=== PATIENT | female | born 1945 | race Caucasian/White ===

== ENCOUNTER 2018-05-03 20:23 | Inpatient (IN) | payer MEDICARE ==
[~2018-05-03] VITALS: Ht 170.2 cm; Wt 70.4 kg
[2018-05-03 21:15] LABS: BASO # 0.1 x10^3/uL (0.0-0.2); BASO % 1 % (0-3); EOS # 0.2 x10^3/uL (0.0-0.7); EOS % 4 % (0-3); HEMATOCRIT 42.4 % (36.0-47.0); HEMOGLOBIN 14.3 g/dL (12.0-15.5); LYMPH # 1.3 x10^3/uL (1.0-4.8); LYMPH % 26 % (24-48); MEAN CORPUSCULAR HEMOGLOBIN 30 pg (25-35); MEAN CORPUSCULAR HGB CONC 34 g/dL (31-37); MEAN CORPUSCULAR VOLUME 89 fL (79-100); MONO # 0.7 x10^3/uL (0.0-1.1); MONO % 14 % (0-9); NEUT # 2.7 x10^3uL (1.8-7.7); NEUT % 55 % (31-73); PLATELET COUNT 232 x10^3/uL (140-400); RED BLOOD COUNT 4.76 x10^6/uL (3.50-5.40); RED CELL DISTRIBUTION WIDTH 13.6 % (11.5-14.5)
[2018-05-03 21:24] LABS: ALBUMIN 3.4 g/dL (3.4-5.0); CALCIUM 9.1 mg/dL (8.5-10.1); CREATININE 0.9 mg/dL (0.6-1.0); GFR 61.5; MAGNESIUM 2.1 mg/dL (1.8-2.4); TOTAL BILIRUBIN 0.5 mg/dL (0.2-1.0); TOTAL PROTEIN 6.7 g/dL (6.4-8.2)
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
[2018-05-03 21:35] LABS: BACTERIA,URINE FEW /HPF (0-FEW); BILIRUBIN,URINE NEG (NEG); CLARITY,URINE HAZY; COLOR,URINE YELLOW; GLUCOSE,URINE NEG (NEG); NITRITE,URINE NEG (NEG); SQUAMOUS EPITHELIAL CELL,UR MOD /LPF; UROBILINOGEN,URINE 0.2 mg/dL (0.2 mg/dL); WBC,URINE 20-40 /HPF (0-4)
--- NOTE | 2018-05-03 21:47 | EKG ---
[address] [address] Test Date: 2018-05-03 Test Time: 21:39:44 Pat Name: TRA MORENO Department: Room: Gender: F Vascular Sonographer: BENJAMÍN : 1945 Requested By: LIAT FINNEY Order Number: [id number] Reading MD: Roberto Zuniga MD Measurements Intervals [place] Rate: 53 P: 40 [place]: 162 QRS: -12 QRSD: 94 T: 17 QT: 432 QTc: 408 Interpretive Statements SINUS RHYTHM Electronically Signed On 05-05-2018 13:15:29 CDT by Roberto Zuniga MD
[2018-05-03] MEDS ORDERED: cefTRIAXone SODIUM 1 GM VIAL IV ONE (22:37)
[2018-05-03] MEDS ORDERED: cefTRIAXone IM 1 GM VIAL IM ONE (22:45)
[2018-05-03] MEDS ORDERED: ACETAMINOPHEN 325 MG TABLET PO PRN (23:15)
[2018-05-03] MEDS ORDERED: METHYL SALICYLATE/MENTHOL TOPICAL OINTMENT 29GM TUBE. TP PRN (23:15)
[2018-05-03] MEDS ORDERED: MAGNESIUM HYDROXIDE 2,400 MG/30 ML ORAL.SUSP. PO PRN (23:15)
[2018-05-03] MEDS ORDERED: MAG HYDROX/AL HYDROX/SIMETH 30 ML ORAL.SUSP PO PRN (23:15)
[2018-05-03] MEDS ORDERED: CEPH-264 PO (23:59)
[2018-05-03] MEDS ORDERED: OMEP20TA8 PO (23:59)
[2018-05-03] MEDS ORDERED: METH5TAB85 PO (23:59)
[2018-05-03] MEDS ORDERED: HYDR28.311 RC ×2 (23:59)
[2018-05-03] MEDS ORDERED: ACET325T9 PO ×2 (23:59)
[2018-05-03] MEDS ORDERED: METO50TA6 PO (23:59)
[2018-05-03] MEDS ORDERED: TRAM-48 PO (23:59)
[2018-05-03] MEDS ORDERED: QUET25TA5 PO ×2 (23:59)
[2018-05-03] MEDS ORDERED: CITA10TA4 PO (23:59)
[2018-05-03] MEDS ORDERED: ONDA4TAB11 PO (23:59)
[2018-05-03] MEDS ORDERED: MULT-658 PO (23:59)
[2018-05-04] MEDS ORDERED: NON FORMULARY ITEM (Quetiapine Fumarate (Seroquel) 25 MG) PO PRN (00:15)
[2018-05-04] MEDS ORDERED: ACETAMINOPHEN 325 MG TABLET PO PRN (00:15)
[2018-05-04] MEDS ORDERED: HYDROCORTISONE 2.5% RECTAL CREAM 30GM TUBE. RC PRN (00:15)
[2018-05-04] MEDS ORDERED: NON FORMULARY ITEM (Ondansetron Hcl 4 MG) PO PRN (00:15)
[2018-05-04] MEDS ORDERED: ONDANSETRON ODT 4 MG TAB.RAPDIS PO PRN (02:30)
[2018-05-04] MEDS ORDERED: METHIMAZOLE 5 MG PO SCH (06:00)
[2018-05-04] MEDS ORDERED: NON FORMULARY ITEM (Cephalexin (Keflex) 500 MG) PO SCH (06:00)
[2018-05-04] MEDS: CEPHALEXIN 250 MG CAPSULE PO SCH ×3 (06:01→17:18)
[2018-05-04 06:10] VITALS: BP 136/65
[2018-05-04] MEDS ORDERED: NON FORMULARY ITEM (Omeprazole 20 MG) PO SCH (07:00)
[2018-05-04] MEDS: PANTOPRAZOLE 40 MG TABLET. PO SCH (07:30)
[2018-05-04] MEDS ORDERED: METOPROLOL TARTRATE 50 MG PO SCH (09:00)
[2018-05-04] MEDS: METOPROLOL TART IMMED RELEASE 50 MG TABLET PO SCH ×2 (09:00→21:16)
[2018-05-04] MEDS: ACETAMINOPHEN 325 MG TABLET PO SCH ×2 (09:00→21:17)
[2018-05-04] MEDS ORDERED: NON FORMULARY ITEM (Multivits-Min/Fa/Lycopene/Lut (Centrum Silver Tablet) 1 EACH) PO SCH (09:00)
[2018-05-04] MEDS: CITALOPRAM 10 MG TABLET. PO SCH (09:00)
[2018-05-04] MEDS: MULTIVITAMIN with MINERAL TABLET. PO SCH (09:00)
[2018-05-04] MEDS: QUEtiapine 25 MG TABLET. PO PRN (10:13)
[2018-05-04 10:35] LABS: HDLC 51 mg/dL (40-60); LDLC 68 mg/dL (0-100); TRIGLYCERIDES 121 mg/dL (0-150); VLDLC 24 mg/dL (0-40)
[2018-05-04 10:36] LABS: THYROID STIM HORMONE (TSH) < 0.007 uIU/mL (0.358-3.740)
[2018-05-04 12:10] LABS: HEMOGLOBIN A1C 5.5 % (4.8-5.6)
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
[2018-05-04 16:20] VITALS: BP 115/66
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
--- NOTE | 2018-05-04 20:59 | PDOC ---
Exam Note: [place] Note: Please also refer to the separate dictated note~for this date of service dictated separately.~Patient seen individually. Discussed the patient with Nursing staff reviewed the chart.~Reviewed interim history and current functioning. Reviewed vital signs,~Labs/ Radiology~and current medications noted below. Continue current treatment with the changes noted in the dictated addendum note Assessment: Vital Signs: Vital Signs Date Time Temp Pulse Resp B/P (MAP) Pulse Ox O2 Delivery O2 Flow Rate FiO2 05/04/18 16:20 98.3 100 16 115/66 (82) 95 05/04/18 06:10 Room Air Current Medications: Meds: Current Medications Ceftriaxone Sodium 1 gm/ Sodium Chloride 50 ml @ 100 mls/hr 1X ONCE IV ; Start 05/03/18 at 22:30; Stop 05/03/18 at 22:30; Status DC Ceftriaxone Sodium (Rocephin Im) 1 gm 1X ONCE IM Last administered on at 22:46; Start 05/03/18 at 22:45; Stop 05/03/18 at 23:54; Status DC Ceftriaxone Sodium (Rocephin) 1 gm STK-MED ONCE IV ; Start 05/03/18 at 22:37; Stop 05/03/18 at 22:38; Status DC Acetaminophen (Tylenol) 650 mg PRN Q6HRS PRN PO PAIN / TEMP; Start 05/03/18 at 23:15; Status Cancel Multi-Ingredient Ointment (Analgesic [place]) 1 bessy PRN QID PRN TP MUSCLE PAIN; Start 05/03/18 at 23:15 Al Hydroxide/Mg Hydroxide (Mylanta Plus Xs) 15 ml PRN AFTMEALHC PRN PO DYSPEPSIA; Start 05/03/18 at 23:15 Magnesium Hydroxide (Milk Of Magnesia) 2,400 mg PRN QHS PRN PO CONSTIPATION; Start 05/03/18 at 23:15 Citalopram Hydrobromide (CeleXA) 10 mg DAILY PO ; Start 05/04/18 at 09:00 Non-Formulary Medication (Quetiapine Fumarate (Seroquel)) 25 mg PRN DAILY PRN PO AGITATION; Start 05/04/18 at 00:15; Status UNV Non-Formulary Medication (Quetiapine Fumarate (Seroquel)) 25 mg QHS PO ; Start 05/04/18 at 21:00; Status UNV Acetaminophen (Tylenol) 650 mg BID PO ; Start 05/04/18 at 09:00 Acetaminophen (Tylenol) 650 mg PRN Q6HRS PRN PO PAIN; Start 05/04/18 at 00:15 Hydrocortisone (Proctosol-Hc) 1 bessy PRN BID PRN RC RECTAL PAIN; Start 05/04/18 at 00:15 Tramadol HCl (Ultram) 50 mg PRN BID PRN PO PAIN; Start 05/04/18 at 00:15 Non-Formulary Medication (Cephalexin (Keflex)) 500 mg Q6HRS PO ; Start 05/04/18 at 06:00; Status UNV Non-Formulary Medication (Methimazole (Tapazole)) 5 mg Q8HRS PO ; Start 05/04/18 at 06:00; Status UNV Non-Formulary Medication (Metoprolol Tartrate ) 50 mg BID PO ; Start 05/04/18 at 09:00; Stop 05/04/18 at 09:00; Status Cancel Non-Formulary Medication (Multivits-Min/ Fa/Lycopene/Lut (Centrum Silver Tablet) ) 1 each DAILY PO ; Start 05/04/18 at 09:00; Stop 05/04/18 at 09:00; Status DC Non-Formulary Medication (Omeprazole ) 20 mg DAILY07 PO ; Start 05/04/18 at 07:00 ; Stop 05/04/18 at 07:00; Status DC Non-Formulary Medication (Ondansetron Hcl ) 4 mg PRN TID PRN PO NAUSEA/VOMITING ; Start 05/04/18 at 00:15; Status UNV Cephalexin HCl (Keflex) 500 mg Q6HRS PO Last administered on 05/04/18at 17:18; Start 05/04/18 at 06:00; Stop 05/06/18 at 19:00 Methimazole (Tapazole) 5 mg Q8HRS PO Last administered on 05/04/18at 13:53; Start 05/04/18 at 06:00 Quetiapine Fumarate (SEROquel) 25 mg HS PO ; Start 05/04/18 at 21:00 Quetiapine Fumarate (SEROquel) 25 mg PRN DAILY PRN PO ANXIETY / AGITATION Last administered on 05/04/18at 10:13; Start 05/04/18 at 02:30 Ondansetron HCl (Zofran Odt) 4 mg PRN TID PRN PO NAUSEA/VOMITING; Start at 02:30 Metoprolol Tartrate (Lopressor) 50 mg BID PO ; Start 05/04/18 at 09:00 Multivitamins/ Calcium (Thera-M Plus) 1 tab DAILY PO ; Start 05/04/18 at 09:00 Pantoprazole Sodium (Protonix) 40 mg DAILYAC PO ; Start 05/04/18 at 07:30 Trazodone HCl (Desyrel) 25 mg PRN QHS PRN PO INSOMNIA, MAY REPEAT X1; Start 05/04/18 at 19:45 Active Scripts Active Reported Proctosol-Hc (Hydrocortisone) 28.35 Gm Cream..g. 1 Applic RC BID Proctosol-Hc (Hydrocortisone) 28.35 Gm Cream..g. 1 Applic RC PRN BID PRN Ondansetron Hcl 4 Mg Tablet 4 Mg PO PRN TID PRN Metoprolol Tartrate 50 Mg Tablet 50 Mg PO BID Omeprazole 20 Mg Tablet.dr 20 Mg PO DAILY07 Citalopram Hbr (Citalopram Hydrobromide) 10 Mg Tablet 10 Mg PO DAILY Centrum Silver Tablet (Multivits-Min/Fa/Lycopene/Lut) 1 Each Tablet 1 Each PO DAILY Keflex (Cephalexin) 500 Mg Capsule 500 Mg PO Q6HRS Ultram (Tramadol HCl) 50 Mg Tablet 50 Mg PO BID PRN Tapazole (Methimazole) 5 Mg Tablet 5 Mg PO Q8HRS Seroquel (Quetiapine Fumarate) 25 Mg Tablet 25 Mg PO PRN DAILY PRN Seroquel (Quetiapine Fumarate) 25 Mg Tablet 25 Mg PO QHS Tylenol (Acetaminophen) 325 Mg Tablet 650 Mg PO BID Tylenol (Acetaminophen) 325 Mg Tablet 650 Mg PO PRN Q6HRS PRN I have reviewed the current psychotropics carefully including drug interactions. Risk benefit ratio favors no change other than as noted in my dictated progress note. Diagnosis: Problems: (1) Dementia due to Alzheimer's disease (2) Anxiety disorder (3) Dementia in Alzheimer's disease with delusions (4) Dementia in Alzheimer's disease with depression (5) Dementia, vascular, with delusions (6) Dementia, vascular, with depression (7) Impulse control disorder KADEN RIVAS MD May 04, 2018 20:59
[2018-05-04] MEDS ORDERED: NON FORMULARY ITEM (Quetiapine Fumarate (Seroquel) 25 MG) PO SCH (21:00)
[2018-05-04] MEDS: traZODone 50 MG TABLET. PO PRN (21:16)
[2018-05-04] MEDS: QUEtiapine 25 MG TABLET. PO SCH (21:17)
[2018-05-05] MEDS: CEPHALEXIN 250 MG CAPSULE PO SCH ×5 (00:07→23:53)
[2018-05-05] MEDS: traZODone 50 MG TABLET. PO PRN ×3 (00:31→22:12)
[2018-05-05 06:21] VITALS: BP 116/63
[2018-05-05] MEDS: METOPROLOL TART IMMED RELEASE 50 MG TABLET PO SCH ×2 (09:00→20:48)
[2018-05-05] MEDS: ACETAMINOPHEN 325 MG TABLET PO SCH ×2 (09:39→20:48)
[2018-05-05] MEDS: PANTOPRAZOLE 40 MG TABLET. PO SCH (09:39)
[2018-05-05] MEDS: CITALOPRAM 10 MG TABLET. PO SCH (09:39)
[2018-05-05] MEDS: MULTIVITAMIN with MINERAL TABLET. PO SCH (09:39)
[2018-05-05 16:03] VITALS: BP 142/82
[2018-05-05] MEDS: QUEtiapine 25 MG TABLET. PO SCH (20:47)
[2018-05-05] MEDS: MIRTAZAPINE 7.5 MG TABLET. PO SCH (20:47)
--- NOTE | 2018-05-05 21:00 | PDOC ---
Exam Note: [place] Note: Please also refer to the separate dictated note~for this date of service dictated separately.~Patient seen individually. Discussed the patient with Nursing staff reviewed the chart.~Reviewed interim history and current functioning. Reviewed vital signs,~Labs/ Radiology~and current medications noted below. Continue current treatment with the changes noted in the dictated addendum note Assessment: Vital Signs: Vital Signs Date Time Temp Pulse Resp B/P (MAP) Pulse Ox O2 Delivery O2 Flow Rate FiO2 05/05/18 20:48 109 142/82 05/05/18 16:03 18 05/05/18 06:21 97.5 93 05/04/18 06:10 Room Air I&O Intake and Output 05/05/18 06:59 Intake Total 580 ml Balance 580 ml Intake Oral 580 ml # Voids 1 # Bowel Movements 1 Current Medications: Meds: Current Medications Ceftriaxone Sodium 1 gm/ Sodium Chloride 50 ml @ 100 mls/hr 1X ONCE IV ; Start 05/03/18 at 22:30; Stop 05/03/18 at 22:30; Status DC Ceftriaxone Sodium (Rocephin Im) 1 gm 1X ONCE IM Last administered on at 22:46; Start 05/03/18 at 22:45; Stop 05/03/18 at 23:54; Status DC Ceftriaxone Sodium (Rocephin) 1 gm STK-MED ONCE IV ; Start 05/03/18 at 22:37; Stop 05/03/18 at 22:38; Status DC Acetaminophen (Tylenol) 650 mg PRN Q6HRS PRN PO PAIN / TEMP; Start 05/03/18 at 23:15; Status Cancel Multi-Ingredient Ointment (Analgesic [place]) 1 bessy PRN QID PRN TP MUSCLE PAIN; Start 05/03/18 at 23:15 Al Hydroxide/Mg Hydroxide (Mylanta Plus Xs) 15 ml PRN AFTMEALHC PRN PO DYSPEPSIA; Start 05/03/18 at 23:15 Magnesium Hydroxide (Milk Of Magnesia) 2,400 mg PRN QHS PRN PO CONSTIPATION; Start 05/03/18 at 23:15 Citalopram Hydrobromide (CeleXA) 10 mg DAILY PO Last administered on 05/05/18at 09:39; Start 05/04/18 at 09:00 Non-Formulary Medication (Quetiapine Fumarate (Seroquel)) 25 mg PRN DAILY PRN PO AGITATION; Start 05/04/18 at 00:15; Status UNV Non-Formulary Medication (Quetiapine Fumarate (Seroquel)) 25 mg QHS PO ; Start 05/04/18 at 21:00; Status UNV Acetaminophen (Tylenol) 650 mg BID PO Last administered on 05/05/18at 20:48; Start 05/04/18 at 09:00 Acetaminophen (Tylenol) 650 mg PRN Q6HRS PRN PO PAIN; Start 05/04/18 at 00:15 Hydrocortisone (Proctosol-Hc) 1 bessy PRN BID PRN RC RECTAL PAIN; Start 05/04/18 at 00:15 Tramadol HCl (Ultram) 50 mg PRN BID PRN PO PAIN; Start 05/04/18 at 00:15 Non-Formulary Medication (Cephalexin (Keflex)) 500 mg Q6HRS PO ; Start 05/04/18 at 06:00; Status UNV Non-Formulary Medication (Methimazole (Tapazole)) 5 mg Q8HRS PO ; Start 05/04/18 at 06:00; Status UNV Non-Formulary Medication (Metoprolol Tartrate ) 50 mg BID PO ; Start 05/04/18 at 09:00; Stop 05/04/18 at 09:00; Status Cancel Non-Formulary Medication (Multivits-Min/ Fa/Lycopene/Lut (Centrum Silver Tablet) ) 1 each DAILY PO ; Start 05/04/18 at 09:00; Stop 05/04/18 at 09:00; Status DC Non-Formulary Medication (Omeprazole ) 20 mg DAILY07 PO ; Start 05/04/18 at 07:00 ; Stop 05/04/18 at 07:00; Status DC Non-Formulary Medication (Ondansetron Hcl ) 4 mg PRN TID PRN PO NAUSEA/VOMITING ; Start 05/04/18 at 00:15; Status UNV Cephalexin HCl (Keflex) 500 mg Q6HRS PO Last administered on 05/05/18at 17:20; Start 05/04/18 at 06:00; Stop 05/06/18 at 19:00 Methimazole (Tapazole) 5 mg Q8HRS PO Last administered on 05/05/18 20:48; Start 05/04/18 at 06:00 Quetiapine Fumarate (SEROquel) 25 mg HS PO Last administered on 05/05/18 20:47 ; Start 05/04/18 at 21:00 Quetiapine Fumarate (SEROquel) 25 mg PRN DAILY PRN PO ANXIETY / AGITATION Last administered on 05/04/18at 10:13; Start 05/04/18 at 02:30 Ondansetron HCl (Zofran Odt) 4 mg PRN TID PRN PO NAUSEA/VOMITING; Start at 02:30 Metoprolol Tartrate (Lopressor) 50 mg BID PO Last administered on 05/05/18 20: 48; Start 05/04/18 at 09:00 Multivitamins/ Calcium (Thera-M Plus) 1 tab DAILY PO Last administered on 09:39; Start 05/04/18 at 09:00 Pantoprazole Sodium (Protonix) 40 mg DAILYAC PO Last administered on 05/05/18 09:39; Start 05/04/18 at 07:30 Trazodone HCl (Desyrel) 25 mg PRN QHS PRN PO INSOMNIA, MAY REPEAT X1 Last administered on 05/05/18at 00:31; Start 05/04/18 at 19:45 Mirtazapine (Remeron) 7.5 mg QHS PO Last administered on 05/05/18 20:47; Start 05/05/18 at 21:00 Quetiapine Fumarate (SEROquel) 12.5 mg DAILY PO ; Start 05/06/18 at 09:00 Active Scripts Active Reported Proctosol-Hc (Hydrocortisone) 28.35 Gm Cream..g. 1 Applic RC BID Proctosol-Hc (Hydrocortisone) 28.35 Gm Cream..g. 1 Applic RC PRN BID PRN Ondansetron Hcl 4 Mg Tablet 4 Mg PO PRN TID PRN Metoprolol Tartrate 50 Mg Tablet 50 Mg PO BID Omeprazole 20 Mg Tablet.dr 20 Mg PO DAILY07 Citalopram Hbr (Citalopram Hydrobromide) 10 Mg Tablet 10 Mg PO DAILY Centrum Silver Tablet (Multivits-Min/Fa/Lycopene/Lut) 1 Each Tablet 1 Each PO DAILY Keflex (Cephalexin) 500 Mg Capsule 500 Mg PO Q6HRS Ultram (Tramadol HCl) 50 Mg Tablet 50 Mg PO BID PRN Tapazole (Methimazole) 5 Mg Tablet 5 Mg PO Q8HRS Seroquel (Quetiapine Fumarate) 25 Mg Tablet 25 Mg PO PRN DAILY PRN Seroquel (Quetiapine Fumarate) 25 Mg Tablet 25 Mg PO QHS Tylenol (Acetaminophen) 325 Mg Tablet 650 Mg PO BID Tylenol (Acetaminophen) 325 Mg Tablet 650 Mg PO PRN Q6HRS PRN I have reviewed the current psychotropics carefully including drug interactions. Risk benefit ratio favors no change other than as noted in my dictated progress note. Diagnosis: Problems: (1) Dementia due to Alzheimer's disease (2) Anxiety disorder (3) Dementia in Alzheimer's disease with delusions (4) Dementia in Alzheimer's disease with depression (5) Dementia, vascular, with delusions (6) Dementia, vascular, with depression (7) Impulse control disorder KADEN RIVAS MD May 05, 2018 21:00
[2018-05-05] MEDS: QUEtiapine 25 MG TABLET. PO PRN (22:11)
[2018-05-06] MEDS: CEPHALEXIN 250 MG CAPSULE PO SCH ×4 (06:00→17:55)
[2018-05-06] MEDS ORDERED: QUEtiapine 25 MG TABLET. PO SCH (09:00)
[2018-05-06] MEDS: MULTIVITAMIN with MINERAL TABLET. PO SCH (11:39)
[2018-05-06] MEDS: ACETAMINOPHEN 325 MG TABLET PO SCH ×2 (11:39→21:08)
[2018-05-06] MEDS: METOPROLOL TART IMMED RELEASE 50 MG TABLET PO SCH ×2 (11:39→21:17)
[2018-05-06] MEDS: CITALOPRAM 10 MG TABLET. PO SCH (11:40)
[2018-05-06] MEDS: PANTOPRAZOLE 40 MG TABLET. PO SCH (11:40)
[2018-05-06 16:25] VITALS: BP 91/51
--- NOTE | 2018-05-06 20:41 | PDOC ---
Exam Note: [place] Note: Please also refer to the separate dictated note~for this date of service dictated separately.~Patient seen individually. Discussed the patient with Nursing staff reviewed the chart.~Reviewed interim history and current functioning. Reviewed vital signs,~Labs/ Radiology~and current medications noted below. Continue current treatment with the changes noted in the dictated addendum note Assessment: Vital Signs: Vital Signs Date Time Temp Pulse Resp B/P (MAP) Pulse Ox O2 Delivery O2 Flow Rate FiO2 05/06/18 16:25 97.2 65 16 91/51 (64) 95 05/04/18 06:10 Room Air I&O Intake and Output 05/06/18 06:59 Intake Total 580 ml Balance 580 ml Intake Oral 580 ml # Voids 1 Current Medications: Meds: Current Medications Ceftriaxone Sodium 1 gm/ Sodium Chloride 50 ml @ 100 mls/hr 1X ONCE IV ; Start 05/03/18 at 22:30; Stop 05/03/18 at 22:30; Status DC Ceftriaxone Sodium (Rocephin Im) 1 gm 1X ONCE IM Last administered on at 22:46; Start 05/03/18 at 22:45; Stop 05/03/18 at 23:54; Status DC Ceftriaxone Sodium (Rocephin) 1 gm STK-MED ONCE IV ; Start 05/03/18 at 22:37; Stop 05/03/18 at 22:38; Status DC Acetaminophen (Tylenol) 650 mg PRN Q6HRS PRN PO PAIN / TEMP; Start 05/03/18 at 23:15; Status Cancel Multi-Ingredient Ointment (Analgesic [place]) 1 bessy PRN QID PRN TP MUSCLE PAIN; Start 05/03/18 at 23:15 Al Hydroxide/Mg Hydroxide (Mylanta Plus Xs) 15 ml PRN AFTMEALHC PRN PO DYSPEPSIA; Start 05/03/18 at 23:15 Magnesium Hydroxide (Milk Of Magnesia) 2,400 mg PRN QHS PRN PO CONSTIPATION; Start 05/03/18 at 23:15 Citalopram Hydrobromide (CeleXA) 10 mg DAILY PO Last administered on 05/06/18at 11:40; Start 05/04/18 at 09:00 Non-Formulary Medication (Quetiapine Fumarate (Seroquel)) 25 mg PRN DAILY PRN PO AGITATION; Start 05/04/18 at 00:15; Status UNV Non-Formulary Medication (Quetiapine Fumarate (Seroquel)) 25 mg QHS PO ; Start 05/04/18 at 21:00; Status UNV Acetaminophen (Tylenol) 650 mg BID PO Last administered on 05/06/18at 11:39; Start 05/04/18 at 09:00 Acetaminophen (Tylenol) 650 mg PRN Q6HRS PRN PO PAIN; Start 05/04/18 at 00:15 Hydrocortisone (Proctosol-Hc) 1 bessy PRN BID PRN RC RECTAL PAIN; Start 05/04/18 at 00:15 Tramadol HCl (Ultram) 50 mg PRN BID PRN PO PAIN; Start 05/04/18 at 00:15 Non-Formulary Medication (Cephalexin (Keflex)) 500 mg Q6HRS PO ; Start 05/04/18 at 06:00; Status UNV Non-Formulary Medication (Methimazole (Tapazole)) 5 mg Q8HRS PO ; Start 05/04/18 at 06:00; Status UNV Non-Formulary Medication (Metoprolol Tartrate ) 50 mg BID PO ; Start 05/04/18 at 09:00; Stop 05/04/18 at 09:00; Status Cancel Non-Formulary Medication (Multivits-Min/ Fa/Lycopene/Lut (Centrum Silver Tablet) ) 1 each DAILY PO ; Start 05/04/18 at 09:00; Stop 05/04/18 at 09:00; Status DC Non-Formulary Medication (Omeprazole ) 20 mg DAILY07 PO ; Start 05/04/18 at 07:00 ; Stop 05/04/18 at 07:00; Status DC Non-Formulary Medication (Ondansetron Hcl ) 4 mg PRN TID PRN PO NAUSEA/VOMITING ; Start 05/04/18 at 00:15; Status UNV Cephalexin HCl (Keflex) 500 mg Q6HRS PO Last administered on 05/06/18at 17:55; Start 05/04/18 at 06:00; Stop 05/06/18 at 19:00; Status DC Methimazole (Tapazole) 5 mg Q8HRS PO Last administered on 05/06/18at 14:25; Start 05/04/18 at 06:00 Quetiapine Fumarate (SEROquel) 25 mg HS PO Last administered on 05/05/18 20:47 ; Start 05/04/18 at 21:00 Quetiapine Fumarate (SEROquel) 25 mg PRN DAILY PRN PO ANXIETY / AGITATION Last administered on 05/05/18 22:11; Start 05/04/18 at 02:30; Stop 05/06/18 at 18:40; Status DC Ondansetron HCl (Zofran Odt) 4 mg PRN TID PRN PO NAUSEA/VOMITING; Start at 02:30 Metoprolol Tartrate (Lopressor) 50 mg BID PO Last administered on 05/06/18 11: 39; Start 05/04/18 at 09:00 Multivitamins/ Calcium (Thera-M Plus) 1 tab DAILY PO Last administered on 11:39; Start 05/04/18 at 09:00 Pantoprazole Sodium (Protonix) 40 mg DAILYAC PO Last administered on 05/06/18 11:40; Start 05/04/18 at 07:30 Trazodone HCl (Desyrel) 25 mg PRN QHS PRN PO INSOMNIA, MAY REPEAT X1 Last administered on 05/05/18 22:12; Start 05/04/18 at 19:45; Stop 05/06/18 at 18:40; Status DC Mirtazapine (Remeron) 7.5 mg QHS PO Last administered on 05/05/18at 20:47; Start 05/05/18 at 21:00 Quetiapine Fumarate (SEROquel) 12.5 mg DAILY PO Last administered on 05/06/18 11:41; Start 05/06/18 at 09:00; Stop 05/06/18 at 18:40; Status DC Quetiapine Fumarate (SEROquel) 12.5 mg 0900,1700 PO ; Start 05/07/18 at 09:00 Trazodone HCl (Desyrel) 50 mg PRN QHS PRN PO INSOMNIA, MAY REPEAT X1; Start 05/06/18 at 18:45 Trazodone HCl (Desyrel) 50 mg QHS PO ; Start 05/06/18 at 21:00 Olanzapine (ZyPREXA ZYDIS) 2.5 mg PRN Q2HR PRN PO PSYCHOSIS; Start 05/06/18 at 18:45 Active Scripts Active Reported Proctosol-Hc (Hydrocortisone) 28.35 Gm Cream..g. 1 Applic RC BID Proctosol-Hc (Hydrocortisone) 28.35 Gm Cream..g. 1 Applic RC PRN BID PRN Ondansetron Hcl 4 Mg Tablet 4 Mg PO PRN TID PRN Metoprolol Tartrate 50 Mg Tablet 50 Mg PO BID Omeprazole 20 Mg Tablet.dr 20 Mg PO DAILY07 Citalopram Hbr (Citalopram Hydrobromide) 10 Mg Tablet 10 Mg PO DAILY Centrum Silver Tablet (Multivits-Min/Fa/Lycopene/Lut) 1 Each Tablet 1 Each PO DAILY Keflex (Cephalexin) 500 Mg Capsule 500 Mg PO Q6HRS Ultram (Tramadol HCl) 50 Mg Tablet 50 Mg PO BID PRN Tapazole (Methimazole) 5 Mg Tablet 5 Mg PO Q8HRS Seroquel (Quetiapine Fumarate) 25 Mg Tablet 25 Mg PO PRN DAILY PRN Seroquel (Quetiapine Fumarate) 25 Mg Tablet 25 Mg PO QHS Tylenol (Acetaminophen) 325 Mg Tablet 650 Mg PO BID Tylenol (Acetaminophen) 325 Mg Tablet 650 Mg PO PRN Q6HRS PRN I have reviewed the current psychotropics carefully including drug interactions. Risk benefit ratio favors no change other than as noted in my dictated progress note. Diagnosis: Problems: (1) Dementia due to Alzheimer's disease (2) Anxiety disorder (3) Dementia in Alzheimer's disease with delusions (4) Dementia in Alzheimer's disease with depression (5) Dementia, vascular, with delusions (6) Dementia, vascular, with depression (7) Impulse control disorder KADEN RIVAS MD May 06, 2018 20:41
[2018-05-06] MEDS: MIRTAZAPINE 7.5 MG TABLET. PO SCH (21:09)
[2018-05-06] MEDS: QUEtiapine 25 MG TABLET. PO SCH (21:09)
[2018-05-06] MEDS: traZODone 50 MG TABLET. PO SCH (21:10)
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
[2018-05-06] MEDS: traZODone 50 MG TABLET. PO PRN (22:45)
[2018-05-07 06:18] VITALS: BP 102/49
[2018-05-07] MEDS ORDERED: QUEtiapine 25 MG TABLET. PO SCH (09:00)
[2018-05-07] MEDS: MULTIVITAMIN with MINERAL TABLET. PO SCH (10:33)
[2018-05-07] MEDS: METOPROLOL TART IMMED RELEASE 50 MG TABLET PO SCH ×2 (10:33→20:57)
[2018-05-07] MEDS: ACETAMINOPHEN 325 MG TABLET PO SCH ×2 (10:33→20:56)
[2018-05-07] MEDS: CITALOPRAM 10 MG TABLET. PO SCH (10:33)
[2018-05-07] MEDS: PANTOPRAZOLE 40 MG TABLET. PO SCH (10:33)
[2018-05-07 16:16] VITALS: BP 138/82
[2018-05-07] MEDS: QUEtiapine 25 MG TABLET. PO SCH ×2 (17:03→20:57)
--- NOTE | 2018-05-07 20:38 | PDOC ---
Exam Note: [place] Note: Please also refer to the separate dictated note~for this date of service dictated separately.~Patient seen individually. Discussed the patient with Nursing staff reviewed the chart.~Reviewed interim history and current functioning. Reviewed vital signs,~Labs/ Radiology~and current medications noted below. Continue current treatment with the changes noted in the dictated addendum note Assessment: Vital Signs: Vital Signs Date Time Temp Pulse Resp B/P (MAP) Pulse Ox O2 Delivery O2 Flow Rate FiO2 05/07/18 16:16 61 18 138/82 (100) 95 05/07/18 06:18 98.2 05/04/18 06:10 Room Air I&O Intake and Output 05/07/18 07:00 Intake Total 340 ml Balance 340 ml Intake Oral 340 ml # Voids 1 # Bowel Movements 2 Current Medications: Meds: Current Medications Ceftriaxone Sodium 1 gm/ Sodium Chloride 50 ml @ 100 mls/hr 1X ONCE IV ; Start 05/03/18 at 22:30; Stop 05/03/18 at 22:30; Status DC Ceftriaxone Sodium (Rocephin Im) 1 gm 1X ONCE IM Last administered on at 22:46; Start 05/03/18 at 22:45; Stop 05/03/18 at 23:54; Status DC Ceftriaxone Sodium (Rocephin) 1 gm STK-MED ONCE IV ; Start 05/03/18 at 22:37; Stop 05/03/18 at 22:38; Status DC Acetaminophen (Tylenol) 650 mg PRN Q6HRS PRN PO PAIN / TEMP; Start 05/03/18 at 23:15; Status Cancel Multi-Ingredient Ointment (Analgesic [place]) 1 bessy PRN QID PRN TP MUSCLE PAIN; Start 05/03/18 at 23:15 Al Hydroxide/Mg Hydroxide (Mylanta Plus Xs) 15 ml PRN AFTMEALHC PRN PO DYSPEPSIA; Start 05/03/18 at 23:15 Magnesium Hydroxide (Milk Of Magnesia) 2,400 mg PRN QHS PRN PO CONSTIPATION; Start 05/03/18 at 23:15 Citalopram Hydrobromide (CeleXA) 10 mg DAILY PO Last administered on 05/07/18at 10:33; Start 05/04/18 at 09:00 Non-Formulary Medication (Quetiapine Fumarate (Seroquel)) 25 mg PRN DAILY PRN PO AGITATION; Start 05/04/18 at 00:15; Status UNV Non-Formulary Medication (Quetiapine Fumarate (Seroquel)) 25 mg QHS PO ; Start 05/04/18 at 21:00; Status UNV Acetaminophen (Tylenol) 650 mg BID PO Last administered on 05/07/18at 10:33; Start 05/04/18 at 09:00 Acetaminophen (Tylenol) 650 mg PRN Q6HRS PRN PO PAIN; Start 05/04/18 at 00:15 Hydrocortisone (Proctosol-Hc) 1 bessy PRN BID PRN RC RECTAL PAIN; Start 05/04/18 at 00:15 Tramadol HCl (Ultram) 50 mg PRN BID PRN PO PAIN; Start 05/04/18 at 00:15 Non-Formulary Medication (Cephalexin (Keflex)) 500 mg Q6HRS PO ; Start 05/04/18 at 06:00; Status UNV Non-Formulary Medication (Methimazole (Tapazole)) 5 mg Q8HRS PO ; Start 05/04/18 at 06:00; Status UNV Non-Formulary Medication (Metoprolol Tartrate ) 50 mg BID PO ; Start 05/04/18 at 09:00; Stop 05/04/18 at 09:00; Status Cancel Non-Formulary Medication (Multivits-Min/ Fa/Lycopene/Lut (Centrum Silver Tablet) ) 1 each DAILY PO ; Start 05/04/18 at 09:00; Stop 05/04/18 at 09:00; Status DC Non-Formulary Medication (Omeprazole ) 20 mg DAILY07 PO ; Start 05/04/18 at 07:00 ; Stop 05/04/18 at 07:00; Status DC Non-Formulary Medication (Ondansetron Hcl ) 4 mg PRN TID PRN PO NAUSEA/VOMITING ; Start 05/04/18 at 00:15; Status UNV Cephalexin HCl (Keflex) 500 mg Q6HRS PO Last administered on 05/06/18at 17:55; Start 05/04/18 at 06:00; Stop 05/06/18 at 19:00; Status DC Methimazole (Tapazole) 5 mg Q8HRS PO Last administered on 05/07/18 14:08; Start 05/04/18 at 06:00 Quetiapine Fumarate (SEROquel) 25 mg HS PO Last administered on 05/06/18 21:09 ; Start 05/04/18 at 21:00 Quetiapine Fumarate (SEROquel) 25 mg PRN DAILY PRN PO ANXIETY / AGITATION Last administered on 05/05/18 22:11; Start 05/04/18 at 02:30; Stop 05/06/18 at 18:40; Status DC Ondansetron HCl (Zofran Odt) 4 mg PRN TID PRN PO NAUSEA/VOMITING; Start at 02:30 Metoprolol Tartrate (Lopressor) 50 mg BID PO Last administered on 05/07/18 10: 33; Start 05/04/18 at 09:00 Multivitamins/ Calcium (Thera-M Plus) 1 tab DAILY PO Last administered on 10:33; Start 05/04/18 at 09:00 Pantoprazole Sodium (Protonix) 40 mg DAILYAC PO Last administered on 05/07/18 10:33; Start 05/04/18 at 07:30 Trazodone HCl (Desyrel) 25 mg PRN QHS PRN PO INSOMNIA, MAY REPEAT X1 Last administered on 05/05/18 22:12; Start 05/04/18 at 19:45; Stop 05/06/18 at 18:40; Status DC Mirtazapine (Remeron) 7.5 mg QHS PO Last administered on 05/06/18 21:09; Start 05/05/18 at 21:00 Quetiapine Fumarate (SEROquel) 12.5 mg DAILY PO Last administered on 05/06/18 11:41; Start 05/06/18 at 09:00; Stop 05/06/18 at 18:40; Status DC Quetiapine Fumarate (SEROquel) 12.5 mg 0900,1700 PO Last administered on 10:35; Start 05/07/18 at 09:00; Stop 05/07/18 at 16:38; Status DC Trazodone HCl (Desyrel) 50 mg PRN QHS PRN PO INSOMNIA, MAY REPEAT X1 Last administered on 7/3/18at 22:45; Start 05/06/18 at 18:45 Trazodone HCl (Desyrel) 50 mg QHS PO Last administered on 05/06/18at 21:10; Start 05/06/18 at 21:00 Olanzapine (ZyPREXA ZYDIS) 2.5 mg PRN Q2HR PRN PO PSYCHOSIS; Start 05/06/18 at 18:45 Quetiapine Fumarate (SEROquel) 12.5 mg 0900,1300,1700 PO Last administered on at 17:03; Start 05/07/18 at 17:00 Active Scripts Active Reported Proctosol-Hc (Hydrocortisone) 28.35 Gm Cream..g. 1 Applic RC BID Proctosol-Hc (Hydrocortisone) 28.35 Gm Cream..g. 1 Applic RC PRN BID PRN Ondansetron Hcl 4 Mg Tablet 4 Mg PO PRN TID PRN Metoprolol Tartrate 50 Mg Tablet 50 Mg PO BID Omeprazole 20 Mg Tablet.dr 20 Mg PO DAILY07 Citalopram Hbr (Citalopram Hydrobromide) 10 Mg Tablet 10 Mg PO DAILY Centrum Silver Tablet (Multivits-Min/Fa/Lycopene/Lut) 1 Each Tablet 1 Each PO DAILY Keflex (Cephalexin) 500 Mg Capsule 500 Mg PO Q6HRS Ultram (Tramadol HCl) 50 Mg Tablet 50 Mg PO BID PRN Tapazole (Methimazole) 5 Mg Tablet 5 Mg PO Q8HRS Seroquel (Quetiapine Fumarate) 25 Mg Tablet 25 Mg PO PRN DAILY PRN Seroquel (Quetiapine Fumarate) 25 Mg Tablet 25 Mg PO QHS Tylenol (Acetaminophen) 325 Mg Tablet 650 Mg PO BID Tylenol (Acetaminophen) 325 Mg Tablet 650 Mg PO PRN Q6HRS PRN I have reviewed the current psychotropics carefully including drug interactions. Risk benefit ratio favors no change other than as noted in my dictated progress note. Diagnosis: Problems: (1) Dementia due to Alzheimer's disease (2) Anxiety disorder (3) Dementia in Alzheimer's disease with delusions (4) Dementia in Alzheimer's disease with depression (5) Dementia, vascular, with delusions (6) Dementia, vascular, with depression (7) Impulse control disorder KADEN RIVAS MD May 07, 2018 20:38
[2018-05-07] MEDS: traZODone 50 MG TABLET. PO SCH (20:57)
[2018-05-07] MEDS: MIRTAZAPINE 7.5 MG TABLET. PO SCH (20:57)
[2018-05-08] MEDS: traZODone 50 MG TABLET. PO PRN ×2 (01:27→23:20)
[2018-05-08 05:49] VITALS: BP 89/46
[2018-05-08 06:18] VITALS: BP 100/65
[2018-05-08] MEDS: ACETAMINOPHEN 325 MG TABLET PO SCH ×2 (07:45→20:45)
[2018-05-08] MEDS: CITALOPRAM 10 MG TABLET. PO SCH (07:45)
[2018-05-08] MEDS: METOPROLOL TART IMMED RELEASE 50 MG TABLET PO SCH ×2 (07:46→20:45)
[2018-05-08] MEDS: PANTOPRAZOLE 40 MG TABLET. PO SCH (07:46)
[2018-05-08] MEDS: MULTIVITAMIN with MINERAL TABLET. PO SCH (07:46)
[2018-05-08] MEDS: QUEtiapine 25 MG TABLET. PO SCH ×4 (07:46→20:45)
[2018-05-08 16:06] VITALS: BP 111/67
[2018-05-08] MEDS: LOPERAMIDE 2 MG CAPSULE PO PRN (17:23)
[2018-05-08 19:39] LABS: BILIRUBIN,URINE NEG (NEG); CLARITY,URINE HAZY; COLOR,URINE YELLOW; GLUCOSE,URINE NEG (NEG); NITRITE,URINE NEG (NEG); UROBILINOGEN,URINE 0.2 mg/dL (0.2 mg/dL)
[2018-05-08 19:40] LABS: BACTERIA,URINE FEW /HPF (0-FEW); SQUAMOUS EPITHELIAL CELL,UR FEW /LPF
[2018-05-08] MEDS: traZODone 50 MG TABLET. PO SCH (20:45)
[2018-05-08] MEDS: MIRTAZAPINE 15 MG TABLET PO SCH (20:48)
--- NOTE | 2018-05-08 20:57 | PDOC ---
Exam Note: [place] Note: Please also refer to the separate dictated note~for this date of service dictated separately.~Patient seen individually. Discussed the patient with Nursing staff reviewed the chart.~Reviewed interim history and current functioning. Reviewed vital signs,~Labs/ Radiology~and current medications noted below. Continue current treatment with the changes noted in the dictated addendum note Assessment: Vital Signs: Vital Signs Date Time Temp Pulse Resp B/P (MAP) Pulse Ox O2 Delivery O2 Flow Rate FiO2 05/08/18 20:45 88 111/67 05/08/18 16:06 98.0 20 95 05/04/18 06:10 Room Air I&O Intake and Output 05/08/18 06:59 Intake Total 120 ml Balance 120 ml Intake Oral 120 ml # Voids 1 # Bowel Movements 1 Labs: Laboratory Tests Test 05/08/18 18:20 Urine Collection Type Unknown Urine Color Yellow Urine Clarity Hazy Urine pH 7.0 Urine Specific [place] 1.020 Urine Protein 100 mg/dl (NEG-TRACE) Urine Glucose (UA) Neg mg/dL (NEG) Urine Ketones (Stick) 80 mg/dL (NEG) Urine Blood Trace (NEG) Urine Nitrite Neg (NEG) Urine Bilirubin Neg (NEG) Urine Urobilinogen Dipstick 0.2 mg/dL (0.2 mg/dL) Urine Leukocyte Esterase Small (NEG) Urine RBC 6-10 /HPF (0-2) Urine WBC 5-10 /HPF (0-4) Urine Squamous Epithelial Cells Few /LPF Urine Bacteria Few /HPF (0-FEW) Urine Mucus Mod /LPF Current Medications: Meds: Current Medications Ceftriaxone Sodium 1 gm/ Sodium Chloride 50 ml @ 100 mls/hr 1X ONCE IV ; Start 05/03/18 at 22:30; Stop 05/03/18 at 22:30; Status DC Ceftriaxone Sodium (Rocephin Im) 1 gm 1X ONCE IM Last administered on at 22:46; Start 05/03/18 at 22:45; Stop 05/03/18 at 23:54; Status DC Ceftriaxone Sodium (Rocephin) 1 gm STK-MED ONCE IV ; Start 05/03/18 at 22:37; Stop 05/03/18 at 22:38; Status DC Acetaminophen (Tylenol) 650 mg PRN Q6HRS PRN PO PAIN / TEMP; Start 05/03/18 at 23:15; Status Cancel Multi-Ingredient Ointment (Analgesic [place]) 1 bessy PRN QID PRN TP MUSCLE PAIN; Start 05/03/18 at 23:15 Al Hydroxide/Mg Hydroxide (Mylanta Plus Xs) 15 ml PRN AFTMEALHC PRN PO DYSPEPSIA; Start 05/03/18 at 23:15 Magnesium Hydroxide (Milk Of Magnesia) 2,400 mg PRN QHS PRN PO CONSTIPATION; Start 05/03/18 at 23:15 Citalopram Hydrobromide (CeleXA) 10 mg DAILY PO Last administered on 05/08/18at 07:45; Start 05/04/18 at 09:00 Non-Formulary Medication (Quetiapine Fumarate (Seroquel)) 25 mg PRN DAILY PRN PO AGITATION; Start 05/04/18 at 00:15; Status UNV Non-Formulary Medication (Quetiapine Fumarate (Seroquel)) 25 mg QHS PO ; Start 05/04/18 at 21:00; Status UNV Acetaminophen (Tylenol) 650 mg BID PO Last administered on 05/08/18at 20:45; Start 05/04/18 at 09:00 Acetaminophen (Tylenol) 650 mg PRN Q6HRS PRN PO PAIN; Start 05/04/18 at 00:15 Hydrocortisone (Proctosol-Hc) 1 bessy PRN BID PRN RC RECTAL PAIN; Start 05/04/18 at 00:15 Tramadol HCl (Ultram) 50 mg PRN BID PRN PO PAIN; Start 05/04/18 at 00:15 Non-Formulary Medication (Cephalexin (Keflex)) 500 mg Q6HRS PO ; Start 05/04/18 at 06:00; Status UNV Non-Formulary Medication (Methimazole (Tapazole)) 5 mg Q8HRS PO ; Start 05/04/18 at 06:00; Status UNV Non-Formulary Medication (Metoprolol Tartrate ) 50 mg BID PO ; Start 05/04/18 at 09:00; Stop 05/04/18 at 09:00; Status Cancel Non-Formulary Medication (Multivits-Min/ Fa/Lycopene/Lut (Centrum Silver Tablet) ) 1 each DAILY PO ; Start 05/04/18 at 09:00; Stop 05/04/18 at 09:00; Status DC Non-Formulary Medication (Omeprazole ) 20 mg DAILY07 PO ; Start 05/04/18 at 07:00 ; Stop 05/04/18 at 07:00; Status DC Non-Formulary Medication (Ondansetron Hcl ) 4 mg PRN TID PRN PO NAUSEA/VOMITING ; Start 05/04/18 at 00:15; Status UNV Cephalexin HCl (Keflex) 500 mg Q6HRS PO Last administered on 05/06/18 17:55; Start 05/04/18 at 06:00; Stop 05/06/18 at 19:00; Status DC Methimazole (Tapazole) 5 mg Q8HRS PO Last administered on 05/08/18 20:49; Start 05/04/18 at 06:00 Quetiapine Fumarate (SEROquel) 25 mg HS PO Last administered on 05/08/18 20:45 ; Start 05/04/18 at 21:00 Quetiapine Fumarate (SEROquel) 25 mg PRN DAILY PRN PO ANXIETY / AGITATION Last administered on 05/05/18 22:11; Start 05/04/18 at 02:30; Stop 05/06/18 at 18:40; Status DC Ondansetron HCl (Zofran Odt) 4 mg PRN TID PRN PO NAUSEA/VOMITING; Start at 02:30 Metoprolol Tartrate (Lopressor) 50 mg BID PO Last administered on 05/08/18 20: 45; Start 05/04/18 at 09:00 Multivitamins/ Calcium (Thera-M Plus) 1 tab DAILY PO Last administered on 07:46; Start 05/04/18 at 09:00 Pantoprazole Sodium (Protonix) 40 mg DAILYAC PO Last administered on 05/08/18 07:46; Start 05/04/18 at 07:30 Trazodone HCl (Desyrel) 25 mg PRN QHS PRN PO INSOMNIA, MAY REPEAT X1 Last administered on 05/05/18 22:12; Start 05/04/18 at 19:45; Stop 05/06/18 at 18:40; Status DC Mirtazapine (Remeron) 7.5 mg QHS PO Last administered on 05/07/18at 20:57; Start 05/05/18 at 21:00; Stop 05/08/18 at 11:20; Status DC Quetiapine Fumarate (SEROquel) 12.5 mg DAILY PO Last administered on 05/06/18at 11:41; Start 05/06/18 at 09:00; Stop 05/06/18 at 18:40; Status DC Quetiapine Fumarate (SEROquel) 12.5 mg 0900,1700 PO Last administered on at 10:35; Start 05/07/18 at 09:00; Stop 05/07/18 at 16:38; Status DC Trazodone HCl (Desyrel) 50 mg PRN QHS PRN PO INSOMNIA, MAY REPEAT X1 Last administered on 05/08/18at 01:27; Start 05/06/18 at 18:45 Trazodone HCl (Desyrel) 50 mg QHS PO Last administered on 05/08/18at 20:45; Start 05/06/18 at 21:00 Olanzapine (ZyPREXA ZYDIS) 2.5 mg PRN Q2HR PRN PO PSYCHOSIS; Start 05/06/18 at 18:45 Quetiapine Fumarate (SEROquel) 12.5 mg 0900,1300,1700 PO Last administered on 17:24; Start 05/07/18 at 17:00 Mirtazapine (Remeron) 15 mg QHS PO Last administered on 05/08/18at 20:48; Start 05/08/18 at 21:00 Loperamide HCl (Imodium) 2 mg PRN QID PRN PO DIARRHEA Last administered on 17:23; Start 05/08/18 at 16:30 Active Scripts Active Reported Proctosol-Hc (Hydrocortisone) 28.35 Gm Cream..g. 1 Applic RC BID Proctosol-Hc (Hydrocortisone) 28.35 Gm Cream..g. 1 Applic RC PRN BID PRN Ondansetron Hcl 4 Mg Tablet 4 Mg PO PRN TID PRN Metoprolol Tartrate 50 Mg Tablet 50 Mg PO BID Omeprazole 20 Mg Tablet.dr 20 Mg PO DAILY07 Citalopram Hbr (Citalopram Hydrobromide) 10 Mg Tablet 10 Mg PO DAILY Centrum Silver Tablet (Multivits-Min/Fa/Lycopene/Lut) 1 Each Tablet 1 Each PO DAILY Keflex (Cephalexin) 500 Mg Capsule 500 Mg PO Q6HRS Ultram (Tramadol HCl) 50 Mg Tablet 50 Mg PO BID PRN Tapazole (Methimazole) 5 Mg Tablet 5 Mg PO Q8HRS Seroquel (Quetiapine Fumarate) 25 Mg Tablet 25 Mg PO PRN DAILY PRN Seroquel (Quetiapine Fumarate) 25 Mg Tablet 25 Mg PO QHS Tylenol (Acetaminophen) 325 Mg Tablet 650 Mg PO BID Tylenol (Acetaminophen) 325 Mg Tablet 650 Mg PO PRN Q6HRS PRN I have reviewed the current psychotropics carefully including drug interactions. Risk benefit ratio favors no change other than as noted in my dictated progress note. Diagnosis: Problems: (1) Dementia due to Alzheimer's disease (2) Anxiety disorder (3) Dementia in Alzheimer's disease with delusions (4) Dementia in Alzheimer's disease with depression (5) Dementia, vascular, with delusions (6) Dementia, vascular, with depression (7) Impulse control disorder KADEN RIVAS MD May 08, 2018 20:57
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
[2018-05-08] MEDS: traMADol 50 MG TABLET PO PRN (23:20)
[2018-05-09 05:52] VITALS: BP 95/53
[2018-05-09] MEDS: MULTIVITAMIN with MINERAL TABLET. PO SCH (07:27)
[2018-05-09] MEDS: PANTOPRAZOLE 40 MG TABLET. PO SCH (07:27)
[2018-05-09] MEDS: QUEtiapine 25 MG TABLET. PO SCH ×4 (07:28→19:48)
[2018-05-09] MEDS: ACETAMINOPHEN 325 MG TABLET PO SCH ×2 (07:28→19:48)
[2018-05-09] MEDS: CITALOPRAM 10 MG TABLET. PO SCH (07:28)
[2018-05-09] MEDS: METOPROLOL TART IMMED RELEASE 50 MG TABLET PO SCH ×2 (07:29→19:47)
[2018-05-09 16:40] VITALS: BP 94/65
[2018-05-09] MEDS: traZODone 50 MG TABLET. PO SCH (19:47)
[2018-05-09] MEDS: MIRTAZAPINE 15 MG TABLET PO SCH (19:47)
--- NOTE | 2018-05-09 23:06 | PDOC ---
Exam Note: [place] Note: Please also refer to the separate dictated note~for this date of service dictated separately.~Patient seen individually. Discussed the patient with Nursing staff reviewed the chart.~Reviewed interim history and current functioning. Reviewed vital signs,~Labs/ Radiology~and current medications noted below. Continue current treatment with the changes noted in the dictated addendum note Assessment: Vital Signs: Vital Signs Date Time Temp Pulse Resp B/P (MAP) Pulse Ox O2 Delivery O2 Flow Rate FiO2 05/09/18 19:47 88 94/65 05/09/18 16:40 97.9 22 96 Room Air I&O Intake and Output 05/09/18 06:59 Intake Total 420 ml Balance 420 ml Intake Oral 420 ml # Voids 1 # Bowel Movements 3 Current Medications: Meds: Current Medications Ceftriaxone Sodium 1 gm/ Sodium Chloride 50 ml @ 100 mls/hr 1X ONCE IV ; Start 05/03/18 at 22:30; Stop 05/03/18 at 22:30; Status DC Ceftriaxone Sodium (Rocephin Im) 1 gm 1X ONCE IM Last administered on at 22:46; Start 05/03/18 at 22:45; Stop 05/03/18 at 23:54; Status DC Ceftriaxone Sodium (Rocephin) 1 gm STK-MED ONCE IV ; Start 05/03/18 at 22:37; Stop 05/03/18 at 22:38; Status DC Acetaminophen (Tylenol) 650 mg PRN Q6HRS PRN PO PAIN / TEMP; Start 05/03/18 at 23:15; Status Cancel Multi-Ingredient Ointment (Analgesic [place]) 1 bessy PRN QID PRN TP MUSCLE PAIN; Start 05/03/18 at 23:15 Al Hydroxide/Mg Hydroxide (Mylanta Plus Xs) 15 ml PRN AFTMEALHC PRN PO DYSPEPSIA; Start 05/03/18 at 23:15 Magnesium Hydroxide (Milk Of Magnesia) 2,400 mg PRN QHS PRN PO CONSTIPATION; Start 05/03/18 at 23:15 Citalopram Hydrobromide (CeleXA) 10 mg DAILY PO Last administered on 05/09/18at 07:28; Start 05/04/18 at 09:00 Non-Formulary Medication (Quetiapine Fumarate (Seroquel)) 25 mg PRN DAILY PRN PO AGITATION; Start 05/04/18 at 00:15; Status UNV Non-Formulary Medication (Quetiapine Fumarate (Seroquel)) 25 mg QHS PO ; Start 05/04/18 at 21:00; Status UNV Acetaminophen (Tylenol) 650 mg BID PO Last administered on 05/09/18at 19:48; Start 05/04/18 at 09:00 Acetaminophen (Tylenol) 650 mg PRN Q6HRS PRN PO PAIN; Start 05/04/18 at 00:15 Hydrocortisone (Proctosol-Hc) 1 bessy PRN BID PRN RC RECTAL PAIN; Start 05/04/18 at 00:15 Tramadol HCl (Ultram) 50 mg PRN BID PRN PO PAIN Last administered on 05/08/18at 23:20; Start 05/04/18 at 00:15 Non-Formulary Medication (Cephalexin (Keflex)) 500 mg Q6HRS PO ; Start 05/04/18 at 06:00; Status UNV Non-Formulary Medication (Methimazole (Tapazole)) 5 mg Q8HRS PO ; Start 05/04/18 at 06:00; Status UNV Non-Formulary Medication (Metoprolol Tartrate ) 50 mg BID PO ; Start 05/04/18 at 09:00; Stop 05/04/18 at 09:00; Status Cancel Non-Formulary Medication (Multivits-Min/ Fa/Lycopene/Lut (Centrum Silver Tablet) ) 1 each DAILY PO ; Start 05/04/18 at 09:00; Stop 05/04/18 at 09:00; Status DC Non-Formulary Medication (Omeprazole ) 20 mg DAILY07 PO ; Start 05/04/18 at 07:00 ; Stop 05/04/18 at 07:00; Status DC Non-Formulary Medication (Ondansetron Hcl ) 4 mg PRN TID PRN PO NAUSEA/VOMITING ; Start 05/04/18 at 00:15; Status UNV Cephalexin HCl (Keflex) 500 mg Q6HRS PO Last administered on 05/06/18at 17:55; Start 05/04/18 at 06:00; Stop 05/06/18 at 19:00; Status DC Methimazole (Tapazole) 5 mg Q8HRS PO Last administered on 05/09/18 19:49; Start 05/04/18 at 06:00 Quetiapine Fumarate (SEROquel) 25 mg HS PO Last administered on 05/08/18 20:45 ; Start 05/04/18 at 21:00; Stop 05/09/18 at 18:48; Status DC Quetiapine Fumarate (SEROquel) 25 mg PRN DAILY PRN PO ANXIETY / AGITATION Last administered on 05/05/18 22:11; Start 05/04/18 at 02:30; Stop 05/06/18 at 18:40; Status DC Ondansetron HCl (Zofran Odt) 4 mg PRN TID PRN PO NAUSEA/VOMITING; Start at 02:30 Metoprolol Tartrate (Lopressor) 50 mg BID PO Last administered on 05/09/18 19: 47; Start 05/04/18 at 09:00 Multivitamins/ Calcium (Thera-M Plus) 1 tab DAILY PO Last administered on 07:27; Start 05/04/18 at 09:00 Pantoprazole Sodium (Protonix) 40 mg DAILYAC PO Last administered on 05/09/18 07:27; Start 05/04/18 at 07:30 Trazodone HCl (Desyrel) 25 mg PRN QHS PRN PO INSOMNIA, MAY REPEAT X1 Last administered on 05/05/18 22:12; Start 05/04/18 at 19:45; Stop 05/06/18 at 18:40; Status DC Mirtazapine (Remeron) 7.5 mg QHS PO Last administered on 05/07/18at 20:57; Start 05/05/18 at 21:00; Stop 05/08/18 at 11:20; Status DC Quetiapine Fumarate (SEROquel) 12.5 mg DAILY PO Last administered on 05/06/18 11:41; Start 05/06/18 at 09:00; Stop 05/06/18 at 18:40; Status DC Quetiapine Fumarate (SEROquel) 12.5 mg 0900,1700 PO Last administered on at 10:35; Start 05/07/18 at 09:00; Stop 05/07/18 at 16:38; Status DC Trazodone HCl (Desyrel) 50 mg PRN QHS PRN PO INSOMNIA, MAY REPEAT X1 Last administered on 05/08/18at 23:20; Start 05/06/18 at 18:45 Trazodone HCl (Desyrel) 50 mg QHS PO Last administered on 05/09/18at 19:47; Start 05/06/18 at 21:00 Olanzapine (ZyPREXA ZYDIS) 2.5 mg PRN Q2HR PRN PO PSYCHOSIS; Start 05/06/18 at 18:45 Quetiapine Fumarate (SEROquel) 12.5 mg 0900,1300,1700 PO Last administered on at 17:27; Start 05/07/18 at 17:00; Stop 05/09/18 at 18:48; Status DC Mirtazapine (Remeron) 15 mg QHS PO Last administered on 05/09/18at 19:47; Start 05/08/18 at 21:00 Loperamide HCl (Imodium) 2 mg PRN QID PRN PO DIARRHEA Last administered on at 17:23; Start 05/08/18 at 16:30 Quetiapine Fumarate (SEROquel) 25 mg 1700,2100 PO Last administered on 19:48; Start 05/09/18 at 21:00 Quetiapine Fumarate (SEROquel) 12.5 mg 0900,1300 PO ; Start 05/10/18 at 09:00 Active Scripts Active Reported Proctosol-Hc (Hydrocortisone) 28.35 Gm Cream..g. 1 Applic RC BID Proctosol-Hc (Hydrocortisone) 28.35 Gm Cream..g. 1 Applic RC PRN BID PRN Ondansetron Hcl 4 Mg Tablet 4 Mg PO PRN TID PRN Metoprolol Tartrate 50 Mg Tablet 50 Mg PO BID Omeprazole 20 Mg Tablet.dr 20 Mg PO DAILY07 Citalopram Hbr (Citalopram Hydrobromide) 10 Mg Tablet 10 Mg PO DAILY Centrum Silver Tablet (Multivits-Min/Fa/Lycopene/Lut) 1 Each Tablet 1 Each PO DAILY Keflex (Cephalexin) 500 Mg Capsule 500 Mg PO Q6HRS Ultram (Tramadol HCl) 50 Mg Tablet 50 Mg PO BID PRN Tapazole (Methimazole) 5 Mg Tablet 5 Mg PO Q8HRS Seroquel (Quetiapine Fumarate) 25 Mg Tablet 25 Mg PO PRN DAILY PRN Seroquel (Quetiapine Fumarate) 25 Mg Tablet 25 Mg PO QHS Tylenol (Acetaminophen) 325 Mg Tablet 650 Mg PO BID Tylenol (Acetaminophen) 325 Mg Tablet 650 Mg PO PRN Q6HRS PRN I have reviewed the current psychotropics carefully including drug interactions. Risk benefit ratio favors no change other than as noted in my dictated progress note. Diagnosis: Problems: (1) Dementia due to Alzheimer's disease (2) Anxiety disorder (3) Dementia in Alzheimer's disease with delusions (4) Dementia in Alzheimer's disease with depression (5) Dementia, vascular, with delusions (6) Dementia, vascular, with depression (7) Impulse control disorder KADEN RIVAS MD May 09, 2018 23:06
--- NOTE | 2018-05-10 01:44 | PN ---
DATE: 05/08/2018 This late entry 05/08/2018 covers elements not covered in my initial note 05/08/2018. SUBJECTIVE: I met with the patient in the evening, staffed at a treatment team meeting with the entire team in the morning. We reviewed the patient's history at length, diagnosis, progress, discharge plans, current medications. The patient slept 3-3/4 hours previous evening, remains confused, combative with cares, takes her medications in [place] Boost, but is having loose bowel movements possibly due to excessive Boost. Nursing staff will moderate this. REVIEW OF SYSTEMS: No CV, , pulmonary, eye, ENT system symptoms on review. Reliability poor. MENTAL STATUS EXAM: Oriented to herself. Insight, judgment, recent and remote memory, attention, concentration, fund of knowledge poor, consistent with her diagnosis mentioned in my initial note. IMPRESSION: Major neurocognitive disorder, Alzheimer, vascular with delusion, depression, behavioral disturbance. Rest unchanged. PLAN: Increase Remeron to 15 mg at bedtime to help with ongoing insomnia. Continue rest psychotropics unchanged. MAN Tosha RIVAS MD DR: ZAHRA/marian JOB#: [id number] / [id number]
[2018-05-10 06:21] VITALS: BP 95/58
[2018-05-10 09:33] LABS: BASO # 0.1 x10^3/uL (0.0-0.2); BASO % 1 % (0-3); EOS # 0.3 x10^3/uL (0.0-0.7); EOS % 4 % (0-3); HEMATOCRIT 42.2 % (36.0-47.0); HEMOGLOBIN 14.1 g/dL (12.0-15.5); LYMPH % 15 % (24-48); MEAN CORPUSCULAR HEMOGLOBIN 30 pg (25-35); MEAN CORPUSCULAR HGB CONC 33 g/dL (31-37); MEAN CORPUSCULAR VOLUME 90 fL (79-100); MONO # 0.8 x10^3/uL (0.0-1.1); MONO % 11 % (0-9); NEUT # 4.7 x10^3uL (1.8-7.7); NEUT % 69 % (31-73); PLATELET COUNT 275 x10^3/uL (140-400); WHITE BLOOD COUNT 6.8 x10^3/uL (4.0-11.0)
[2018-05-10] MEDS: PANTOPRAZOLE 40 MG TABLET. PO SCH (09:39)
[2018-05-10] MEDS: CITALOPRAM 10 MG TABLET. PO SCH (09:39)
[2018-05-10 09:40] LABS: ALBUMIN 3.3 g/dL (3.4-5.0); ALBUMIN/GLOBULIN RATIO 0.9 (1.0-1.7); CALCIUM 9.6 mg/dL (8.5-10.1); CREATININE 0.8 mg/dL (0.6-1.0); GFR 70.5; POTASSIUM 3.6 mmol/L (3.5-5.1); TOTAL BILIRUBIN 0.5 mg/dL (0.2-1.0); TOTAL PROTEIN 7.1 g/dL (6.4-8.2)
[2018-05-10] MEDS: ACETAMINOPHEN 325 MG TABLET PO SCH ×2 (09:40→19:45)
[2018-05-10] MEDS: MULTIVITAMIN with MINERAL TABLET. PO SCH (09:40)
[2018-05-10] MEDS: QUEtiapine 25 MG TABLET. PO SCH ×4 (09:41→19:45)
[2018-05-10] MEDS: METOPROLOL TART IMMED RELEASE 50 MG TABLET PO SCH ×2 (10:00→19:46)
[2018-05-10] MEDS ORDERED: NYSTATIN TOPICAL POWDER 15GM BOTTLE. TP ONE (14:29)
[2018-05-10 16:21] VITALS: BP 126/63
[2018-05-10] MEDS: MIRTAZAPINE 15 MG TABLET PO SCH (19:45)
[2018-05-10] MEDS: traZODone 50 MG TABLET. PO SCH (19:45)
--- NOTE | 2018-05-10 22:37 | PDOC ---
Exam Note: [place] Note: Please also refer to the separate dictated note~for this date of service dictated separately.~Patient seen individually. Discussed the patient with Nursing staff reviewed the chart.~Reviewed interim history and current functioning. Reviewed vital signs,~Labs/ Radiology~and current medications noted below. Continue current treatment with the changes noted in the dictated addendum note Assessment: Vital Signs: Vital Signs Date Time Temp Pulse Resp B/P (MAP) Pulse Ox O2 Delivery O2 Flow Rate FiO2 05/10/18 19:46 92 126/63 05/10/18 16:21 97.5 20 98 Room Air I&O Intake and Output 05/10/18 06:59 Intake Total 305 ml Balance 305 ml Intake Oral 305 ml # Bowel Movements 3 Labs: Laboratory Tests Test 05/10/18 06:15 05/10/18 09:17 Clostridium difficile Toxin (PCR) Negative (Negative) White Blood Count 6.8 x10^3/uL (4.0-11.0) Red Blood Count 4.70 x10^6/uL (3.50-5.40) Hemoglobin 14.1 g/dL (12.0-15.5) Hematocrit 42.2 % (36.0-47.0) Mean Corpuscular Volume 90 fL (79-100) Mean Corpuscular Hemoglobin 30 pg (25-35) Mean Corpuscular Hemoglobin Concent 33 g/dL (31-37) Red Cell Distribution Width 14.0 % (11.5-14.5) Platelet Count 275 x10^3/uL (140-400) Neutrophils (%) (Auto) 69 % (31-73) Lymphocytes (%) (Auto) 15 % (24-48) L Monocytes (%) (Auto) 11 % (0-9) H Eosinophils (%) (Auto) 4 % (0-3) H Basophils (%) (Auto) 1 % (0-3) Neutrophils # (Auto) 4.7 x10^3uL (1.8-7.7) Lymphocytes # (Auto) 1.0 x10^3/uL (1.0-4.8) Monocytes # (Auto) 0.8 x10^3/uL (0.0-1.1) Eosinophils # (Auto) 0.3 x10^3/uL (0.0-0.7) Basophils # (Auto) 0.1 x10^3/uL (0.0-0.2) Sodium Level 140 mmol/L (136-145) Potassium Level 3.6 mmol/L (3.5-5.1) Chloride Level 104 mmol/L (98-107) Carbon Dioxide Level 32 mmol/L (21-32) Anion Gap 4 (6-14) L Blood Urea Nitrogen 26 mg/dL (7-20) H Creatinine 0.8 mg/dL (0.6-1.0) Estimated GFR (Cockcroft-Gault) 70.5 BUN/Creatinine Ratio 33 (6-20) H Glucose Level 101 mg/dL (70-99) H Calcium Level 9.6 mg/dL (8.5-10.1) Total Bilirubin 0.5 mg/dL (0.2-1.0) Aspartate Amino Transferase (AST) 41 U/L (15-37) H Alanine Aminotransferase (ALT) 61 U/L (14-59) H Alkaline Phosphatase 89 U/L (46-116) Total Protein 7.1 g/dL (6.4-8.2) Albumin 3.3 g/dL (3.4-5.0) L Albumin/Globulin Ratio 0.9 (1.0-1.7) L Current Medications: Meds: Current Medications Ceftriaxone Sodium 1 gm/ Sodium Chloride 50 ml @ 100 mls/hr 1X ONCE IV ; Start 05/03/18 at 22:30; Stop 05/03/18 at 22:30; Status DC Ceftriaxone Sodium (Rocephin Im) 1 gm 1X ONCE IM Last administered on at 22:46; Start 05/03/18 at 22:45; Stop 05/03/18 at 23:54; Status DC Ceftriaxone Sodium (Rocephin) 1 gm STK-MED ONCE IV ; Start 05/03/18 at 22:37; Stop 05/03/18 at 22:38; Status DC Acetaminophen (Tylenol) 650 mg PRN Q6HRS PRN PO PAIN / TEMP; Start 05/03/18 at 23:15; Status Cancel Multi-Ingredient Ointment (Analgesic [place]) 1 bessy PRN QID PRN TP MUSCLE PAIN; Start 05/03/18 at 23:15 Al Hydroxide/Mg Hydroxide (Mylanta Plus Xs) 15 ml PRN AFTMEALHC PRN PO DYSPEPSIA; Start 05/03/18 at 23:15 Magnesium Hydroxide (Milk Of Magnesia) 2,400 mg PRN QHS PRN PO CONSTIPATION; Start 05/03/18 at 23:15 Citalopram Hydrobromide (CeleXA) 10 mg DAILY PO Last administered on 05/10/18at 09:39; Start 05/04/18 at 09:00 Non-Formulary Medication (Quetiapine Fumarate (Seroquel)) 25 mg PRN DAILY PRN PO AGITATION; Start 05/04/18 at 00:15; Status UNV Non-Formulary Medication (Quetiapine Fumarate (Seroquel)) 25 mg QHS PO ; Start 05/04/18 at 21:00; Status UNV Acetaminophen (Tylenol) 650 mg BID PO Last administered on 05/10/18at 19:45; Start 05/04/18 at 09:00 Acetaminophen (Tylenol) 650 mg PRN Q6HRS PRN PO PAIN; Start 05/04/18 at 00:15 Hydrocortisone (Proctosol-Hc) 1 bessy PRN BID PRN RC RECTAL PAIN; Start 05/04/18 at 00:15 Tramadol HCl (Ultram) 50 mg PRN BID PRN PO PAIN Last administered on 05/08/18at 23:20; Start 05/04/18 at 00:15 Non-Formulary Medication (Cephalexin (Keflex)) 500 mg Q6HRS PO ; Start 05/04/18 at 06:00; Status UNV Non-Formulary Medication (Methimazole (Tapazole)) 5 mg Q8HRS PO ; Start 05/04/18 at 06:00; Status UNV Non-Formulary Medication (Metoprolol Tartrate ) 50 mg BID PO ; Start 05/04/18 at 09:00; Stop 05/04/18 at 09:00; Status Cancel Non-Formulary Medication (Multivits-Min/ Fa/Lycopene/Lut (Centrum Silver Tablet) ) 1 each DAILY PO ; Start 05/04/18 at 09:00; Stop 05/04/18 at 09:00; Status DC Non-Formulary Medication (Omeprazole ) 20 mg DAILY07 PO ; Start 05/04/18 at 07:00 ; Stop 05/04/18 at 07:00; Status DC Non-Formulary Medication (Ondansetron Hcl ) 4 mg PRN TID PRN PO NAUSEA/VOMITING ; Start 05/04/18 at 00:15; Status UNV Cephalexin HCl (Keflex) 500 mg Q6HRS PO Last administered on 05/06/18 17:55; Start 05/04/18 at 06:00; Stop 05/06/18 at 19:00; Status DC Methimazole (Tapazole) 5 mg Q8HRS PO Last administered on 05/10/18 19:47; Start 05/04/18 at 06:00 Quetiapine Fumarate (SEROquel) 25 mg HS PO Last administered on 05/08/18 20:45 ; Start 05/04/18 at 21:00; Stop 05/09/18 at 18:48; Status DC Quetiapine Fumarate (SEROquel) 25 mg PRN DAILY PRN PO ANXIETY / AGITATION Last administered on 05/05/18 22:11; Start 05/04/18 at 02:30; Stop 05/06/18 at 18:40; Status DC Ondansetron HCl (Zofran Odt) 4 mg PRN TID PRN PO NAUSEA/VOMITING; Start at 02:30 Metoprolol Tartrate (Lopressor) 50 mg BID PO Last administered on 05/10/18 19: 46; Start 05/04/18 at 09:00 Multivitamins/ Calcium (Thera-M Plus) 1 tab DAILY PO Last administered on 09:40; Start 05/04/18 at 09:00 Pantoprazole Sodium (Protonix) 40 mg DAILYAC PO Last administered on 05/10/18 09:39; Start 05/04/18 at 07:30 Trazodone HCl (Desyrel) 25 mg PRN QHS PRN PO INSOMNIA, MAY REPEAT X1 Last administered on 05/05/18 22:12; Start 05/04/18 at 19:45; Stop 05/06/18 at 18:40; Status DC Mirtazapine (Remeron) 7.5 mg QHS PO Last administered on 05/07/18 20:57; Start 05/05/18 at 21:00; Stop 05/08/18 at 11:20; Status DC Quetiapine Fumarate (SEROquel) 12.5 mg DAILY PO Last administered on 05/06/18at 11:41; Start 05/06/18 at 09:00; Stop 05/06/18 at 18:40; Status DC Quetiapine Fumarate (SEROquel) 12.5 mg 0900,1700 PO Last administered on at 10:35; Start 05/07/18 at 09:00; Stop 05/07/18 at 16:38; Status DC Trazodone HCl (Desyrel) 50 mg PRN QHS PRN PO INSOMNIA, MAY REPEAT X1 Last administered on 05/08/18at 23:20; Start 05/06/18 at 18:45 Trazodone HCl (Desyrel) 50 mg QHS PO Last administered on 05/10/18at 19:45; Start 05/06/18 at 21:00 Olanzapine (ZyPREXA ZYDIS) 2.5 mg PRN Q2HR PRN PO PSYCHOSIS; Start 05/06/18 at 18:45 Quetiapine Fumarate (SEROquel) 12.5 mg 0900,1300,1700 PO Last administered on at 17:27; Start 05/07/18 at 17:00; Stop 05/09/18 at 18:48; Status DC Mirtazapine (Remeron) 15 mg QHS PO Last administered on 05/10/18at 19:45; Start 05/08/18 at 21:00 Loperamide HCl (Imodium) 2 mg PRN QID PRN PO DIARRHEA Last administered on 17:23; Start 05/08/18 at 16:30 Quetiapine Fumarate (SEROquel) 25 mg 1700,2100 PO Last administered on 19:45; Start 05/09/18 at 21:00 Quetiapine Fumarate (SEROquel) 12.5 mg 0900,1300 PO Last administered on at 13:52; Start 05/10/18 at 09:00; Stop 05/10/18 at 19:08; Status DC Quetiapine Fumarate (SEROquel) 12.5 mg DAILY@1300 PO ; Start 05/11/18 at 13:00 Quetiapine Fumarate (SEROquel) 25 mg DAILY PO ; Start 05/11/18 at 09:00 Active Scripts Active Reported Proctosol-Hc (Hydrocortisone) 28.35 Gm Cream..g. 1 Applic RC BID Proctosol-Hc (Hydrocortisone) 28.35 Gm Cream..g. 1 Applic RC PRN BID PRN Ondansetron Hcl 4 Mg Tablet 4 Mg PO PRN TID PRN Metoprolol Tartrate 50 Mg Tablet 50 Mg PO BID Omeprazole 20 Mg Tablet.dr 20 Mg PO DAILY07 Citalopram Hbr (Citalopram Hydrobromide) 10 Mg Tablet 10 Mg PO DAILY Centrum Silver Tablet (Multivits-Min/Fa/Lycopene/Lut) 1 Each Tablet 1 Each PO DAILY Keflex (Cephalexin) 500 Mg Capsule 500 Mg PO Q6HRS Ultram (Tramadol HCl) 50 Mg Tablet 50 Mg PO BID PRN Tapazole (Methimazole) 5 Mg Tablet 5 Mg PO Q8HRS Seroquel (Quetiapine Fumarate) 25 Mg Tablet 25 Mg PO PRN DAILY PRN Seroquel (Quetiapine Fumarate) 25 Mg Tablet 25 Mg PO QHS Tylenol (Acetaminophen) 325 Mg Tablet 650 Mg PO BID Tylenol (Acetaminophen) 325 Mg Tablet 650 Mg PO PRN Q6HRS PRN I have reviewed the current psychotropics carefully including drug interactions. Risk benefit ratio favors no change other than as noted in my dictated progress note. Diagnosis: Problems: (1) Dementia due to Alzheimer's disease (2) Anxiety disorder (3) Dementia in Alzheimer's disease with delusions (4) Dementia in Alzheimer's disease with depression (5) Dementia, vascular, with delusions (6) Dementia, vascular, with depression (7) Impulse control disorder KADEN RIVAS MD May 10, 2018 22:37
[2018-05-11 06:11] VITALS: BP 100/56
[2018-05-11] MEDS: METOPROLOL TART IMMED RELEASE 50 MG TABLET PO SCH ×2 (09:00→21:49)
[2018-05-11] MEDS: CITALOPRAM 10 MG TABLET. PO SCH (09:34)
[2018-05-11] MEDS: PANTOPRAZOLE 40 MG TABLET. PO SCH (09:34)
[2018-05-11] MEDS: ACETAMINOPHEN 325 MG TABLET PO SCH ×2 (09:34→19:23)
[2018-05-11] MEDS: QUEtiapine 25 MG TABLET. PO SCH ×4 (09:35→19:28)
[2018-05-11] MEDS: MULTIVITAMIN with MINERAL TABLET. PO SCH (09:35)
[2018-05-11 16:22] VITALS: BP 98/65
[2018-05-11] MEDS: MIRTAZAPINE 15 MG TABLET PO SCH (19:26)
[2018-05-11] MEDS: traZODone 50 MG TABLET. PO SCH (19:26)
[2018-05-11] MEDS: traMADol 50 MG TABLET PO PRN (19:28)
--- NOTE | 2018-05-11 19:42 | PN ---
DATE: 05/10/2018 This is a late entry, 05/10/2018, covers the elements not covered in my initial note. SUBJECTIVE: I met with the patient in the evening. The patient remains confused, anxious, restless, slept 5 hours previous night. At night, she was labile, exit seeking, had loose stool because of her Boost. C. diff is negative. REVIEW OF SYSTEMS: No CV, , pulmonary, eye, ENT system symptoms on review. Reliability poor. MENTAL STATUS EXAM: Oriented to herself. Insight, judgment, recent and remote memory, attention, concentration, fund of knowledge poor, consistent with her diagnosis as mentioned in my initial note. PLAN: Increase the 9 a.m. Seroquel to 25 mg at 5 p.m., it had previously been increased to 25 mg. Continue rest unchanged. MAN Tosha RIVAS MD DR: ZAHRA/marian JOB#: [id number] / [id number]
--- NOTE | 2018-05-11 19:46 | PN ---
DATE: 05/09/2018 This late entry 05/09/2018 covers elements not covered in my initial note. SUBJECTIVE: I met with the patient in the evening. The patient slept 5-1/4 hours, compliant with medications, confused, wandering, smacking at the staff in the evening time at 5:45. She had to be placed in the quiet area, door was open. She was pacing, restless, hyper. REVIEW OF SYSTEMS: No CV, , pulmonary, eye, ENT system symptoms on review. Reliability poor. MENTAL STATUS EXAM: Oriented to herself. Insight, judgment, recent and remote memory, attention, concentration, fund of knowledge poor, consistent with her diagnosis mentioned in my initial note. PLAN: Increase 5:00 p.m. Seroquel to 25 mg. Continue rest unchanged per initial note. MAN Tosha RIVAS MD DR: ZAHRA/marian JOB#: [id number] / [id number]
--- NOTE | 2018-05-11 20:47 | PDOC ---
Exam Note: [place] Note: Please also refer to the separate dictated note~for this date of service dictated separately.~Patient seen individually. Discussed the patient with Nursing staff reviewed the chart.~Reviewed interim history and current functioning. Reviewed vital signs,~Labs/ Radiology~and current medications noted below. Continue current treatment with the changes noted in the dictated addendum note Assessment: Vital Signs: Vital Signs Date Time Temp Pulse Resp B/P (MAP) Pulse Ox O2 Delivery O2 Flow Rate FiO2 05/11/18 19:28 22 Room Air 05/11/18 16:22 116 98/65 (76) 95 05/11/18 06:11 98.2 I&O Intake and Output 05/11/18 06:59 Intake Total 725 ml Balance 725 ml Intake Oral 725 ml # Bowel Movements 2 Current Medications: Meds: Current Medications Ceftriaxone Sodium 1 gm/ Sodium Chloride 50 ml @ 100 mls/hr 1X ONCE IV ; Start 05/03/18 at 22:30; Stop 05/03/18 at 22:30; Status DC Ceftriaxone Sodium (Rocephin Im) 1 gm 1X ONCE IM Last administered on at 22:46; Start 05/03/18 at 22:45; Stop 05/03/18 at 23:54; Status DC Ceftriaxone Sodium (Rocephin) 1 gm STK-MED ONCE IV ; Start 05/03/18 at 22:37; Stop 05/03/18 at 22:38; Status DC Acetaminophen (Tylenol) 650 mg PRN Q6HRS PRN PO PAIN / TEMP; Start 05/03/18 at 23:15; Status Cancel Multi-Ingredient Ointment (Analgesic Jay) 1 bessy PRN QID PRN TP MUSCLE PAIN; Start 05/03/18 at 23:15 Al Hydroxide/Mg Hydroxide (Mylanta Plus Xs) 15 ml PRN AFTMEALHC PRN PO DYSPEPSIA; Start 05/03/18 at 23:15 Magnesium Hydroxide (Milk Of Magnesia) 2,400 mg PRN QHS PRN PO CONSTIPATION; Start 05/03/18 at 23:15 Citalopram Hydrobromide (CeleXA) 10 mg DAILY PO Last administered on 05/11/18at 09:34; Start 05/04/18 at 09:00 Non-Formulary Medication (Quetiapine Fumarate (Seroquel)) 25 mg PRN DAILY PRN PO AGITATION; Start 05/04/18 at 00:15; Status UNV Non-Formulary Medication (Quetiapine Fumarate (Seroquel)) 25 mg QHS PO ; Start 05/04/18 at 21:00; Status UNV Acetaminophen (Tylenol) 650 mg BID PO Last administered on 05/11/18at 19:23; Start 05/04/18 at 09:00 Acetaminophen (Tylenol) 650 mg PRN Q6HRS PRN PO PAIN; Start 05/04/18 at 00:15 Hydrocortisone (Proctosol-Hc) 1 bessy PRN BID PRN RC RECTAL PAIN; Start 05/04/18 at 00:15 Tramadol HCl (Ultram) 50 mg PRN BID PRN PO PAIN Last administered on 05/11/18at 19:28; Start 05/04/18 at 00:15 Non-Formulary Medication (Cephalexin (Keflex)) 500 mg Q6HRS PO ; Start 05/04/18 at 06:00; Status UNV Non-Formulary Medication (Methimazole (Tapazole)) 5 mg Q8HRS PO ; Start 05/04/18 at 06:00; Status UNV Non-Formulary Medication (Metoprolol Tartrate ) 50 mg BID PO ; Start 05/04/18 at 09:00; Stop 05/04/18 at 09:00; Status Cancel Non-Formulary Medication (Multivits-Min/ Fa/Lycopene/Lut (Centrum Silver Tablet) ) 1 each DAILY PO ; Start 05/04/18 at 09:00; Stop 05/04/18 at 09:00; Status DC Non-Formulary Medication (Omeprazole ) 20 mg DAILY07 PO ; Start 05/04/18 at 07:00 ; Stop 05/04/18 at 07:00; Status DC Non-Formulary Medication (Ondansetron Hcl ) 4 mg PRN TID PRN PO NAUSEA/VOMITING ; Start 05/04/18 at 00:15; Status UNV Cephalexin HCl (Keflex) 500 mg Q6HRS PO Last administered on 05/06/18at 17:55; Start 05/04/18 at 06:00; Stop 05/06/18 at 19:00; Status DC Methimazole (Tapazole) 5 mg Q8HRS PO Last administered on 05/11/18 14:10; Start 05/04/18 at 06:00 Quetiapine Fumarate (SEROquel) 25 mg HS PO Last administered on 05/08/18 20:45 ; Start 05/04/18 at 21:00; Stop 05/09/18 at 18:48; Status DC Quetiapine Fumarate (SEROquel) 25 mg PRN DAILY PRN PO ANXIETY / AGITATION Last administered on 05/05/18 22:11; Start 05/04/18 at 02:30; Stop 05/06/18 at 18:40; Status DC Ondansetron HCl (Zofran Odt) 4 mg PRN TID PRN PO NAUSEA/VOMITING; Start at 02:30 Metoprolol Tartrate (Lopressor) 50 mg BID PO Last administered on 05/10/18 19: 46; Start 05/04/18 at 09:00 Multivitamins/ Calcium (Thera-M Plus) 1 tab DAILY PO Last administered on 09:35; Start 05/04/18 at 09:00 Pantoprazole Sodium (Protonix) 40 mg DAILYAC PO Last administered on 05/11/18 09:34; Start 05/04/18 at 07:30 Trazodone HCl (Desyrel) 25 mg PRN QHS PRN PO INSOMNIA, MAY REPEAT X1 Last administered on 05/05/18 22:12; Start 05/04/18 at 19:45; Stop 05/06/18 at 18:40; Status DC Mirtazapine (Remeron) 7.5 mg QHS PO Last administered on 05/07/18 20:57; Start 05/05/18 at 21:00; Stop 05/08/18 at 11:20; Status DC Quetiapine Fumarate (SEROquel) 12.5 mg DAILY PO Last administered on 05/06/18 11:41; Start 05/06/18 at 09:00; Stop 05/06/18 at 18:40; Status DC Quetiapine Fumarate (SEROquel) 12.5 mg 0900,1700 PO Last administered on 10:35; Start 05/07/18 at 09:00; Stop 05/07/18 at 16:38; Status DC Trazodone HCl (Desyrel) 50 mg PRN QHS PRN PO INSOMNIA, MAY REPEAT X1 Last administered on 05/08/18at 23:20; Start 05/06/18 at 18:45 Trazodone HCl (Desyrel) 50 mg QHS PO Last administered on 05/11/18 19:26; Start 05/06/18 at 21:00 Olanzapine (ZyPREXA ZYDIS) 2.5 mg PRN Q2HR PRN PO PSYCHOSIS; Start 05/06/18 at 18:45 Quetiapine Fumarate (SEROquel) 12.5 mg 0900,1300,1700 PO Last administered on 17:27; Start 05/07/18 at 17:00; Stop 05/09/18 at 18:48; Status DC Mirtazapine (Remeron) 15 mg QHS PO Last administered on 05/11/18 19:26; Start 05/08/18 at 21:00 Loperamide HCl (Imodium) 2 mg PRN QID PRN PO DIARRHEA Last administered on 17:23; Start 05/08/18 at 16:30 Quetiapine Fumarate (SEROquel) 25 mg 1700,2100 PO Last administered on 19:28; Start 05/09/18 at 21:00 Quetiapine Fumarate (SEROquel) 12.5 mg 0900,1300 PO Last administered on at 13:52; Start 05/10/18 at 09:00; Stop 05/10/18 at 19:08; Status DC Quetiapine Fumarate (SEROquel) 12.5 mg DAILY@1300 PO Last administered on 14:10; Start 05/11/18 at 13:00 Quetiapine Fumarate (SEROquel) 25 mg DAILY PO Last administered on 05/11/18at 09: 35; Start 05/11/18 at 09:00 Nystatin (Nystop) 1 bessy BID TP ; Start 05/11/18 at 21:00 Active Scripts Active Reported Proctosol-Hc (Hydrocortisone) 28.35 Gm Cream..g. 1 Applic RC BID Proctosol-Hc (Hydrocortisone) 28.35 Gm Cream..g. 1 Applic RC PRN BID PRN Ondansetron Hcl 4 Mg Tablet 4 Mg PO PRN TID PRN Metoprolol Tartrate 50 Mg Tablet 50 Mg PO BID Omeprazole 20 Mg Tablet.dr 20 Mg PO DAILY07 Citalopram Hbr (Citalopram Hydrobromide) 10 Mg Tablet 10 Mg PO DAILY Centrum Silver Tablet (Multivits-Min/Fa/Lycopene/Lut) 1 Each Tablet 1 Each PO DAILY Keflex (Cephalexin) 500 Mg Capsule 500 Mg PO Q6HRS Ultram (Tramadol HCl) 50 Mg Tablet 50 Mg PO BID PRN Tapazole (Methimazole) 5 Mg Tablet 5 Mg PO Q8HRS Seroquel (Quetiapine Fumarate) 25 Mg Tablet 25 Mg PO PRN DAILY PRN Seroquel (Quetiapine Fumarate) 25 Mg Tablet 25 Mg PO QHS Tylenol (Acetaminophen) 325 Mg Tablet 650 Mg PO BID Tylenol (Acetaminophen) 325 Mg Tablet 650 Mg PO PRN Q6HRS PRN I have reviewed the current psychotropics carefully including drug interactions. Risk benefit ratio favors no change other than as noted in my dictated progress note. Diagnosis: Problems: (1) Dementia due to Alzheimer's disease (2) Anxiety disorder (3) Dementia in Alzheimer's disease with delusions (4) Dementia in Alzheimer's disease with depression (5) Dementia, vascular, with delusions (6) Dementia, vascular, with depression (7) Impulse control disorder KADEN RIVAS MD May 11, 2018 20:47
[2018-05-11] MEDS: NYSTATIN TOPICAL POWDER 15GM BOTTLE. TP SCH (21:50)
[2018-05-12 06:09] VITALS: BP 110/60
[2018-05-12] MEDS: CITALOPRAM 10 MG TABLET. PO SCH (08:51)
[2018-05-12] MEDS: PANTOPRAZOLE 40 MG TABLET. PO SCH (08:51)
[2018-05-12] MEDS: QUEtiapine 25 MG TABLET. PO SCH ×4 (08:52→19:36)
[2018-05-12] MEDS: ACETAMINOPHEN 325 MG TABLET PO SCH ×2 (08:52→19:36)
[2018-05-12] MEDS: NYSTATIN TOPICAL POWDER 15GM BOTTLE. TP SCH ×2 (08:52→21:00)
[2018-05-12] MEDS: METOPROLOL TART IMMED RELEASE 50 MG TABLET PO SCH ×2 (08:52→19:36)
[2018-05-12] MEDS: MULTIVITAMIN with MINERAL TABLET. PO SCH (08:52)
[2018-05-12 09:48] LABS: BASO # 0.1 x10^3/uL (0.0-0.2); BASO % 1 % (0-3); EOS # 0.2 x10^3/uL (0.0-0.7); EOS % 2 % (0-3); HEMATOCRIT 40.2 % (36.0-47.0); HEMOGLOBIN 13.3 g/dL (12.0-15.5); LYMPH # 0.6 x10^3/uL (1.0-4.8); LYMPH % 7 % (24-48); MEAN CORPUSCULAR HEMOGLOBIN 29 pg (25-35); MEAN CORPUSCULAR HGB CONC 33 g/dL (31-37); MEAN CORPUSCULAR VOLUME 89 fL (79-100); MONO # 0.6 x10^3/uL (0.0-1.1); MONO % 7 % (0-9); NEUT # 6.9 x10^3uL (1.8-7.7); NEUT % 83 % (31-73); PLATELET COUNT 238 x10^3/uL (140-400); RED BLOOD COUNT 4.52 x10^6/uL (3.50-5.40); RED CELL DISTRIBUTION WIDTH 16.8 % (11.5-14.5); WHITE BLOOD COUNT 8.3 x10^3/uL (4.0-11.0)
[2018-05-12 16:07] VITALS: BP 100/71
[2018-05-12] MEDS: MIRTAZAPINE 15 MG TABLET PO SCH (19:36)
[2018-05-12] MEDS: traZODone 50 MG TABLET. PO SCH ×2 (19:36→23:30)
[2018-05-12] MEDS: DOCUSATE SODIUM 100 MG CAPSULE PO SCH (19:38)
--- NOTE | 2018-05-12 20:03 | PDOC ---
Exam Note: [place] Note: Please also refer to the separate dictated note~for this date of service dictated separately.~Patient seen individually. Discussed the patient with Nursing staff reviewed the chart.~Reviewed interim history and current functioning. Reviewed vital signs,~Labs/ Radiology~and current medications noted below. Continue current treatment with the changes noted in the dictated addendum note Assessment: Vital Signs: Vital Signs Date Time Temp Pulse Resp B/P (MAP) Pulse Ox O2 Delivery O2 Flow Rate FiO2 05/12/18 19:36 72 100/71 05/12/18 16:07 97.7 18 93 05/11/18 21:48 Room Air I&O Intake and Output 05/12/18 06:59 Intake Total 485 ml Balance 485 ml Intake Oral 485 ml # Bowel Movements 1 Labs: Laboratory Tests Test 05/12/18 09:40 White Blood Count 8.3 x10^3/uL (4.0-11.0) Red Blood Count 4.52 x10^6/uL (3.50-5.40) Hemoglobin 13.3 g/dL (12.0-15.5) Hematocrit 40.2 % (36.0-47.0) Mean Corpuscular Volume 89 fL (79-100) Mean Corpuscular Hemoglobin 29 pg (25-35) Mean Corpuscular Hemoglobin Concent 33 g/dL (31-37) Red Cell Distribution Width 16.8 % (11.5-14.5) H Platelet Count 238 x10^3/uL (140-400) Neutrophils (%) (Auto) 83 % (31-73) H Lymphocytes (%) (Auto) 7 % (24-48) L Monocytes (%) (Auto) 7 % (0-9) Eosinophils (%) (Auto) 2 % (0-3) Basophils (%) (Auto) 1 % (0-3) Neutrophils # (Auto) 6.9 x10^3uL (1.8-7.7) Lymphocytes # (Auto) 0.6 x10^3/uL (1.0-4.8) L Monocytes # (Auto) 0.6 x10^3/uL (0.0-1.1) Eosinophils # (Auto) 0.2 x10^3/uL (0.0-0.7) Basophils # (Auto) 0.1 x10^3/uL (0.0-0.2) Current Medications: Meds: Current Medications Ceftriaxone Sodium 1 gm/ Sodium Chloride 50 ml @ 100 mls/hr 1X ONCE IV ; Start 05/03/18 at 22:30; Stop 05/03/18 at 22:30; Status DC Ceftriaxone Sodium (Rocephin Im) 1 gm 1X ONCE IM Last administered on at 22:46; Start 05/03/18 at 22:45; Stop 05/03/18 at 23:54; Status DC Ceftriaxone Sodium (Rocephin) 1 gm STK-MED ONCE IV ; Start 05/03/18 at 22:37; Stop 05/03/18 at 22:38; Status DC Acetaminophen (Tylenol) 650 mg PRN Q6HRS PRN PO PAIN / TEMP; Start 05/03/18 at 23:15; Status Cancel Multi-Ingredient Ointment (Analgesic [place]) 1 bessy PRN QID PRN TP MUSCLE PAIN; Start 05/03/18 at 23:15 Al Hydroxide/Mg Hydroxide (Mylanta Plus Xs) 15 ml PRN AFTMEALHC PRN PO DYSPEPSIA; Start 05/03/18 at 23:15 Magnesium Hydroxide (Milk Of Magnesia) 2,400 mg PRN QHS PRN PO CONSTIPATION; Start 05/03/18 at 23:15 Citalopram Hydrobromide (CeleXA) 10 mg DAILY PO Last administered on 05/12/18at 08:51; Start 05/04/18 at 09:00 Non-Formulary Medication (Quetiapine Fumarate (Seroquel)) 25 mg PRN DAILY PRN PO AGITATION; Start 05/04/18 at 00:15; Status UNV Non-Formulary Medication (Quetiapine Fumarate (Seroquel)) 25 mg QHS PO ; Start 05/04/18 at 21:00; Status UNV Acetaminophen (Tylenol) 650 mg BID PO Last administered on 05/12/18at 19:36; Start 05/04/18 at 09:00 Acetaminophen (Tylenol) 650 mg PRN Q6HRS PRN PO PAIN; Start 05/04/18 at 00:15 Hydrocortisone (Proctosol-Hc) 1 bessy PRN BID PRN RC RECTAL PAIN; Start 05/04/18 at 00:15 Tramadol HCl (Ultram) 50 mg PRN BID PRN PO PAIN Last administered on 05/11/18at 19:28; Start 05/04/18 at 00:15 Non-Formulary Medication (Cephalexin (Keflex)) 500 mg Q6HRS PO ; Start 05/04/18 at 06:00; Status UNV Non-Formulary Medication (Methimazole (Tapazole)) 5 mg Q8HRS PO ; Start 05/04/18 at 06:00; Status UNV Non-Formulary Medication (Metoprolol Tartrate ) 50 mg BID PO ; Start 05/04/18 at 09:00; Stop 05/04/18 at 09:00; Status Cancel Non-Formulary Medication (Multivits-Min/ Fa/Lycopene/Lut (Centrum Silver Tablet) ) 1 each DAILY PO ; Start 05/04/18 at 09:00; Stop 05/04/18 at 09:00; Status DC Non-Formulary Medication (Omeprazole ) 20 mg DAILY07 PO ; Start 05/04/18 at 07:00 ; Stop 05/04/18 at 07:00; Status DC Non-Formulary Medication (Ondansetron Hcl ) 4 mg PRN TID PRN PO NAUSEA/VOMITING ; Start 05/04/18 at 00:15; Status UNV Cephalexin HCl (Keflex) 500 mg Q6HRS PO Last administered on 05/06/18at 17:55; Start 05/04/18 at 06:00; Stop 05/06/18 at 19:00; Status DC Methimazole (Tapazole) 5 mg Q8HRS PO Last administered on 05/12/18at 19:38; Start 05/04/18 at 06:00 Quetiapine Fumarate (SEROquel) 25 mg HS PO Last administered on 05/08/18at 20:45 ; Start 05/04/18 at 21:00; Stop 05/09/18 at 18:48; Status DC Quetiapine Fumarate (SEROquel) 25 mg PRN DAILY PRN PO ANXIETY / AGITATION Last administered on 05/05/18at 22:11; Start 05/04/18 at 02:30; Stop 05/06/18 at 18:40; Status DC Ondansetron HCl (Zofran Odt) 4 mg PRN TID PRN PO NAUSEA/VOMITING; Start at 02:30 Metoprolol Tartrate (Lopressor) 50 mg BID PO Last administered on 05/12/18 19: 36; Start 05/04/18 at 09:00 Multivitamins/ Calcium (Thera-M Plus) 1 tab DAILY PO Last administered on 08:52; Start 05/04/18 at 09:00 Pantoprazole Sodium (Protonix) 40 mg DAILYAC PO Last administered on 05/12/18 08:51; Start 05/04/18 at 07:30 Trazodone HCl (Desyrel) 25 mg PRN QHS PRN PO INSOMNIA, MAY REPEAT X1 Last administered on 05/05/18 22:12; Start 05/04/18 at 19:45; Stop 05/06/18 at 18:40; Status DC Mirtazapine (Remeron) 7.5 mg QHS PO Last administered on 05/07/18at 20:57; Start 05/05/18 at 21:00; Stop 05/08/18 at 11:20; Status DC Quetiapine Fumarate (SEROquel) 12.5 mg DAILY PO Last administered on 05/06/18at 11:41; Start 05/06/18 at 09:00; Stop 05/06/18 at 18:40; Status DC Quetiapine Fumarate (SEROquel) 12.5 mg 0900,1700 PO Last administered on 10:35; Start 05/07/18 at 09:00; Stop 05/07/18 at 16:38; Status DC Trazodone HCl (Desyrel) 50 mg PRN QHS PRN PO INSOMNIA, MAY REPEAT X1 Last administered on 05/08/18 23:20; Start 05/06/18 at 18:45 Trazodone HCl (Desyrel) 50 mg QHS PO Last administered on 05/12/18 19:36; Start 05/06/18 at 21:00 Olanzapine (ZyPREXA ZYDIS) 2.5 mg PRN Q2HR PRN PO PSYCHOSIS Last administered on 05/12/18 14:29; Start 05/06/18 at 18:45 Quetiapine Fumarate (SEROquel) 12.5 mg 0900,1300,1700 PO Last administered on 17:27; Start 05/07/18 at 17:00; Stop 05/09/18 at 18:48; Status DC Mirtazapine (Remeron) 15 mg QHS PO Last administered on 05/12/18 19:36; Start 05/08/18 at 21:00 Loperamide HCl (Imodium) 2 mg PRN QID PRN PO DIARRHEA Last administered on 17:23; Start 05/08/18 at 16:30 Quetiapine Fumarate (SEROquel) 25 mg 1700,2100 PO Last administered on 19:36; Start 05/09/18 at 21:00 Quetiapine Fumarate (SEROquel) 12.5 mg 0900,1300 PO Last administered on 13:52; Start 05/10/18 at 09:00; Stop 05/10/18 at 19:08; Status DC Quetiapine Fumarate (SEROquel) 12.5 mg DAILY@1300 PO Last administered on at 14:00; Start 05/11/18 at 13:00; Stop 05/12/18 at 18:28; Status DC Quetiapine Fumarate (SEROquel) 25 mg DAILY PO Last administered on 05/12/18at 08: 52; Start 05/11/18 at 09:00 Nystatin (Nystop) 1 bessy BID TP Last administered on 05/12/18at 08:52; Start at 21:00 Docusate Sodium (Colace) 100 mg BID PO Last administered on 05/12/18at 19:38; Start 05/12/18 at 21:00 Quetiapine Fumarate (SEROquel) 25 mg DAILY@1300 PO ; Start 05/13/18 at 13:00 Active Scripts Active Reported Proctosol-Hc (Hydrocortisone) 28.35 Gm Cream..g. 1 Applic RC BID Proctosol-Hc (Hydrocortisone) 28.35 Gm Cream..g. 1 Applic RC PRN BID PRN Ondansetron Hcl 4 Mg Tablet 4 Mg PO PRN TID PRN Metoprolol Tartrate 50 Mg Tablet 50 Mg PO BID Omeprazole 20 Mg Tablet.dr 20 Mg PO DAILY07 Citalopram Hbr (Citalopram Hydrobromide) 10 Mg Tablet 10 Mg PO DAILY Centrum Silver Tablet (Multivits-Min/Fa/Lycopene/Lut) 1 Each Tablet 1 Each PO DAILY Keflex (Cephalexin) 500 Mg Capsule 500 Mg PO Q6HRS Ultram (Tramadol HCl) 50 Mg Tablet 50 Mg PO BID PRN Tapazole (Methimazole) 5 Mg Tablet 5 Mg PO Q8HRS Seroquel (Quetiapine Fumarate) 25 Mg Tablet 25 Mg PO PRN DAILY PRN Seroquel (Quetiapine Fumarate) 25 Mg Tablet 25 Mg PO QHS Tylenol (Acetaminophen) 325 Mg Tablet 650 Mg PO BID Tylenol (Acetaminophen) 325 Mg Tablet 650 Mg PO PRN Q6HRS PRN I have reviewed the current psychotropics carefully including drug interactions. Risk benefit ratio favors no change other than as noted in my dictated progress note. Diagnosis: Problems: (1) Dementia due to Alzheimer's disease (2) Anxiety disorder (3) Dementia in Alzheimer's disease with delusions (4) Dementia in Alzheimer's disease with depression (5) Dementia, vascular, with delusions (6) Dementia, vascular, with depression (7) Impulse control disorder KADEN RIVAS MD May 12, 2018 20:03
--- NOTE | 2018-05-12 22:57 | PN ---
DATE: 05/11/2018 PSYCHIATRIC PROGRESS NOTE This is a late entry 05/11/2018, covers elements not covered in my initial note. SUBJECTIVE: I met with the patient in the evening. The patient slept 6 hours previous evening, remains confused, somewhat aggressive at shift change, but may be constipated, worsening her agitation. We will start Surfak 240 mg a day for this. She also has some fungal rash in the groin area, started on nystatin powder. REVIEW OF SYSTEMS: No CV, , pulmonary, eye, ENT system symptoms on review other than above. Reliability poor. MENTAL STATUS EXAM: Oriented to herself. Insight, judgment, recent and remote memory, attention, concentration, fund of knowledge poor, consistent with her diagnoses mentioned in my initial note. PLAN: Continue psychotropics from initial note. Adjust as clinically indicated. MAN Tosha RIVAS MD DR: ZAHRA/marian JOB#: [id number] / [id number]
[2018-05-12] MEDS: traMADol 50 MG TABLET PO PRN (23:30)
[2018-05-13 06:12] VITALS: BP 100/65
[2018-05-13] MEDS: DOCUSATE SODIUM 100 MG CAPSULE PO SCH ×2 (08:34→19:43)
[2018-05-13] MEDS: METOPROLOL TART IMMED RELEASE 50 MG TABLET PO SCH ×2 (08:34→19:59)
[2018-05-13] MEDS: CITALOPRAM 10 MG TABLET. PO SCH (08:34)
[2018-05-13] MEDS: PANTOPRAZOLE 40 MG TABLET. PO SCH (08:35)
[2018-05-13] MEDS: NYSTATIN TOPICAL POWDER 15GM BOTTLE. TP SCH ×2 (08:35→19:44)
[2018-05-13] MEDS: MULTIVITAMIN with MINERAL TABLET. PO SCH (08:35)
[2018-05-13] MEDS: QUEtiapine 25 MG TABLET. PO SCH ×4 (08:35→19:43)
[2018-05-13] MEDS: ACETAMINOPHEN 325 MG TABLET PO SCH ×2 (08:35→19:43)
[2018-05-13] MEDS: CIPROFLOXACIN HCL 500 MG TABLET PO SCH ×2 (11:14→19:43)
[2018-05-13] MEDS: traZODone 50 MG TABLET. PO SCH (19:43)
[2018-05-13] MEDS: MIRTAZAPINE 15 MG TABLET PO SCH (19:43)
[2018-05-13] MEDS: LACTOBACILLUS RHAMNOSUS GG 1 CAPSULE. PO SCH (19:45)
[2018-05-13] MEDS: traZODone 50 MG TABLET. PO PRN (21:25)
[2018-05-13] MEDS: traMADol 50 MG TABLET PO PRN (21:26)
--- NOTE | 2018-05-13 21:44 | PDOC ---
Exam Note: [place] Note: Please also refer to the separate dictated note~for this date of service dictated separately.~Patient seen individually. Discussed the patient with Nursing staff reviewed the chart.~Reviewed interim history and current functioning. Reviewed vital signs,~Labs/ Radiology~and current medications noted below. Continue current treatment with the changes noted in the dictated addendum note Assessment: Vital Signs: Vital Signs Date Time Temp Pulse Resp B/P (MAP) Pulse Ox O2 Delivery O2 Flow Rate FiO2 05/13/18 21:26 18 Room Air 05/13/18 16:19 84 95 05/13/18 08:34 100/65 05/13/18 06:12 97.0 I&O Intake and Output 05/13/18 07:00 Intake Total 605 ml Balance 605 ml Intake Oral 605 ml # Bowel Movements 1 Current Medications: Meds: Current Medications Ceftriaxone Sodium 1 gm/ Sodium Chloride 50 ml @ 100 mls/hr 1X ONCE IV ; Start 05/03/18 at 22:30; Stop 05/03/18 at 22:30; Status DC Ceftriaxone Sodium (Rocephin Im) 1 gm 1X ONCE IM Last administered on at 22:46; Start 05/03/18 at 22:45; Stop 05/03/18 at 23:54; Status DC Ceftriaxone Sodium (Rocephin) 1 gm STK-MED ONCE IV ; Start 05/03/18 at 22:37; Stop 05/03/18 at 22:38; Status DC Acetaminophen (Tylenol) 650 mg PRN Q6HRS PRN PO PAIN / TEMP; Start 05/03/18 at 23:15; Status Cancel Multi-Ingredient Ointment (Analgesic [place]) 1 bessy PRN QID PRN TP MUSCLE PAIN; Start 05/03/18 at 23:15 Al Hydroxide/Mg Hydroxide (Mylanta Plus Xs) 15 ml PRN AFTMEALHC PRN PO DYSPEPSIA; Start 05/03/18 at 23:15 Magnesium Hydroxide (Milk Of Magnesia) 2,400 mg PRN QHS PRN PO CONSTIPATION; Start 05/03/18 at 23:15 Citalopram Hydrobromide (CeleXA) 10 mg DAILY PO Last administered on 05/13/18at 08:34; Start 05/04/18 at 09:00 Non-Formulary Medication (Quetiapine Fumarate (Seroquel)) 25 mg PRN DAILY PRN PO AGITATION; Start 05/04/18 at 00:15; Status UNV Non-Formulary Medication (Quetiapine Fumarate (Seroquel)) 25 mg QHS PO ; Start 05/04/18 at 21:00; Status UNV Acetaminophen (Tylenol) 650 mg BID PO Last administered on 05/13/18at 19:43; Start 05/04/18 at 09:00 Acetaminophen (Tylenol) 650 mg PRN Q6HRS PRN PO PAIN; Start 05/04/18 at 00:15 Hydrocortisone (Proctosol-Hc) 1 bessy PRN BID PRN RC RECTAL PAIN; Start 05/04/18 at 00:15 Tramadol HCl (Ultram) 50 mg PRN BID PRN PO PAIN Last administered on 05/13/18at 21:26; Start 05/04/18 at 00:15 Non-Formulary Medication (Cephalexin (Keflex)) 500 mg Q6HRS PO ; Start 05/04/18 at 06:00; Status UNV Non-Formulary Medication (Methimazole (Tapazole)) 5 mg Q8HRS PO ; Start 05/04/18 at 06:00; Status UNV Non-Formulary Medication (Metoprolol Tartrate ) 50 mg BID PO ; Start 05/04/18 at 09:00; Stop 05/04/18 at 09:00; Status Cancel Non-Formulary Medication (Multivits-Min/ Fa/Lycopene/Lut (Centrum Silver Tablet) ) 1 each DAILY PO ; Start 05/04/18 at 09:00; Stop 05/04/18 at 09:00; Status DC Non-Formulary Medication (Omeprazole ) 20 mg DAILY07 PO ; Start 05/04/18 at 07:00 ; Stop 05/04/18 at 07:00; Status DC Non-Formulary Medication (Ondansetron Hcl ) 4 mg PRN TID PRN PO NAUSEA/VOMITING ; Start 05/04/18 at 00:15; Status UNV Cephalexin HCl (Keflex) 500 mg Q6HRS PO Last administered on 05/06/18at 17:55; Start 05/04/18 at 06:00; Stop 05/06/18 at 19:00; Status DC Methimazole (Tapazole) 5 mg Q8HRS PO Last administered on 05/13/18 19:46; Start 05/04/18 at 06:00 Quetiapine Fumarate (SEROquel) 25 mg HS PO Last administered on 05/08/18 20:45 ; Start 05/04/18 at 21:00; Stop 05/09/18 at 18:48; Status DC Quetiapine Fumarate (SEROquel) 25 mg PRN DAILY PRN PO ANXIETY / AGITATION Last administered on 05/05/18 22:11; Start 05/04/18 at 02:30; Stop 05/06/18 at 18:40; Status DC Ondansetron HCl (Zofran Odt) 4 mg PRN TID PRN PO NAUSEA/VOMITING; Start at 02:30 Metoprolol Tartrate (Lopressor) 50 mg BID PO Last administered on 05/13/18 08: 34; Start 05/04/18 at 09:00 Multivitamins/ Calcium (Thera-M Plus) 1 tab DAILY PO Last administered on 08:35; Start 05/04/18 at 09:00 Pantoprazole Sodium (Protonix) 40 mg DAILYAC PO Last administered on 05/13/18 08:35; Start 05/04/18 at 07:30 Trazodone HCl (Desyrel) 25 mg PRN QHS PRN PO INSOMNIA, MAY REPEAT X1 Last administered on 05/05/18 22:12; Start 05/04/18 at 19:45; Stop 05/06/18 at 18:40; Status DC Mirtazapine (Remeron) 7.5 mg QHS PO Last administered on 05/07/18 20:57; Start 05/05/18 at 21:00; Stop 05/08/18 at 11:20; Status DC Quetiapine Fumarate (SEROquel) 12.5 mg DAILY PO Last administered on 05/06/18 11:41; Start 05/06/18 at 09:00; Stop 05/06/18 at 18:40; Status DC Quetiapine Fumarate (SEROquel) 12.5 mg 0900,1700 PO Last administered on 10:35; Start 05/07/18 at 09:00; Stop 05/07/18 at 16:38; Status DC Trazodone HCl (Desyrel) 50 mg PRN QHS PRN PO INSOMNIA, MAY REPEAT X1 Last administered on 05/13/18 21:25; Start 05/06/18 at 18:45 Trazodone HCl (Desyrel) 50 mg QHS PO Last administered on 05/13/18 19:43; Start 05/06/18 at 21:00 Olanzapine (ZyPREXA ZYDIS) 2.5 mg PRN Q2HR PRN PO PSYCHOSIS Last administered on 05/13/18 19:46; Start 05/06/18 at 18:45 Quetiapine Fumarate (SEROquel) 12.5 mg 0900,1300,1700 PO Last administered on 17:27; Start 05/07/18 at 17:00; Stop 05/09/18 at 18:48; Status DC Mirtazapine (Remeron) 15 mg QHS PO Last administered on 05/13/18 19:43; Start 05/08/18 at 21:00 Loperamide HCl (Imodium) 2 mg PRN QID PRN PO DIARRHEA Last administered on 17:23; Start 05/08/18 at 16:30 Quetiapine Fumarate (SEROquel) 25 mg 1700,2100 PO Last administered on 19:43; Start 05/09/18 at 21:00 Quetiapine Fumarate (SEROquel) 12.5 mg 0900,1300 PO Last administered on at 13:52; Start 05/10/18 at 09:00; Stop 05/10/18 at 19:08; Status DC Quetiapine Fumarate (SEROquel) 12.5 mg DAILY@1300 PO Last administered on 14:00; Start 05/11/18 at 13:00; Stop 05/12/18 at 18:28; Status DC Quetiapine Fumarate (SEROquel) 25 mg DAILY PO Last administered on 05/13/18 08 :35; Start 05/11/18 at 09:00 Nystatin (Nystop) 1 bessy BID TP Last administered on 05/13/18 19:44; Start 7/8 /18 at 21:00 Docusate Sodium (Colace) 100 mg BID PO Last administered on 05/13/18at 19:43; Start 05/12/18 at 21:00 Quetiapine Fumarate (SEROquel) 25 mg DAILY@1300 PO Last administered on at 12:48; Start 05/13/18 at 13:00 Ciprofloxacin (Cipro) 500 mg BID PO Last administered on 05/13/18at 19:43; Start 05/13/18 at 10:00; Stop 05/20/18 at 09:59 Lactobacillus Rhamnosus (Culturelle) 1 cap BID PO Last administered on at 19:45; Start 05/13/18 at 21:00 Active Scripts Active Reported Proctosol-Hc (Hydrocortisone) 28.35 Gm Cream..g. 1 Applic RC BID Proctosol-Hc (Hydrocortisone) 28.35 Gm Cream..g. 1 Applic RC PRN BID PRN Ondansetron Hcl 4 Mg Tablet 4 Mg PO PRN TID PRN Metoprolol Tartrate 50 Mg Tablet 50 Mg PO BID Omeprazole 20 Mg Tablet.dr 20 Mg PO DAILY07 Citalopram Hbr (Citalopram Hydrobromide) 10 Mg Tablet 10 Mg PO DAILY Centrum Silver Tablet (Multivits-Min/Fa/Lycopene/Lut) 1 Each Tablet 1 Each PO DAILY Keflex (Cephalexin) 500 Mg Capsule 500 Mg PO Q6HRS Ultram (Tramadol HCl) 50 Mg Tablet 50 Mg PO BID PRN Tapazole (Methimazole) 5 Mg Tablet 5 Mg PO Q8HRS Seroquel (Quetiapine Fumarate) 25 Mg Tablet 25 Mg PO PRN DAILY PRN Seroquel (Quetiapine Fumarate) 25 Mg Tablet 25 Mg PO QHS Tylenol (Acetaminophen) 325 Mg Tablet 650 Mg PO BID Tylenol (Acetaminophen) 325 Mg Tablet 650 Mg PO PRN Q6HRS PRN I have reviewed the current psychotropics carefully including drug interactions. Risk benefit ratio favors no change other than as noted in my dictated progress note. Diagnosis: Problems: (1) Dementia due to Alzheimer's disease (2) Anxiety disorder (3) Dementia in Alzheimer's disease with delusions (4) Dementia in Alzheimer's disease with depression (5) Dementia, vascular, with delusions (6) Dementia, vascular, with depression (7) Impulse control disorder KADEN RIVAS MD May 13, 2018 21:44
--- NOTE | 2018-05-14 01:24 | PN ---
DATE: 05/12/2018 This is a late entry for 05/12/2018 and covers the elements not covered in my initial note of 05/12/2018. SUBJECTIVE: I met with the patient in the evening. The patient slept 5-1/2 hours previous evening, remains confused, anxious, restless, but redirectable. REVIEW OF SYSTEMS: No CV, , pulmonary, eye, ENT system symptoms on review. Reliability poor. MENTAL STATUS EXAM: Oriented to herself. Insight, judgment, recent and remote memory, attention, concentration, fund of knowledge poor, consistent with her diagnosis mentioned in my initial note. IMPRESSION: Major neurocognitive disorder, Alzheimer, vascular with delusion, depression, behavioral disturbance. Rest unchanged. PLAN: Increase 1300 Seroquel from 12.5 mg to 25 mg, start Zyprexa p.r.n. and she received a dosage at 2:50 p.m. Continue rest unchanged for now including Celexa, trazodone, Remeron. KADEN RIVAS MD DR: ZAHRA/marian JOB#: [id number] / [id number]
[2018-05-14] MEDS: LACTOBACILLUS RHAMNOSUS GG 1 CAPSULE. PO SCH ×2 (08:57→19:21)
[2018-05-14] MEDS: CIPROFLOXACIN HCL 500 MG TABLET PO SCH ×2 (08:57→19:21)
[2018-05-14] MEDS: DOCUSATE SODIUM 100 MG CAPSULE PO SCH ×2 (08:57→19:21)
[2018-05-14] MEDS: PANTOPRAZOLE 40 MG TABLET. PO SCH (08:57)
[2018-05-14] MEDS: CITALOPRAM 10 MG TABLET. PO SCH (08:57)
[2018-05-14] MEDS: METOPROLOL TART IMMED RELEASE 50 MG TABLET PO SCH ×2 (08:57→19:22)
[2018-05-14] MEDS: MULTIVITAMIN with MINERAL TABLET. PO SCH (08:58)
[2018-05-14] MEDS: ACETAMINOPHEN 325 MG TABLET PO SCH ×2 (08:58→19:21)
[2018-05-14] MEDS: QUEtiapine 25 MG TABLET. PO SCH ×4 (08:58→19:21)
[2018-05-14] MEDS: NYSTATIN TOPICAL POWDER 15GM BOTTLE. TP SCH ×2 (09:00→19:23)
[2018-05-14 16:08] VITALS: BP 99/62
[2018-05-14] MEDS: MIRTAZAPINE 15 MG TABLET PO SCH (19:21)
[2018-05-14] MEDS: traZODone 50 MG TABLET. PO SCH (19:22)
--- NOTE | 2018-05-14 20:56 | PDOC ---
Exam Note: [place] Note: Please also refer to the separate dictated note~for this date of service dictated separately.~Patient seen individually. Discussed the patient with Nursing staff reviewed the chart.~Reviewed interim history and current functioning. Reviewed vital signs,~Labs/ Radiology~and current medications noted below. Continue current treatment with the changes noted in the dictated addendum note Assessment: Vital Signs: Vital Signs Date Time Temp Pulse Resp B/P (MAP) Pulse Ox O2 Delivery O2 Flow Rate FiO2 05/14/18 19:22 63 99/62 05/14/18 16:08 97.4 20 95 05/13/18 22:30 Room Air I&O Intake and Output 05/14/18 06:59 Intake Total 1160 ml Balance 1160 ml Intake Oral 1160 ml Current Medications: Meds: Current Medications Ceftriaxone Sodium 1 gm/ Sodium Chloride 50 ml @ 100 mls/hr 1X ONCE IV ; Start 05/03/18 at 22:30; Stop 05/03/18 at 22:30; Status DC Ceftriaxone Sodium (Rocephin Im) 1 gm 1X ONCE IM Last administered on at 22:46; Start 05/03/18 at 22:45; Stop 05/03/18 at 23:54; Status DC Ceftriaxone Sodium (Rocephin) 1 gm STK-MED ONCE IV ; Start 05/03/18 at 22:37; Stop 05/03/18 at 22:38; Status DC Acetaminophen (Tylenol) 650 mg PRN Q6HRS PRN PO PAIN / TEMP; Start 05/03/18 at 23:15; Status Cancel Multi-Ingredient Ointment (Analgesic [place]) 1 bessy PRN QID PRN TP MUSCLE PAIN; Start 05/03/18 at 23:15 Al Hydroxide/Mg Hydroxide (Mylanta Plus Xs) 15 ml PRN AFTMEALHC PRN PO DYSPEPSIA; Start 05/03/18 at 23:15 Magnesium Hydroxide (Milk Of Magnesia) 2,400 mg PRN QHS PRN PO CONSTIPATION; Start 05/03/18 at 23:15 Citalopram Hydrobromide (CeleXA) 10 mg DAILY PO Last administered on 05/14/18at 08:57; Start 05/04/18 at 09:00 Non-Formulary Medication (Quetiapine Fumarate (Seroquel)) 25 mg PRN DAILY PRN PO AGITATION; Start 05/04/18 at 00:15; Status UNV Non-Formulary Medication (Quetiapine Fumarate (Seroquel)) 25 mg QHS PO ; Start 05/04/18 at 21:00; Status UNV Acetaminophen (Tylenol) 650 mg BID PO Last administered on 05/14/18at 19:21; Start 05/04/18 at 09:00 Acetaminophen (Tylenol) 650 mg PRN Q6HRS PRN PO PAIN; Start 05/04/18 at 00:15 Hydrocortisone (Proctosol-Hc) 1 bessy PRN BID PRN RC RECTAL PAIN; Start 05/04/18 at 00:15 Tramadol HCl (Ultram) 50 mg PRN BID PRN PO PAIN Last administered on 05/13/18at 21:26; Start 05/04/18 at 00:15 Non-Formulary Medication (Cephalexin (Keflex)) 500 mg Q6HRS PO ; Start 05/04/18 at 06:00; Status UNV Non-Formulary Medication (Methimazole (Tapazole)) 5 mg Q8HRS PO ; Start 05/04/18 at 06:00; Status UNV Non-Formulary Medication (Metoprolol Tartrate ) 50 mg BID PO ; Start 05/04/18 at 09:00; Stop 05/04/18 at 09:00; Status Cancel Non-Formulary Medication (Multivits-Min/ Fa/Lycopene/Lut (Centrum Silver Tablet) ) 1 each DAILY PO ; Start 05/04/18 at 09:00; Stop 05/04/18 at 09:00; Status DC Non-Formulary Medication (Omeprazole ) 20 mg DAILY07 PO ; Start 05/04/18 at 07:00 ; Stop 05/04/18 at 07:00; Status DC Non-Formulary Medication (Ondansetron Hcl ) 4 mg PRN TID PRN PO NAUSEA/VOMITING ; Start 05/04/18 at 00:15; Status UNV Cephalexin HCl (Keflex) 500 mg Q6HRS PO Last administered on 05/06/18at 17:55; Start 05/04/18 at 06:00; Stop 05/06/18 at 19:00; Status DC Methimazole (Tapazole) 5 mg Q8HRS PO Last administered on 05/14/18 19:23; Start 05/04/18 at 06:00 Quetiapine Fumarate (SEROquel) 25 mg HS PO Last administered on 05/08/18at 20:45 ; Start 05/04/18 at 21:00; Stop 05/09/18 at 18:48; Status DC Quetiapine Fumarate (SEROquel) 25 mg PRN DAILY PRN PO ANXIETY / AGITATION Last administered on 05/05/18 22:11; Start 05/04/18 at 02:30; Stop 05/06/18 at 18:40; Status DC Ondansetron HCl (Zofran Odt) 4 mg PRN TID PRN PO NAUSEA/VOMITING; Start at 02:30 Metoprolol Tartrate (Lopressor) 50 mg BID PO Last administered on 05/14/18 08: 57; Start 05/04/18 at 09:00 Multivitamins/ Calcium (Thera-M Plus) 1 tab DAILY PO Last administered on at 08:58; Start 05/04/18 at 09:00 Pantoprazole Sodium (Protonix) 40 mg DAILYAC PO Last administered on 05/14/18 08:57; Start 05/04/18 at 07:30 Trazodone HCl (Desyrel) 25 mg PRN QHS PRN PO INSOMNIA, MAY REPEAT X1 Last administered on 05/05/18at 22:12; Start 05/04/18 at 19:45; Stop 05/06/18 at 18:40; Status DC Mirtazapine (Remeron) 7.5 mg QHS PO Last administered on 05/07/18 20:57; Start 05/05/18 at 21:00; Stop 05/08/18 at 11:20; Status DC Quetiapine Fumarate (SEROquel) 12.5 mg DAILY PO Last administered on 05/06/18at 11:41; Start 05/06/18 at 09:00; Stop 05/06/18 at 18:40; Status DC Quetiapine Fumarate (SEROquel) 12.5 mg 0900,1700 PO Last administered on at 10:35; Start 05/07/18 at 09:00; Stop 05/07/18 at 16:38; Status DC Trazodone HCl (Desyrel) 50 mg PRN QHS PRN PO INSOMNIA, MAY REPEAT X1 Last administered on 05/13/18 21:25; Start 05/06/18 at 18:45 Trazodone HCl (Desyrel) 50 mg QHS PO Last administered on 05/14/18 19:22; Start 05/06/18 at 21:00 Olanzapine (ZyPREXA ZYDIS) 2.5 mg PRN Q2HR PRN PO PSYCHOSIS Last administered on 05/13/18 19:46; Start 05/06/18 at 18:45 Quetiapine Fumarate (SEROquel) 12.5 mg 0900,1300,1700 PO Last administered on 17:27; Start 05/07/18 at 17:00; Stop 05/09/18 at 18:48; Status DC Mirtazapine (Remeron) 15 mg QHS PO Last administered on 05/14/18 19:21; Start 05/08/18 at 21:00 Loperamide HCl (Imodium) 2 mg PRN QID PRN PO DIARRHEA Last administered on 17:23; Start 05/08/18 at 16:30 Quetiapine Fumarate (SEROquel) 25 mg 1700,2100 PO Last administered on 19:21; Start 05/09/18 at 21:00 Quetiapine Fumarate (SEROquel) 12.5 mg 0900,1300 PO Last administered on at 13:52; Start 05/10/18 at 09:00; Stop 05/10/18 at 19:08; Status DC Quetiapine Fumarate (SEROquel) 12.5 mg DAILY@1300 PO Last administered on 14:00; Start 05/11/18 at 13:00; Stop 05/12/18 at 18:28; Status DC Quetiapine Fumarate (SEROquel) 25 mg DAILY PO Last administered on 05/14/18at 08 :58; Start 05/11/18 at 09:00 Nystatin (Nystop) 1 bessy BID TP Last administered on 05/14/18 19:23; Start 05/11 at 21:00 Docusate Sodium (Colace) 100 mg BID PO Last administered on 05/14/18at 19:21; Start 05/12/18 at 21:00 Quetiapine Fumarate (SEROquel) 25 mg DAILY@1300 PO Last administered on at 13:43; Start 05/13/18 at 13:00; Stop 05/14/18 at 19:23; Status DC Ciprofloxacin (Cipro) 500 mg BID PO Last administered on 05/14/18at 19:21; Start 05/13/18 at 10:00; Stop 05/20/18 at 09:59 Lactobacillus Rhamnosus (Culturelle) 1 cap BID PO Last administered on at 19:21; Start 05/13/18 at 21:00 Quetiapine Fumarate (SEROquel) 25 mg DAILY PO ; Start 05/15/18 at 09:00 Active Scripts Active Reported Proctosol-Hc (Hydrocortisone) 28.35 Gm Cream..g. 1 Applic RC BID Proctosol-Hc (Hydrocortisone) 28.35 Gm Cream..g. 1 Applic RC PRN BID PRN Ondansetron Hcl 4 Mg Tablet 4 Mg PO PRN TID PRN Metoprolol Tartrate 50 Mg Tablet 50 Mg PO BID Omeprazole 20 Mg Tablet.dr 20 Mg PO DAILY07 Citalopram Hbr (Citalopram Hydrobromide) 10 Mg Tablet 10 Mg PO DAILY Centrum Silver Tablet (Multivits-Min/Fa/Lycopene/Lut) 1 Each Tablet 1 Each PO DAILY Keflex (Cephalexin) 500 Mg Capsule 500 Mg PO Q6HRS Ultram (Tramadol HCl) 50 Mg Tablet 50 Mg PO BID PRN Tapazole (Methimazole) 5 Mg Tablet 5 Mg PO Q8HRS Seroquel (Quetiapine Fumarate) 25 Mg Tablet 25 Mg PO PRN DAILY PRN Seroquel (Quetiapine Fumarate) 25 Mg Tablet 25 Mg PO QHS Tylenol (Acetaminophen) 325 Mg Tablet 650 Mg PO BID Tylenol (Acetaminophen) 325 Mg Tablet 650 Mg PO PRN Q6HRS PRN I have reviewed the current psychotropics carefully including drug interactions. Risk benefit ratio favors no change other than as noted in my dictated progress note. 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
--- NOTE | 2018-05-14 22:04 | PN ---
DATE: 05/13/2018 PSYCHIATRIC PROGRESS NOTE This is a late entry for 05/13/2018, covers elements not covered in my initial note. SUBJECTIVE: I met with the patient in the evening. The patient slept 4-1/2 hours previous evening. She has been anxious, confused, but more redirectable. She does have an UTI and is on Cipro 500 mg b.i.d. x 7 days. She gets agitated at times, but her bottom is better with the rash and agitation consequently is better. REVIEW OF SYSTEMS: No CV, , pulmonary, eye, ENT system symptoms on review. Does have complaints of discomfort in her bottom area as above. MENTAL STATUS EXAM: Oriented to herself. Insight, judgment, recent and remote memory, attention, concentration, fund of knowledge poor, consistent with her diagnosis mentioned in my initial note. PLAN: Continue current psychotropics. Treat the UTI. Adjust further as clinically indicated. KADEN RIVAS MD DR: ZAHRA/marian JOB#: [id number] / [id number]
[2018-05-15 06:27] VITALS: BP 105/64
[2018-05-15] MEDS: NYSTATIN TOPICAL POWDER 15GM BOTTLE. TP SCH ×2 (08:58→20:29)
[2018-05-15] MEDS ORDERED: QUEtiapine 25 MG TABLET. PO SCH (09:00)
[2018-05-15] MEDS: DOCUSATE SODIUM 100 MG CAPSULE PO SCH ×2 (09:02→20:23)
[2018-05-15] MEDS: PANTOPRAZOLE 40 MG TABLET. PO SCH (09:02)
[2018-05-15] MEDS: CIPROFLOXACIN HCL 500 MG TABLET PO SCH ×2 (09:02→20:24)
[2018-05-15] MEDS: LACTOBACILLUS RHAMNOSUS GG 1 CAPSULE. PO SCH ×2 (09:02→20:23)
[2018-05-15] MEDS: CITALOPRAM 10 MG TABLET. PO SCH (09:02)
[2018-05-15] MEDS: QUEtiapine 25 MG TABLET. PO SCH ×3 (09:03→20:24)
[2018-05-15] MEDS: METOPROLOL TART IMMED RELEASE 50 MG TABLET PO SCH ×2 (09:03→20:29)
[2018-05-15] MEDS: MULTIVITAMIN with MINERAL TABLET. PO SCH (09:03)
[2018-05-15] MEDS: ACETAMINOPHEN 325 MG TABLET PO SCH ×2 (09:04→20:23)
[2018-05-15] MEDS ORDERED: NEOMY/BACITR/POLYMYXIN OINT PACKET. TP ONE (10:15)
[2018-05-15] MEDS: LOPERAMIDE 2 MG CAPSULE PO PRN (13:41)
[2018-05-15] MEDS ORDERED: FLUCONAZOLE 100 MG TABLET. PO ONE (16:00)
[2018-05-15] MEDS: MIRTAZAPINE 15 MG TABLET PO SCH (20:23)
[2018-05-15] MEDS: traZODone 50 MG TABLET. PO SCH (20:24)
--- NOTE | 2018-05-15 20:54 | PDOC ---
Exam Note: [place] Note: Please also refer to the separate dictated note~for this date of service dictated separately.~Patient seen individually. Discussed the patient with Nursing staff reviewed the chart.~Reviewed interim history and current functioning. Reviewed vital signs,~Labs/ Radiology~and current medications noted below. Continue current treatment with the changes noted in the dictated addendum note Assessment: Vital Signs: Vital Signs Date Time Temp Pulse Resp B/P (MAP) Pulse Ox O2 Delivery O2 Flow Rate FiO2 05/15/18 20:29 83 120/62 05/15/18 06:27 97.4 15 94 05/13/18 22:30 Room Air I&O Intake and Output 05/15/18 07:00 Intake Total 360 ml Balance 360 ml Intake Oral 360 ml # Bowel Movements 1 Current Medications: Meds: Current Medications Ceftriaxone Sodium 1 gm/ Sodium Chloride 50 ml @ 100 mls/hr 1X ONCE IV ; Start 05/03/18 at 22:30; Stop 05/03/18 at 22:30; Status DC Ceftriaxone Sodium (Rocephin Im) 1 gm 1X ONCE IM Last administered on at 22:46; Start 05/03/18 at 22:45; Stop 05/03/18 at 23:54; Status DC Ceftriaxone Sodium (Rocephin) 1 gm STK-MED ONCE IV ; Start 05/03/18 at 22:37; Stop 05/03/18 at 22:38; Status DC Acetaminophen (Tylenol) 650 mg PRN Q6HRS PRN PO PAIN / TEMP; Start 05/03/18 at 23:15; Status Cancel Multi-Ingredient Ointment (Analgesic [place]) 1 bessy PRN QID PRN TP MUSCLE PAIN; Start 05/03/18 at 23:15 Al Hydroxide/Mg Hydroxide (Mylanta Plus Xs) 15 ml PRN AFTMEALHC PRN PO DYSPEPSIA; Start 05/03/18 at 23:15 Magnesium Hydroxide (Milk Of Magnesia) 2,400 mg PRN QHS PRN PO CONSTIPATION; Start 05/03/18 at 23:15 Citalopram Hydrobromide (CeleXA) 10 mg DAILY PO Last administered on 05/15/18at 09:02; Start 05/04/18 at 09:00 Non-Formulary Medication (Quetiapine Fumarate (Seroquel)) 25 mg PRN DAILY PRN PO AGITATION; Start 05/04/18 at 00:15; Status UNV Non-Formulary Medication (Quetiapine Fumarate (Seroquel)) 25 mg QHS PO ; Start 05/04/18 at 21:00; Status UNV Acetaminophen (Tylenol) 650 mg BID PO Last administered on 05/15/18at 20:23; Start 05/04/18 at 09:00 Acetaminophen (Tylenol) 650 mg PRN Q6HRS PRN PO PAIN; Start 05/04/18 at 00:15 Hydrocortisone (Proctosol-Hc) 1 bessy PRN BID PRN RC RECTAL PAIN; Start 05/04/18 at 00:15 Tramadol HCl (Ultram) 50 mg PRN BID PRN PO PAIN Last administered on 05/13/18at 21:26; Start 05/04/18 at 00:15 Non-Formulary Medication (Cephalexin (Keflex)) 500 mg Q6HRS PO ; Start 05/04/18 at 06:00; Status UNV Non-Formulary Medication (Methimazole (Tapazole)) 5 mg Q8HRS PO ; Start 05/04/18 at 06:00; Status UNV Non-Formulary Medication (Metoprolol Tartrate ) 50 mg BID PO ; Start 05/04/18 at 09:00; Stop 05/04/18 at 09:00; Status Cancel Non-Formulary Medication (Multivits-Min/ Fa/Lycopene/Lut (Centrum Silver Tablet) ) 1 each DAILY PO ; Start 05/04/18 at 09:00; Stop 05/04/18 at 09:00; Status DC Non-Formulary Medication (Omeprazole ) 20 mg DAILY07 PO ; Start 05/04/18 at 07:00 ; Stop 05/04/18 at 07:00; Status DC Non-Formulary Medication (Ondansetron Hcl ) 4 mg PRN TID PRN PO NAUSEA/VOMITING ; Start 05/04/18 at 00:15; Status UNV Cephalexin HCl (Keflex) 500 mg Q6HRS PO Last administered on 05/06/18at 17:55; Start 05/04/18 at 06:00; Stop 05/06/18 at 19:00; Status DC Methimazole (Tapazole) 5 mg Q8HRS PO Last administered on 05/15/18 20:29; Start 05/04/18 at 06:00 Quetiapine Fumarate (SEROquel) 25 mg HS PO Last administered on 05/08/18 20:45 ; Start 05/04/18 at 21:00; Stop 05/09/18 at 18:48; Status DC Quetiapine Fumarate (SEROquel) 25 mg PRN DAILY PRN PO ANXIETY / AGITATION Last administered on 05/05/18 22:11; Start 05/04/18 at 02:30; Stop 05/06/18 at 18:40; Status DC Ondansetron HCl (Zofran Odt) 4 mg PRN TID PRN PO NAUSEA/VOMITING; Start at 02:30 Metoprolol Tartrate (Lopressor) 50 mg BID PO Last administered on 05/15/18 20: 29; Start 05/04/18 at 09:00 Multivitamins/ Calcium (Thera-M Plus) 1 tab DAILY PO Last administered on 09:03; Start 05/04/18 at 09:00 Pantoprazole Sodium (Protonix) 40 mg DAILYAC PO Last administered on 05/15/18 09:02; Start 05/04/18 at 07:30 Trazodone HCl (Desyrel) 25 mg PRN QHS PRN PO INSOMNIA, MAY REPEAT X1 Last administered on 05/05/18 22:12; Start 05/04/18 at 19:45; Stop 05/06/18 at 18:40; Status DC Mirtazapine (Remeron) 7.5 mg QHS PO Last administered on 05/07/18 20:57; Start 05/05/18 at 21:00; Stop 05/08/18 at 11:20; Status DC Quetiapine Fumarate (SEROquel) 12.5 mg DAILY PO Last administered on 05/06/18 11:41; Start 05/06/18 at 09:00; Stop 05/06/18 at 18:40; Status DC Quetiapine Fumarate (SEROquel) 12.5 mg 0900,1700 PO Last administered on 10:35; Start 05/07/18 at 09:00; Stop 05/07/18 at 16:38; Status DC Trazodone HCl (Desyrel) 50 mg PRN QHS PRN PO INSOMNIA, MAY REPEAT X1 Last administered on 05/13/18 21:25; Start 05/06/18 at 18:45 Trazodone HCl (Desyrel) 50 mg QHS PO Last administered on 05/15/18 20:24; Start 05/06/18 at 21:00 Olanzapine (ZyPREXA ZYDIS) 2.5 mg PRN Q2HR PRN PO PSYCHOSIS Last administered on 05/13/18 19:46; Start 05/06/18 at 18:45 Quetiapine Fumarate (SEROquel) 12.5 mg 0900,1300,1700 PO Last administered on 17:27; Start 05/07/18 at 17:00; Stop 05/09/18 at 18:48; Status DC Mirtazapine (Remeron) 15 mg QHS PO Last administered on 05/15/18 20:23; Start 05/08/18 at 21:00 Loperamide HCl (Imodium) 2 mg PRN QID PRN PO DIARRHEA Last administered on 05/15 13:41; Start 05/08/18 at 16:30 Quetiapine Fumarate (SEROquel) 25 mg 1700,2100 PO Last administered on 20:24; Start 05/09/18 at 21:00 Quetiapine Fumarate (SEROquel) 12.5 mg 0900,1300 PO Last administered on 13:52; Start 05/10/18 at 09:00; Stop 05/10/18 at 19:08; Status DC Quetiapine Fumarate (SEROquel) 12.5 mg DAILY@1300 PO Last administered on 14:00; Start 05/11/18 at 13:00; Stop 05/12/18 at 18:28; Status DC Quetiapine Fumarate (SEROquel) 25 mg DAILY PO Last administered on 05/15/18 09 :03; Start 05/11/18 at 09:00 Nystatin (Nystop) 1 bessy BID TP Last administered on 05/15/18 20:29; Start 05/11 at 21:00 Docusate Sodium (Colace) 100 mg BID PO Last administered on 05/15/18at 09:02; Start 05/12/18 at 21:00 Quetiapine Fumarate (SEROquel) 25 mg DAILY@1300 PO Last administered on at 13:43; Start 05/13/18 at 13:00; Stop 05/14/18 at 19:23; Status DC Ciprofloxacin (Cipro) 500 mg BID PO Last administered on 05/15/18at 20:24; Start 05/13/18 at 10:00; Stop 05/20/18 at 09:59 Lactobacillus Rhamnosus (Culturelle) 1 cap BID PO Last administered on at 20:23; Start 05/13/18 at 21:00 Quetiapine Fumarate (SEROquel) 25 mg DAILY PO ; Start 05/15/18 at 09:00; Status Cancel Neomycin/ Polymyxin/ Bacitracin (Triple Antibiotic Ointment) 1 pkt 1X ONCE TP Last administered on 05/15/18at 10:15; Start 05/15/18 at 10:15; Stop 05/15/18 at 10:16; Status DC Fluconazole (Diflucan) 100 mg 1X ONCE PO Last administered on 05/15/18at 16:25 ; Start 05/15/18 at 16:00; Stop 05/15/18 at 16:12; Status DC Active Scripts Active Reported Proctosol-Hc (Hydrocortisone) 28.35 Gm Cream..g. 1 Applic RC BID Proctosol-Hc (Hydrocortisone) 28.35 Gm Cream..g. 1 Applic RC PRN BID PRN Ondansetron Hcl 4 Mg Tablet 4 Mg PO PRN TID PRN Metoprolol Tartrate 50 Mg Tablet 50 Mg PO BID Omeprazole 20 Mg Tablet.dr 20 Mg PO DAILY07 Citalopram Hbr (Citalopram Hydrobromide) 10 Mg Tablet 10 Mg PO DAILY Centrum Silver Tablet (Multivits-Min/Fa/Lycopene/Lut) 1 Each Tablet 1 Each PO DAILY Keflex (Cephalexin) 500 Mg Capsule 500 Mg PO Q6HRS Ultram (Tramadol HCl) 50 Mg Tablet 50 Mg PO BID PRN Tapazole (Methimazole) 5 Mg Tablet 5 Mg PO Q8HRS Seroquel (Quetiapine Fumarate) 25 Mg Tablet 25 Mg PO PRN DAILY PRN Seroquel (Quetiapine Fumarate) 25 Mg Tablet 25 Mg PO QHS Tylenol (Acetaminophen) 325 Mg Tablet 650 Mg PO BID Tylenol (Acetaminophen) 325 Mg Tablet 650 Mg PO PRN Q6HRS PRN I have reviewed the current psychotropics carefully including drug interactions. Risk benefit ratio favors no change other than as noted in my dictated progress note. 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
[2018-05-16 06:16] VITALS: BP 103/52
[2018-05-16] MEDS: PANTOPRAZOLE 40 MG TABLET. PO SCH (08:09)
[2018-05-16] MEDS: CITALOPRAM 10 MG TABLET. PO SCH (08:09)
[2018-05-16] MEDS: CIPROFLOXACIN HCL 500 MG TABLET PO SCH ×2 (08:09→20:24)
[2018-05-16] MEDS: LACTOBACILLUS RHAMNOSUS GG 1 CAPSULE. PO SCH ×2 (08:10→20:23)
[2018-05-16] MEDS: METOPROLOL TART IMMED RELEASE 50 MG TABLET PO SCH ×2 (08:10→20:25)
[2018-05-16] MEDS: DOCUSATE SODIUM 100 MG CAPSULE PO SCH ×2 (08:10→20:23)
[2018-05-16] MEDS: ACETAMINOPHEN 325 MG TABLET PO SCH ×2 (08:11→20:24)
[2018-05-16] MEDS: NYSTATIN TOPICAL POWDER 15GM BOTTLE. TP SCH ×2 (08:11→20:24)
[2018-05-16] MEDS: QUEtiapine 25 MG TABLET. PO SCH ×3 (08:11→20:23)
[2018-05-16] MEDS: MULTIVITAMIN with MINERAL TABLET. PO SCH (08:11)
[2018-05-16] MEDS: LOPERAMIDE 2 MG CAPSULE PO PRN ×2 (09:15→16:17)
[2018-05-16 16:46] VITALS: BP 112/72
[2018-05-16] MEDS: MIRTAZAPINE 15 MG TABLET PO SCH (20:23)
[2018-05-16] MEDS: traZODone 50 MG TABLET. PO SCH (20:24)
--- NOTE | 2018-05-16 22:52 | PN ---
DATE: 05/14/2018 This is a late entry for 05/14/2018 and covers the elements not covered in my initial note. SUBJECTIVE: I met with the patient in the evening. The patient slept 5-3/4 hours previous evening, gets agitated when [place] area is cleaned. Overall, she is more appropriate. No active hallucinations noted. Compliant with medications, though she refused metoprolol the previous night. REVIEW OF SYSTEM: No CV, , pulmonary, eye, ENT system symptoms on review. Reliability poor. MENTAL STATUS EXAM: Oriented to herself. Insight, judgment, recent and remote memory, attention, concentration, fund of knowledge poor, consistent with her diagnosis mentioned in my initial note. PLAN: Increase 1:00 p.m. Seroquel to 25 mg. Continue rest unchanged per initial note. MAN Tosha RIVAS MD DR: ZAHRA/marian JOB#: [id number] / [id number]
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
--- NOTE | 2018-05-16 23:08 | PDOC ---
Exam Note: [place] Note: Please also refer to the separate dictated note~for this date of service dictated separately.~Patient seen individually. Discussed the patient with Nursing staff reviewed the chart.~Reviewed interim history and current functioning. Reviewed vital signs,~Labs/ Radiology~and current medications noted below. Continue current treatment with the changes noted in the dictated addendum note Assessment: Vital Signs: Vital Signs Date Time Temp Pulse Resp B/P (MAP) Pulse Ox O2 Delivery O2 Flow Rate FiO2 05/16/18 20:25 67 112/72 05/16/18 16:46 98.1 20 95 05/13/18 22:30 Room Air I&O Intake and Output 05/16/18 07:00 Intake Total 720 ml Balance 720 ml Intake Oral 720 ml # Bowel Movements 1 Current Medications: Meds: Current Medications Ceftriaxone Sodium 1 gm/ Sodium Chloride 50 ml @ 100 mls/hr 1X ONCE IV ; Start 05/03/18 at 22:30; Stop 05/03/18 at 22:30; Status DC Ceftriaxone Sodium (Rocephin Im) 1 gm 1X ONCE IM Last administered on at 22:46; Start 05/03/18 at 22:45; Stop 05/03/18 at 23:54; Status DC Ceftriaxone Sodium (Rocephin) 1 gm STK-MED ONCE IV ; Start 05/03/18 at 22:37; Stop 05/03/18 at 22:38; Status DC Acetaminophen (Tylenol) 650 mg PRN Q6HRS PRN PO PAIN / TEMP; Start 05/03/18 at 23:15; Status Cancel Multi-Ingredient Ointment (Analgesic [place]) 1 bessy PRN QID PRN TP MUSCLE PAIN; Start 05/03/18 at 23:15 Al Hydroxide/Mg Hydroxide (Mylanta Plus Xs) 15 ml PRN AFTMEALHC PRN PO DYSPEPSIA; Start 05/03/18 at 23:15 Magnesium Hydroxide (Milk Of Magnesia) 2,400 mg PRN QHS PRN PO CONSTIPATION; Start 05/03/18 at 23:15 Citalopram Hydrobromide (CeleXA) 10 mg DAILY PO Last administered on 05/16/18at 08:09; Start 05/04/18 at 09:00 Non-Formulary Medication (Quetiapine Fumarate (Seroquel)) 25 mg PRN DAILY PRN PO AGITATION; Start 05/04/18 at 00:15; Status UNV Non-Formulary Medication (Quetiapine Fumarate (Seroquel)) 25 mg QHS PO ; Start 05/04/18 at 21:00; Status UNV Acetaminophen (Tylenol) 650 mg BID PO Last administered on 05/16/18at 20:24; Start 05/04/18 at 09:00 Acetaminophen (Tylenol) 650 mg PRN Q6HRS PRN PO PAIN; Start 05/04/18 at 00:15 Hydrocortisone (Proctosol-Hc) 1 bessy PRN BID PRN RC RECTAL PAIN; Start 05/04/18 at 00:15 Tramadol HCl (Ultram) 50 mg PRN BID PRN PO PAIN Last administered on 05/13/18at 21:26; Start 05/04/18 at 00:15 Non-Formulary Medication (Cephalexin (Keflex)) 500 mg Q6HRS PO ; Start 05/04/18 at 06:00; Status UNV Non-Formulary Medication (Methimazole (Tapazole)) 5 mg Q8HRS PO ; Start 05/04/18 at 06:00; Status UNV Non-Formulary Medication (Metoprolol Tartrate ) 50 mg BID PO ; Start 05/04/18 at 09:00; Stop 05/04/18 at 09:00; Status Cancel Non-Formulary Medication (Multivits-Min/ Fa/Lycopene/Lut (Centrum Silver Tablet) ) 1 each DAILY PO ; Start 05/04/18 at 09:00; Stop 05/04/18 at 09:00; Status DC Non-Formulary Medication (Omeprazole ) 20 mg DAILY07 PO ; Start 05/04/18 at 07:00 ; Stop 05/04/18 at 07:00; Status DC Non-Formulary Medication (Ondansetron Hcl ) 4 mg PRN TID PRN PO NAUSEA/VOMITING ; Start 05/04/18 at 00:15; Status UNV Cephalexin HCl (Keflex) 500 mg Q6HRS PO Last administered on 05/06/18at 17:55; Start 05/04/18 at 06:00; Stop 05/06/18 at 19:00; Status DC Methimazole (Tapazole) 5 mg Q8HRS PO Last administered on 05/16/18 20:24; Start 05/04/18 at 06:00 Quetiapine Fumarate (SEROquel) 25 mg HS PO Last administered on 05/08/18 20:45 ; Start 05/04/18 at 21:00; Stop 05/09/18 at 18:48; Status DC Quetiapine Fumarate (SEROquel) 25 mg PRN DAILY PRN PO ANXIETY / AGITATION Last administered on 05/05/18 22:11; Start 05/04/18 at 02:30; Stop 05/06/18 at 18:40; Status DC Ondansetron HCl (Zofran Odt) 4 mg PRN TID PRN PO NAUSEA/VOMITING; Start at 02:30 Metoprolol Tartrate (Lopressor) 50 mg BID PO Last administered on 05/16/18 20: 25; Start 05/04/18 at 09:00 Multivitamins/ Calcium (Thera-M Plus) 1 tab DAILY PO Last administered on 08:11; Start 05/04/18 at 09:00 Pantoprazole Sodium (Protonix) 40 mg DAILYAC PO Last administered on 05/16/18 08:09; Start 05/04/18 at 07:30 Trazodone HCl (Desyrel) 25 mg PRN QHS PRN PO INSOMNIA, MAY REPEAT X1 Last administered on 05/05/18 22:12; Start 05/04/18 at 19:45; Stop 05/06/18 at 18:40; Status DC Mirtazapine (Remeron) 7.5 mg QHS PO Last administered on 05/07/18 20:57; Start 05/05/18 at 21:00; Stop 05/08/18 at 11:20; Status DC Quetiapine Fumarate (SEROquel) 12.5 mg DAILY PO Last administered on 05/06/18 11:41; Start 05/06/18 at 09:00; Stop 05/06/18 at 18:40; Status DC Quetiapine Fumarate (SEROquel) 12.5 mg 0900,1700 PO Last administered on 10:35; Start 05/07/18 at 09:00; Stop 05/07/18 at 16:38; Status DC Trazodone HCl (Desyrel) 50 mg PRN QHS PRN PO INSOMNIA, MAY REPEAT X1 Last administered on 05/13/18 21:25; Start 05/06/18 at 18:45 Trazodone HCl (Desyrel) 50 mg QHS PO Last administered on 05/16/18 20:24; Start 05/06/18 at 21:00 Olanzapine (ZyPREXA ZYDIS) 2.5 mg PRN Q2HR PRN PO PSYCHOSIS Last administered on 05/13/18 19:46; Start 05/06/18 at 18:45 Quetiapine Fumarate (SEROquel) 12.5 mg 0900,1300,1700 PO Last administered on 17:27; Start 05/07/18 at 17:00; Stop 05/09/18 at 18:48; Status DC Mirtazapine (Remeron) 15 mg QHS PO Last administered on 05/16/18 20:23; Start 05/08/18 at 21:00 Loperamide HCl (Imodium) 2 mg PRN QID PRN PO DIARRHEA Last administered on 05/16 16:17; Start 05/08/18 at 16:30 Quetiapine Fumarate (SEROquel) 25 mg 1700,2100 PO Last administered on 20:23; Start 05/09/18 at 21:00 Quetiapine Fumarate (SEROquel) 12.5 mg 0900,1300 PO Last administered on 13:52; Start 05/10/18 at 09:00; Stop 05/10/18 at 19:08; Status DC Quetiapine Fumarate (SEROquel) 12.5 mg DAILY@1300 PO Last administered on 14:00; Start 05/11/18 at 13:00; Stop 05/12/18 at 18:28; Status DC Quetiapine Fumarate (SEROquel) 25 mg DAILY PO Last administered on 05/16/18 08 :11; Start 05/11/18 at 09:00 Nystatin (Nystop) 1 bessy BID TP Last administered on 05/16/18 20:24; Start 05/11 at 21:00 Docusate Sodium (Colace) 100 mg BID PO Last administered on 05/16/18at 08:10; Start 05/12/18 at 21:00 Quetiapine Fumarate (SEROquel) 25 mg DAILY@1300 PO Last administered on at 13:43; Start 05/13/18 at 13:00; Stop 05/14/18 at 19:23; Status DC Ciprofloxacin (Cipro) 500 mg BID PO Last administered on 05/16/18at 20:24; Start 05/13/18 at 10:00; Stop 05/20/18 at 09:59 Lactobacillus Rhamnosus (Culturelle) 1 cap BID PO Last administered on at 20:23; Start 05/13/18 at 21:00 Quetiapine Fumarate (SEROquel) 25 mg DAILY PO ; Start 05/15/18 at 09:00; Status Cancel Neomycin/ Polymyxin/ Bacitracin (Triple Antibiotic Ointment) 1 pkt 1X ONCE TP Last administered on 05/15/18at 10:15; Start 05/15/18 at 10:15; Stop 05/15/18 at 10:16; Status DC Fluconazole (Diflucan) 100 mg 1X ONCE PO Last administered on 05/15/18at 16:25 ; Start 05/15/18 at 16:00; Stop 05/15/18 at 16:12; Status DC Active Scripts Active Reported Proctosol-Hc (Hydrocortisone) 28.35 Gm Cream..g. 1 Applic RC BID Proctosol-Hc (Hydrocortisone) 28.35 Gm Cream..g. 1 Applic RC PRN BID PRN Ondansetron Hcl 4 Mg Tablet 4 Mg PO PRN TID PRN Metoprolol Tartrate 50 Mg Tablet 50 Mg PO BID Omeprazole 20 Mg Tablet.dr 20 Mg PO DAILY07 Citalopram Hbr (Citalopram Hydrobromide) 10 Mg Tablet 10 Mg PO DAILY Centrum Silver Tablet (Multivits-Min/Fa/Lycopene/Lut) 1 Each Tablet 1 Each PO DAILY Keflex (Cephalexin) 500 Mg Capsule 500 Mg PO Q6HRS Ultram (Tramadol HCl) 50 Mg Tablet 50 Mg PO BID PRN Tapazole (Methimazole) 5 Mg Tablet 5 Mg PO Q8HRS Seroquel (Quetiapine Fumarate) 25 Mg Tablet 25 Mg PO PRN DAILY PRN Seroquel (Quetiapine Fumarate) 25 Mg Tablet 25 Mg PO QHS Tylenol (Acetaminophen) 325 Mg Tablet 650 Mg PO BID Tylenol (Acetaminophen) 325 Mg Tablet 650 Mg PO PRN Q6HRS PRN I have reviewed the current psychotropics carefully including drug interactions. Risk benefit ratio favors no change other than as noted in my dictated progress note. Diagnosis: Problems: (1) Dementia due to Alzheimer's disease (2) Anxiety disorder (3) Dementia in Alzheimer's disease with delusions (4) Dementia in Alzheimer's disease with depression (5) Dementia, vascular, with delusions (6) Dementia, vascular, with depression (7) Impulse control disorder KADEN RIVAS MD May 16, 2018 23:08
[2018-05-17 05:50] VITALS: BP 98/60
[2018-05-17 08:55] LABS: BASO # 0.1 x10^3/uL (0.0-0.2); BASO % 1 % (0-3); EOS # 0.4 x10^3/uL (0.0-0.7); EOS % 6 % (0-3); HEMATOCRIT 40.2 % (36.0-47.0); HEMOGLOBIN 13.5 g/dL (12.0-15.5); LYMPH # 1.5 x10^3/uL (1.0-4.8); LYMPH % 27 % (24-48); MEAN CORPUSCULAR HEMOGLOBIN 30 pg (25-35); MEAN CORPUSCULAR HGB CONC 34 g/dL (31-37); MEAN CORPUSCULAR VOLUME 89 fL (79-100); MONO # 0.8 x10^3/uL (0.0-1.1); MONO % 14 % (0-9); NEUT # 2.9 x10^3uL (1.8-7.7); NEUT % 52 % (31-73); PLATELET COUNT 350 x10^3/uL (140-400); RED BLOOD COUNT 4.49 x10^6/uL (3.50-5.40); RED CELL DISTRIBUTION WIDTH 13.9 % (11.5-14.5); WHITE BLOOD COUNT 5.6 x10^3/uL (4.0-11.0)
[2018-05-17] MEDS: METOPROLOL TART IMMED RELEASE 50 MG TABLET PO SCH ×2 (09:00→19:22)
[2018-05-17] MEDS: DOCUSATE SODIUM 100 MG CAPSULE PO SCH ×2 (09:00→19:22)
[2018-05-17 09:10] LABS: ALBUMIN 3.1 g/dL (3.4-5.0); ALBUMIN/GLOBULIN RATIO 0.9 (1.0-1.7); CALCIUM 9.2 mg/dL (8.5-10.1); CREATININE 0.8 mg/dL (0.6-1.0); GFR 70.5; POTASSIUM 4.1 mmol/L (3.5-5.1); TOTAL BILIRUBIN 0.4 mg/dL (0.2-1.0); TOTAL PROTEIN 6.7 g/dL (6.4-8.2)
[2018-05-17] MEDS: PANTOPRAZOLE 40 MG TABLET. PO SCH (09:39)
[2018-05-17] MEDS: CITALOPRAM 10 MG TABLET. PO SCH (09:39)
[2018-05-17] MEDS: CIPROFLOXACIN HCL 500 MG TABLET PO SCH ×2 (09:39→19:21)
[2018-05-17] MEDS: LACTOBACILLUS RHAMNOSUS GG 1 CAPSULE. PO SCH ×2 (09:39→19:22)
[2018-05-17] MEDS: NYSTATIN TOPICAL POWDER 15GM BOTTLE. TP SCH ×2 (09:40→19:23)
[2018-05-17] MEDS: QUEtiapine 25 MG TABLET. PO SCH ×3 (09:40→19:22)
[2018-05-17] MEDS: ACETAMINOPHEN 325 MG TABLET PO SCH ×2 (09:40→19:23)
[2018-05-17] MEDS: MULTIVITAMIN with MINERAL TABLET. PO SCH (09:40)
[2018-05-17 15:59] VITALS: BP 112/73
[2018-05-17] MEDS: MIRTAZAPINE 15 MG TABLET PO SCH (19:22)
[2018-05-17] MEDS: traZODone 50 MG TABLET. PO SCH (19:24)
--- NOTE | 2018-05-17 22:35 | PN ---
DATE: 05/16/2018 PSYCHIATRIC PROGRESS NOTE This is a late entry 05/16/2018, covers elements not covered in my initial note. SUBJECTIVE: I met with the patient in the evening. The patient slept 5-1/2 hours previous evening. She remains confused, but has been more pleasant, had 1 loose stool, received Imodium x 2. REVIEW OF SYSTEMS: No CV, , pulmonary, eye, ENT system symptoms on review other than above, but she was not forthcoming with that either. MENTAL STATUS EXAM: Oriented to herself. Insight, judgment, recent and remote memory, attention, concentration, fund of knowledge poor, consistent with her diagnoses mentioned in my initial note. PLAN: Continue psychotropics from initial note. Adjust further as clinically indicated. MAN Tosha RIVAS MD DR: ZAHRA/marian JOB#: [id number] / [id number]
--- NOTE | 2018-05-17 23:04 | PDOC ---
Exam Note: [place] Note: Please also refer to the separate dictated note~for this date of service dictated separately.~Patient seen individually. Discussed the patient with Nursing staff reviewed the chart.~Reviewed interim history and current functioning. Reviewed vital signs,~Labs/ Radiology~and current medications noted below. Continue current treatment with the changes noted in the dictated addendum note Assessment: Vital Signs: Vital Signs Date Time Temp Pulse Resp B/P (MAP) Pulse Ox O2 Delivery O2 Flow Rate FiO2 05/17/18 19:22 89 112/73 05/17/18 15:59 97.5 18 95 05/13/18 22:30 Room Air I&O Intake and Output 05/17/18 06:59 Intake Total 660 ml Balance 660 ml Intake Oral 660 ml # Voids 1 Labs: Laboratory Tests Test 05/17/18 08:42 White Blood Count 5.6 x10^3/uL (4.0-11.0) Red Blood Count 4.49 x10^6/uL (3.50-5.40) Hemoglobin 13.5 g/dL (12.0-15.5) Hematocrit 40.2 % (36.0-47.0) Mean Corpuscular Volume 89 fL (79-100) Mean Corpuscular Hemoglobin 30 pg (25-35) Mean Corpuscular Hemoglobin Concent 34 g/dL (31-37) Red Cell Distribution Width 13.9 % (11.5-14.5) Platelet Count 350 x10^3/uL (140-400) Neutrophils (%) (Auto) 52 % (31-73) Lymphocytes (%) (Auto) 27 % (24-48) Monocytes (%) (Auto) 14 % (0-9) H Eosinophils (%) (Auto) 6 % (0-3) H Basophils (%) (Auto) 1 % (0-3) Neutrophils # (Auto) 2.9 x10^3uL (1.8-7.7) Lymphocytes # (Auto) 1.5 x10^3/uL (1.0-4.8) Monocytes # (Auto) 0.8 x10^3/uL (0.0-1.1) Eosinophils # (Auto) 0.4 x10^3/uL (0.0-0.7) Basophils # (Auto) 0.1 x10^3/uL (0.0-0.2) Sodium Level 142 mmol/L (136-145) Potassium Level 4.1 mmol/L (3.5-5.1) Chloride Level 106 mmol/L (98-107) Carbon Dioxide Level 29 mmol/L (21-32) Anion Gap 7 (6-14) Blood Urea Nitrogen 18 mg/dL (7-20) Creatinine 0.8 mg/dL (0.6-1.0) Estimated GFR (Cockcroft-Gault) 70.5 BUN/Creatinine Ratio 23 (6-20) H Glucose Level 89 mg/dL (70-99) Calcium Level 9.2 mg/dL (8.5-10.1) Total Bilirubin 0.4 mg/dL (0.2-1.0) Aspartate Amino Transferase (AST) 22 U/L (15-37) Alanine Aminotransferase (ALT) 36 U/L (14-59) Alkaline Phosphatase 85 U/L (46-116) Total Protein 6.7 g/dL (6.4-8.2) Albumin 3.1 g/dL (3.4-5.0) L Albumin/Globulin Ratio 0.9 (1.0-1.7) L Current Medications: Meds: Current Medications Ceftriaxone Sodium 1 gm/ Sodium Chloride 50 ml @ 100 mls/hr 1X ONCE IV ; Start 05/03/18 at 22:30; Stop 05/03/18 at 22:30; Status DC Ceftriaxone Sodium (Rocephin Im) 1 gm 1X ONCE IM Last administered on at 22:46; Start 05/03/18 at 22:45; Stop 05/03/18 at 23:54; Status DC Ceftriaxone Sodium (Rocephin) 1 gm STK-MED ONCE IV ; Start 05/03/18 at 22:37; Stop 05/03/18 at 22:38; Status DC Acetaminophen (Tylenol) 650 mg PRN Q6HRS PRN PO PAIN / TEMP; Start 05/03/18 at 23:15; Status Cancel Multi-Ingredient Ointment (Analgesic [place]) 1 bessy PRN QID PRN TP MUSCLE PAIN; Start 05/03/18 at 23:15 Al Hydroxide/Mg Hydroxide (Mylanta Plus Xs) 15 ml PRN AFTMEALHC PRN PO DYSPEPSIA; Start 05/03/18 at 23:15 Magnesium Hydroxide (Milk Of Magnesia) 2,400 mg PRN QHS PRN PO CONSTIPATION; Start 05/03/18 at 23:15 Citalopram Hydrobromide (CeleXA) 10 mg DAILY PO Last administered on 05/17/18at 09:39; Start 05/04/18 at 09:00 Non-Formulary Medication (Quetiapine Fumarate (Seroquel)) 25 mg PRN DAILY PRN PO AGITATION; Start 05/04/18 at 00:15; Status UNV Non-Formulary Medication (Quetiapine Fumarate (Seroquel)) 25 mg QHS PO ; Start 05/04/18 at 21:00; Status UNV Acetaminophen (Tylenol) 650 mg BID PO Last administered on 05/17/18at 19:23; Start 05/04/18 at 09:00 Acetaminophen (Tylenol) 650 mg PRN Q6HRS PRN PO PAIN; Start 05/04/18 at 00:15 Hydrocortisone (Proctosol-Hc) 1 bessy PRN BID PRN RC RECTAL PAIN; Start 05/04/18 at 00:15 Tramadol HCl (Ultram) 50 mg PRN BID PRN PO PAIN Last administered on 05/13/18at 21:26; Start 05/04/18 at 00:15 Non-Formulary Medication (Cephalexin (Keflex)) 500 mg Q6HRS PO ; Start 05/04/18 at 06:00; Status UNV Non-Formulary Medication (Methimazole (Tapazole)) 5 mg Q8HRS PO ; Start 05/04/18 at 06:00; Status UNV Non-Formulary Medication (Metoprolol Tartrate ) 50 mg BID PO ; Start 05/04/18 at 09:00; Stop 05/04/18 at 09:00; Status Cancel Non-Formulary Medication (Multivits-Min/ Fa/Lycopene/Lut (Centrum Silver Tablet) ) 1 each DAILY PO ; Start 05/04/18 at 09:00; Stop 05/04/18 at 09:00; Status DC Non-Formulary Medication (Omeprazole ) 20 mg DAILY07 PO ; Start 05/04/18 at 07:00 ; Stop 05/04/18 at 07:00; Status DC Non-Formulary Medication (Ondansetron Hcl ) 4 mg PRN TID PRN PO NAUSEA/VOMITING ; Start 05/04/18 at 00:15; Status UNV Cephalexin HCl (Keflex) 500 mg Q6HRS PO Last administered on 05/06/18 17:55; Start 05/04/18 at 06:00; Stop 05/06/18 at 19:00; Status DC Methimazole (Tapazole) 5 mg Q8HRS PO Last administered on 05/17/18 19:23; Start 05/04/18 at 06:00 Quetiapine Fumarate (SEROquel) 25 mg HS PO Last administered on 05/08/18 20:45 ; Start 05/04/18 at 21:00; Stop 05/09/18 at 18:48; Status DC Quetiapine Fumarate (SEROquel) 25 mg PRN DAILY PRN PO ANXIETY / AGITATION Last administered on 05/05/18 22:11; Start 05/04/18 at 02:30; Stop 05/06/18 at 18:40; Status DC Ondansetron HCl (Zofran Odt) 4 mg PRN TID PRN PO NAUSEA/VOMITING; Start at 02:30 Metoprolol Tartrate (Lopressor) 50 mg BID PO Last administered on 05/17/18 19: 22; Start 05/04/18 at 09:00 Multivitamins/ Calcium (Thera-M Plus) 1 tab DAILY PO Last administered on 09:40; Start 05/04/18 at 09:00 Pantoprazole Sodium (Protonix) 40 mg DAILYAC PO Last administered on 05/17/18at 09:39; Start 05/04/18 at 07:30 Trazodone HCl (Desyrel) 25 mg PRN QHS PRN PO INSOMNIA, MAY REPEAT X1 Last administered on 05/05/18 22:12; Start 05/04/18 at 19:45; Stop 05/06/18 at 18:40; Status DC Mirtazapine (Remeron) 7.5 mg QHS PO Last administered on 05/07/18 20:57; Start 05/05/18 at 21:00; Stop 05/08/18 at 11:20; Status DC Quetiapine Fumarate (SEROquel) 12.5 mg DAILY PO Last administered on 05/06/18 11:41; Start 05/06/18 at 09:00; Stop 05/06/18 at 18:40; Status DC Quetiapine Fumarate (SEROquel) 12.5 mg 0900,1700 PO Last administered on at 10:35; Start 05/07/18 at 09:00; Stop 05/07/18 at 16:38; Status DC Trazodone HCl (Desyrel) 50 mg PRN QHS PRN PO INSOMNIA, MAY REPEAT X1 Last administered on 05/13/18 21:25; Start 05/06/18 at 18:45 Trazodone HCl (Desyrel) 50 mg QHS PO Last administered on 05/17/18 19:24; Start 05/06/18 at 21:00 Olanzapine (ZyPREXA ZYDIS) 2.5 mg PRN Q2HR PRN PO PSYCHOSIS Last administered on 05/17/18 16:18; Start 05/06/18 at 18:45 Quetiapine Fumarate (SEROquel) 12.5 mg 0900,1300,1700 PO Last administered on 17:27; Start 05/07/18 at 17:00; Stop 05/09/18 at 18:48; Status DC Mirtazapine (Remeron) 15 mg QHS PO Last administered on 05/17/18at 19:22; Start 05/08/18 at 21:00 Loperamide HCl (Imodium) 2 mg PRN QID PRN PO DIARRHEA Last administered on 05/16 16:17; Start 05/08/18 at 16:30 Quetiapine Fumarate (SEROquel) 25 mg 1700,2100 PO Last administered on 19:22; Start 05/09/18 at 21:00 Quetiapine Fumarate (SEROquel) 12.5 mg 0900,1300 PO Last administered on at 13:52; Start 05/10/18 at 09:00; Stop 05/10/18 at 19:08; Status DC Quetiapine Fumarate (SEROquel) 12.5 mg DAILY@1300 PO Last administered on at 14:00; Start 05/11/18 at 13:00; Stop 05/12/18 at 18:28; Status DC Quetiapine Fumarate (SEROquel) 25 mg DAILY PO Last administered on 05/17/18at 09 :40; Start 05/11/18 at 09:00 Nystatin (Nystop) 1 bessy BID TP Last administered on 05/17/18 19:23; Start 05/11 at 21:00 Docusate Sodium (Colace) 100 mg BID PO Last administered on 05/17/18 19:22; Start 05/12/18 at 21:00 Quetiapine Fumarate (SEROquel) 25 mg DAILY@1300 PO Last administered on at 13:43; Start 05/13/18 at 13:00; Stop 05/14/18 at 19:23; Status DC Ciprofloxacin (Cipro) 500 mg BID PO Last administered on 05/17/18at 19:21; Start 05/13/18 at 10:00; Stop 05/20/18 at 09:59 Lactobacillus Rhamnosus (Culturelle) 1 cap BID PO Last administered on 19:22; Start 05/13/18 at 21:00 Quetiapine Fumarate (SEROquel) 25 mg DAILY PO ; Start 05/15/18 at 09:00; Status Cancel Neomycin/ Polymyxin/ Bacitracin (Triple Antibiotic Ointment) 1 pkt 1X ONCE TP Last administered on 05/15/18at 10:15; Start 05/15/18 at 10:15; Stop 05/15/18 at 10:16; Status DC Fluconazole (Diflucan) 100 mg 1X ONCE PO Last administered on 05/15/18at 16:25 ; Start 05/15/18 at 16:00; Stop 05/15/18 at 16:12; Status DC Nystatin (Nystop) 15 bessy STK-MED ONCE TP Last administered on 05/17/18 17:12; Start 05/10/18 at 14:29; Stop 05/17/18 at 17:07; Status DC Active Scripts Active Reported Proctosol-Hc (Hydrocortisone) 28.35 Gm Cream..g. 1 Applic RC BID Proctosol-Hc (Hydrocortisone) 28.35 Gm Cream..g. 1 Applic RC PRN BID PRN Ondansetron Hcl 4 Mg Tablet 4 Mg PO PRN TID PRN Metoprolol Tartrate 50 Mg Tablet 50 Mg PO BID Omeprazole 20 Mg Tablet.dr 20 Mg PO DAILY07 Citalopram Hbr (Citalopram Hydrobromide) 10 Mg Tablet 10 Mg PO DAILY Centrum Silver Tablet (Multivits-Min/Fa/Lycopene/Lut) 1 Each Tablet 1 Each PO DAILY Keflex (Cephalexin) 500 Mg Capsule 500 Mg PO Q6HRS Ultram (Tramadol HCl) 50 Mg Tablet 50 Mg PO BID PRN Tapazole (Methimazole) 5 Mg Tablet 5 Mg PO Q8HRS Seroquel (Quetiapine Fumarate) 25 Mg Tablet 25 Mg PO PRN DAILY PRN Seroquel (Quetiapine Fumarate) 25 Mg Tablet 25 Mg PO QHS Tylenol (Acetaminophen) 325 Mg Tablet 650 Mg PO BID Tylenol (Acetaminophen) 325 Mg Tablet 650 Mg PO PRN Q6HRS PRN I have reviewed the current psychotropics carefully including drug interactions. Risk benefit ratio favors no change other than as noted in my dictated progress note. Diagnosis: Problems: (1) Dementia due to Alzheimer's disease (2) Anxiety disorder (3) Dementia in Alzheimer's disease with delusions (4) Dementia in Alzheimer's disease with depression (5) Dementia, vascular, with delusions (6) Dementia, vascular, with depression (7) Impulse control disorder KADEN RIVAS MD May 17, 2018 23:04
[2018-05-18 05:54] VITALS: BP 108/50
[2018-05-18] MEDS: METOPROLOL TART IMMED RELEASE 50 MG TABLET PO SCH ×2 (09:00→21:07)
[2018-05-18] MEDS: DOCUSATE SODIUM 100 MG CAPSULE PO SCH ×2 (09:00→21:07)
[2018-05-18] MEDS: MULTIVITAMIN with MINERAL TABLET. PO SCH (09:00)
[2018-05-18] MEDS: QUEtiapine 25 MG TABLET. PO SCH ×2 (09:19→17:18)
[2018-05-18] MEDS: PANTOPRAZOLE 40 MG TABLET. PO SCH (09:19)
[2018-05-18] MEDS: ACETAMINOPHEN 325 MG TABLET PO SCH ×2 (09:20→21:06)
[2018-05-18] MEDS: CIPROFLOXACIN HCL 500 MG TABLET PO SCH ×2 (09:20→21:06)
[2018-05-18] MEDS: LACTOBACILLUS RHAMNOSUS GG 1 CAPSULE. PO SCH ×2 (09:20→21:06)
[2018-05-18] MEDS: CITALOPRAM 10 MG TABLET. PO SCH (09:20)
[2018-05-18] MEDS: NYSTATIN TOPICAL POWDER 15GM BOTTLE. TP SCH ×2 (09:21→21:07)
[2018-05-18 13:13] LABS: BACTERIA,URINE FEW /HPF (0-FEW); BILIRUBIN,URINE NEG (NEG); CLARITY,URINE HAZY; COLOR,URINE AMBER; GLUCOSE,URINE NEG (NEG); NITRITE,URINE NEG (NEG); RBC,URINE 0 /HPF (0-2); SQUAMOUS EPITHELIAL CELL,UR OCC /LPF; UROBILINOGEN,URINE 0.2 mg/dL (0.2 mg/dL)
--- NOTE | 2018-05-18 21:00 | PDOC ---
Exam Note: [place] Note: Please also refer to the separate dictated note~for this date of service dictated separately.~Patient seen individually. Discussed the patient with Nursing staff reviewed the chart.~Reviewed interim history and current functioning. Reviewed vital signs,~Labs/ Radiology~and current medications noted below. Continue current treatment with the changes noted in the dictated addendum note Assessment: Vital Signs: Vital Signs Date Time Temp Pulse Resp B/P (MAP) Pulse Ox O2 Delivery O2 Flow Rate FiO2 05/18/18 05:54 97.5 63 18 108/50 (69) 94 05/13/18 22:30 Room Air I&O Intake and Output 05/18/18 06:59 Intake Total 600 ml Balance 600 ml Intake Oral 600 ml # Voids 1 # Bowel Movements 1 Labs: Laboratory Tests Test 05/18/18 12:52 Urine Collection Type Unknown Urine Color [place] Urine Clarity Hazy Urine pH 6.0 Urine Specific [place] >=1.030 Urine Protein 100 mg/dl (NEG-TRACE) Urine Glucose (UA) Neg mg/dL (NEG) Urine Ketones (Stick) 40 mg/dL (NEG) Urine Blood Neg (NEG) Urine Nitrite Neg (NEG) Urine Bilirubin Neg (NEG) Urine Urobilinogen Dipstick 0.2 mg/dL (0.2 mg/dL) Urine Leukocyte Esterase Trace (NEG) Urine RBC 0 /HPF (0-2) Urine WBC 1-4 /HPF (0-4) Urine Squamous Epithelial Cells Occ /LPF Urine Transitional Epithelial Cells Few /LPF Urine Bacteria Few /HPF (0-FEW) Urine Mucus Marked /LPF Current Medications: Meds: Current Medications Ceftriaxone Sodium 1 gm/ Sodium Chloride 50 ml @ 100 mls/hr 1X ONCE IV ; Start 05/03/18 at 22:30; Stop 05/03/18 at 22:30; Status DC Ceftriaxone Sodium (Rocephin Im) 1 gm 1X ONCE IM Last administered on at 22:46; Start 05/03/18 at 22:45; Stop 05/03/18 at 23:54; Status DC Ceftriaxone Sodium (Rocephin) 1 gm STK-MED ONCE IV ; Start 05/03/18 at 22:37; Stop 05/03/18 at 22:38; Status DC Acetaminophen (Tylenol) 650 mg PRN Q6HRS PRN PO PAIN / TEMP; Start 05/03/18 at 23:15; Status Cancel Multi-Ingredient Ointment (Analgesic [place]) 1 bessy PRN QID PRN TP MUSCLE PAIN; Start 05/03/18 at 23:15 Al Hydroxide/Mg Hydroxide (Mylanta Plus Xs) 15 ml PRN AFTMEALHC PRN PO DYSPEPSIA; Start 05/03/18 at 23:15 Magnesium Hydroxide (Milk Of Magnesia) 2,400 mg PRN QHS PRN PO CONSTIPATION; Start 05/03/18 at 23:15 Citalopram Hydrobromide (CeleXA) 10 mg DAILY PO Last administered on 05/18/18at 09:20; Start 05/04/18 at 09:00 Non-Formulary Medication (Quetiapine Fumarate (Seroquel)) 25 mg PRN DAILY PRN PO AGITATION; Start 05/04/18 at 00:15; Status UNV Non-Formulary Medication (Quetiapine Fumarate (Seroquel)) 25 mg QHS PO ; Start 05/04/18 at 21:00; Status UNV Acetaminophen (Tylenol) 650 mg BID PO Last administered on 05/18/18at 09:20; Start 05/04/18 at 09:00 Acetaminophen (Tylenol) 650 mg PRN Q6HRS PRN PO PAIN; Start 05/04/18 at 00:15 Hydrocortisone (Proctosol-Hc) 1 bessy PRN BID PRN RC RECTAL PAIN; Start 05/04/18 at 00:15 Tramadol HCl (Ultram) 50 mg PRN BID PRN PO PAIN Last administered on 05/13/18at 21:26; Start 05/04/18 at 00:15 Non-Formulary Medication (Cephalexin (Keflex)) 500 mg Q6HRS PO ; Start 05/04/18 at 06:00; Status UNV Non-Formulary Medication (Methimazole (Tapazole)) 5 mg Q8HRS PO ; Start 05/04/18 at 06:00; Status UNV Non-Formulary Medication (Metoprolol Tartrate ) 50 mg BID PO ; Start 05/04/18 at 09:00; Stop 05/04/18 at 09:00; Status Cancel Non-Formulary Medication (Multivits-Min/ Fa/Lycopene/Lut (Centrum Silver Tablet) ) 1 each DAILY PO ; Start 05/04/18 at 09:00; Stop 05/04/18 at 09:00; Status DC Non-Formulary Medication (Omeprazole ) 20 mg DAILY07 PO ; Start 05/04/18 at 07:00 ; Stop 05/04/18 at 07:00; Status DC Non-Formulary Medication (Ondansetron Hcl ) 4 mg PRN TID PRN PO NAUSEA/VOMITING ; Start 05/04/18 at 00:15; Status UNV Cephalexin HCl (Keflex) 500 mg Q6HRS PO Last administered on 05/06/18at 17:55; Start 05/04/18 at 06:00; Stop 05/06/18 at 19:00; Status DC Methimazole (Tapazole) 5 mg Q8HRS PO Last administered on 05/18/18at 13:39; Start 05/04/18 at 06:00 Quetiapine Fumarate (SEROquel) 25 mg HS PO Last administered on 05/08/18at 20:45 ; Start 05/04/18 at 21:00; Stop 05/09/18 at 18:48; Status DC Quetiapine Fumarate (SEROquel) 25 mg PRN DAILY PRN PO ANXIETY / AGITATION Last administered on 05/05/18 22:11; Start 05/04/18 at 02:30; Stop 05/06/18 at 18:40; Status DC Ondansetron HCl (Zofran Odt) 4 mg PRN TID PRN PO NAUSEA/VOMITING; Start at 02:30 Metoprolol Tartrate (Lopressor) 50 mg BID PO Last administered on 05/17/18 19: 22; Start 05/04/18 at 09:00 Multivitamins/ Calcium (Thera-M Plus) 1 tab DAILY PO Last administered on at 09:40; Start 05/04/18 at 09:00 Pantoprazole Sodium (Protonix) 40 mg DAILYAC PO Last administered on 05/18/18 09:19; Start 05/04/18 at 07:30 Trazodone HCl (Desyrel) 25 mg PRN QHS PRN PO INSOMNIA, MAY REPEAT X1 Last administered on 05/05/18at 22:12; Start 05/04/18 at 19:45; Stop 05/06/18 at 18:40; Status DC Mirtazapine (Remeron) 7.5 mg QHS PO Last administered on 05/07/18 20:57; Start 05/05/18 at 21:00; Stop 05/08/18 at 11:20; Status DC Quetiapine Fumarate (SEROquel) 12.5 mg DAILY PO Last administered on 05/06/18at 11:41; Start 05/06/18 at 09:00; Stop 05/06/18 at 18:40; Status DC Quetiapine Fumarate (SEROquel) 12.5 mg 0900,1700 PO Last administered on at 10:35; Start 05/07/18 at 09:00; Stop 05/07/18 at 16:38; Status DC Trazodone HCl (Desyrel) 50 mg PRN QHS PRN PO INSOMNIA, MAY REPEAT X1 Last administered on 05/13/18at 21:25; Start 05/06/18 at 18:45 Trazodone HCl (Desyrel) 50 mg QHS PO Last administered on 05/17/18at 19:24; Start 05/06/18 at 21:00 Olanzapine (ZyPREXA ZYDIS) 2.5 mg PRN Q2HR PRN PO PSYCHOSIS Last administered on 05/18/18 07:34; Start 05/06/18 at 18:45 Quetiapine Fumarate (SEROquel) 12.5 mg 0900,1300,1700 PO Last administered on 17:27; Start 05/07/18 at 17:00; Stop 05/09/18 at 18:48; Status DC Mirtazapine (Remeron) 15 mg QHS PO Last administered on 05/17/18 19:22; Start 05/08/18 at 21:00 Loperamide HCl (Imodium) 2 mg PRN QID PRN PO DIARRHEA Last administered on 05/16 16:17; Start 05/08/18 at 16:30 Quetiapine Fumarate (SEROquel) 25 mg 1700,2100 PO Last administered on 17:18; Start 05/09/18 at 21:00; Stop 05/18/18 at 20:07; Status DC Quetiapine Fumarate (SEROquel) 12.5 mg 0900,1300 PO Last administered on at 13:52; Start 05/10/18 at 09:00; Stop 05/10/18 at 19:08; Status DC Quetiapine Fumarate (SEROquel) 12.5 mg DAILY@1300 PO Last administered on at 14:00; Start 05/11/18 at 13:00; Stop 05/12/18 at 18:28; Status DC Quetiapine Fumarate (SEROquel) 25 mg DAILY PO Last administered on 05/18/18at 09 :19; Start 05/11/18 at 09:00; Stop 05/18/18 at 20:07; Status DC Nystatin (Nystop) 1 bessy BID TP Last administered on 05/18/18at 09:21; Start 05/11 at 21:00 Docusate Sodium (Colace) 100 mg BID PO Last administered on 05/17/18at 19:22; Start 05/12/18 at 21:00 Quetiapine Fumarate (SEROquel) 25 mg DAILY@1300 PO Last administered on at 13:43; Start 05/13/18 at 13:00; Stop 05/14/18 at 19:23; Status DC Ciprofloxacin (Cipro) 500 mg BID PO Last administered on 05/18/18at 09:20; Start 05/13/18 at 10:00; Stop 05/20/18 at 09:59 Lactobacillus Rhamnosus (Culturelle) 1 cap BID PO Last administered on at 09:20; Start 05/13/18 at 21:00 Quetiapine Fumarate (SEROquel) 25 mg DAILY PO ; Start 05/15/18 at 09:00; Status Cancel Neomycin/ Polymyxin/ Bacitracin (Triple Antibiotic Ointment) 1 pkt 1X ONCE TP Last administered on 05/15/18at 10:15; Start 05/15/18 at 10:15; Stop 05/15/18 at 10:16; Status DC Fluconazole (Diflucan) 100 mg 1X ONCE PO Last administered on 05/15/18at 16:25 ; Start 05/15/18 at 16:00; Stop 05/15/18 at 16:12; Status DC Nystatin (Nystop) 15 bessy STK-MED ONCE TP Last administered on 05/17/18at 17:12; Start 05/10/18 at 14:29; Stop 05/17/18 at 17:07; Status DC Quetiapine Fumarate (SEROquel) 37.5 mg TID@0900,1300,1700 PO ; Start 05/19/18 at 09:00 Active Scripts Active Reported Proctosol-Hc (Hydrocortisone) 28.35 Gm Cream..g. 1 Applic RC BID Proctosol-Hc (Hydrocortisone) 28.35 Gm Cream..g. 1 Applic RC PRN BID PRN Ondansetron Hcl 4 Mg Tablet 4 Mg PO PRN TID PRN Metoprolol Tartrate 50 Mg Tablet 50 Mg PO BID Omeprazole 20 Mg Tablet.dr 20 Mg PO DAILY07 Citalopram Hbr (Citalopram Hydrobromide) 10 Mg Tablet 10 Mg PO DAILY Centrum Silver Tablet (Multivits-Min/Fa/Lycopene/Lut) 1 Each Tablet 1 Each PO DAILY Keflex (Cephalexin) 500 Mg Capsule 500 Mg PO Q6HRS Ultram (Tramadol HCl) 50 Mg Tablet 50 Mg PO BID PRN Tapazole (Methimazole) 5 Mg Tablet 5 Mg PO Q8HRS Seroquel (Quetiapine Fumarate) 25 Mg Tablet 25 Mg PO PRN DAILY PRN Seroquel (Quetiapine Fumarate) 25 Mg Tablet 25 Mg PO QHS Tylenol (Acetaminophen) 325 Mg Tablet 650 Mg PO BID Tylenol (Acetaminophen) 325 Mg Tablet 650 Mg PO PRN Q6HRS PRN I have reviewed the current psychotropics carefully including drug interactions. Risk benefit ratio favors no change other than as noted in my dictated progress note. Diagnosis: Problems: (1) Dementia due to Alzheimer's disease (2) Anxiety disorder (3) Dementia in Alzheimer's disease with delusions (4) Dementia in Alzheimer's disease with depression (5) Dementia, vascular, with delusions (6) Dementia, vascular, with depression (7) Impulse control disorder KADEN RIVAS MD May 18, 2018 21:00
[2018-05-18] MEDS: MIRTAZAPINE 15 MG TABLET PO SCH (21:06)
[2018-05-18] MEDS: traZODone 50 MG TABLET. PO SCH (21:06)
[2018-05-19 06:08] VITALS: BP 93/61
[2018-05-19] MEDS: PANTOPRAZOLE 40 MG TABLET. PO SCH (06:26)
[2018-05-19] MEDS: DOCUSATE SODIUM 100 MG CAPSULE PO SCH ×2 (09:00→20:20)
[2018-05-19] MEDS: MULTIVITAMIN with MINERAL TABLET. PO SCH (09:00)
[2018-05-19] MEDS: NYSTATIN TOPICAL POWDER 15GM BOTTLE. TP SCH ×2 (09:00→20:23)
[2018-05-19] MEDS: METOPROLOL TART IMMED RELEASE 50 MG TABLET PO SCH ×2 (09:00→20:21)
[2018-05-19] MEDS: CIPROFLOXACIN HCL 500 MG TABLET PO SCH ×2 (09:51→20:25)
[2018-05-19] MEDS: CITALOPRAM 10 MG TABLET. PO SCH (09:51)
[2018-05-19] MEDS: LACTOBACILLUS RHAMNOSUS GG 1 CAPSULE. PO SCH ×2 (09:51→20:20)
[2018-05-19] MEDS: QUEtiapine 25 MG TABLET. PO SCH ×3 (09:52→17:15)
[2018-05-19] MEDS: ACETAMINOPHEN 325 MG TABLET PO SCH ×2 (09:53→20:21)
[2018-05-19 16:05] VITALS: BP 102/68
--- NOTE | 2018-05-19 18:30 | PN ---
DATE: 05/17/2018 PSYCHIATRIC PROGRESS NOTE This is a late entry for 05/17/2018, covers elements not covered in my initial note. SUBJECTIVE: I met with the patient in the evening. The patient slept 6-3/4 hours previous evening. Her stool culture was negative. She continues to have some loose bowel movement, compliant with medications, wandering in and out of other's rooms, quite confused. REVIEW OF SYSTEMS: No CV, , pulmonary, eye, ENT system symptoms on review. Reliability poor. MENTAL STATUS EXAM: Oriented to herself. Insight, judgment, recent and remote memory, attention, concentration, fund of knowledge poor, consistent with her diagnosis mentioned in my initial note. PLAN: Continue psychotropics from initial note. Adjust as clinically indicated. MAN Tosha RIVAS MD DR: ZAHRA/marian JOB#: [id number] / [id number]
[2018-05-19] MEDS: traZODone 50 MG TABLET. PO SCH (20:20)
[2018-05-19] MEDS: MIRTAZAPINE 15 MG TABLET PO SCH (20:21)
--- NOTE | 2018-05-19 20:29 | PDOC ---
Exam Note: [place] Note: Please also refer to the separate dictated note~for this date of service dictated separately.~Patient seen individually. Discussed the patient with Nursing staff reviewed the chart.~Reviewed interim history and current functioning. Reviewed vital signs,~Labs/ Radiology~and current medications noted below. Continue current treatment with the changes noted in the dictated addendum note Assessment: Vital Signs: Vital Signs Date Time Temp Pulse Resp B/P (MAP) Pulse Ox O2 Delivery O2 Flow Rate FiO2 05/19/18 20:21 98 102/68 05/19/18 16:05 97.9 16 93 05/19/18 06:08 Room Air I&O Intake and Output 05/19/18 06:59 Intake Total 480 ml Balance 480 ml Intake Oral 480 ml # Voids 1 # Bowel Movements 1 Current Medications: Meds: Current Medications Ceftriaxone Sodium 1 gm/ Sodium Chloride 50 ml @ 100 mls/hr 1X ONCE IV ; Start 05/03/18 at 22:30; Stop 05/03/18 at 22:30; Status DC Ceftriaxone Sodium (Rocephin Im) 1 gm 1X ONCE IM Last administered on at 22:46; Start 05/03/18 at 22:45; Stop 05/03/18 at 23:54; Status DC Ceftriaxone Sodium (Rocephin) 1 gm STK-MED ONCE IV ; Start 05/03/18 at 22:37; Stop 05/03/18 at 22:38; Status DC Acetaminophen (Tylenol) 650 mg PRN Q6HRS PRN PO PAIN / TEMP; Start 05/03/18 at 23:15; Status Cancel Multi-Ingredient Ointment (Analgesic [place]) 1 bessy PRN QID PRN TP MUSCLE PAIN; Start 05/03/18 at 23:15 Al Hydroxide/Mg Hydroxide (Mylanta Plus Xs) 15 ml PRN AFTMEALHC PRN PO DYSPEPSIA; Start 05/03/18 at 23:15 Magnesium Hydroxide (Milk Of Magnesia) 2,400 mg PRN QHS PRN PO CONSTIPATION; Start 05/03/18 at 23:15 Citalopram Hydrobromide (CeleXA) 10 mg DAILY PO Last administered on 05/19/18at 09:51; Start 05/04/18 at 09:00 Non-Formulary Medication (Quetiapine Fumarate (Seroquel)) 25 mg PRN DAILY PRN PO AGITATION; Start 05/04/18 at 00:15; Status UNV Non-Formulary Medication (Quetiapine Fumarate (Seroquel)) 25 mg QHS PO ; Start 05/04/18 at 21:00; Status UNV Acetaminophen (Tylenol) 650 mg BID PO Last administered on 05/19/18at 20:21; Start 05/04/18 at 09:00 Acetaminophen (Tylenol) 650 mg PRN Q6HRS PRN PO PAIN; Start 05/04/18 at 00:15 Hydrocortisone (Proctosol-Hc) 1 bessy PRN BID PRN RC RECTAL PAIN; Start 05/04/18 at 00:15 Tramadol HCl (Ultram) 50 mg PRN BID PRN PO PAIN Last administered on 05/13/18at 21:26; Start 05/04/18 at 00:15 Non-Formulary Medication (Cephalexin (Keflex)) 500 mg Q6HRS PO ; Start 05/04/18 at 06:00; Status UNV Non-Formulary Medication (Methimazole (Tapazole)) 5 mg Q8HRS PO ; Start 05/04/18 at 06:00; Status UNV Non-Formulary Medication (Metoprolol Tartrate ) 50 mg BID PO ; Start 05/04/18 at 09:00; Stop 05/04/18 at 09:00; Status Cancel Non-Formulary Medication (Multivits-Min/ Fa/Lycopene/Lut (Centrum Silver Tablet) ) 1 each DAILY PO ; Start 05/04/18 at 09:00; Stop 05/04/18 at 09:00; Status DC Non-Formulary Medication (Omeprazole ) 20 mg DAILY07 PO ; Start 05/04/18 at 07:00 ; Stop 05/04/18 at 07:00; Status DC Non-Formulary Medication (Ondansetron Hcl ) 4 mg PRN TID PRN PO NAUSEA/VOMITING ; Start 05/04/18 at 00:15; Status UNV Cephalexin HCl (Keflex) 500 mg Q6HRS PO Last administered on 05/06/18at 17:55; Start 05/04/18 at 06:00; Stop 05/06/18 at 19:00; Status DC Methimazole (Tapazole) 5 mg Q8HRS PO Last administered on 05/19/18 20:24; Start 05/04/18 at 06:00 Quetiapine Fumarate (SEROquel) 25 mg HS PO Last administered on 05/08/18 20:45 ; Start 05/04/18 at 21:00; Stop 05/09/18 at 18:48; Status DC Quetiapine Fumarate (SEROquel) 25 mg PRN DAILY PRN PO ANXIETY / AGITATION Last administered on 05/05/18 22:11; Start 05/04/18 at 02:30; Stop 05/06/18 at 18:40; Status DC Ondansetron HCl (Zofran Odt) 4 mg PRN TID PRN PO NAUSEA/VOMITING; Start at 02:30 Metoprolol Tartrate (Lopressor) 50 mg BID PO Last administered on 05/18/18 21: 07; Start 05/04/18 at 09:00 Multivitamins/ Calcium (Thera-M Plus) 1 tab DAILY PO Last administered on at 09:40; Start 05/04/18 at 09:00 Pantoprazole Sodium (Protonix) 40 mg DAILYAC PO Last administered on 05/19/18 06:26; Start 05/04/18 at 07:30 Trazodone HCl (Desyrel) 25 mg PRN QHS PRN PO INSOMNIA, MAY REPEAT X1 Last administered on 05/05/18 22:12; Start 05/04/18 at 19:45; Stop 05/06/18 at 18:40; Status DC Mirtazapine (Remeron) 7.5 mg QHS PO Last administered on 05/07/18 20:57; Start 05/05/18 at 21:00; Stop 05/08/18 at 11:20; Status DC Quetiapine Fumarate (SEROquel) 12.5 mg DAILY PO Last administered on 05/06/18at 11:41; Start 05/06/18 at 09:00; Stop 05/06/18 at 18:40; Status DC Quetiapine Fumarate (SEROquel) 12.5 mg 0900,1700 PO Last administered on at 10:35; Start 05/07/18 at 09:00; Stop 05/07/18 at 16:38; Status DC Trazodone HCl (Desyrel) 50 mg PRN QHS PRN PO INSOMNIA, MAY REPEAT X1 Last administered on 05/13/18at 21:25; Start 05/06/18 at 18:45 Trazodone HCl (Desyrel) 50 mg QHS PO Last administered on 05/19/18at 20:20; Start 05/06/18 at 21:00 Olanzapine (ZyPREXA ZYDIS) 2.5 mg PRN Q2HR PRN PO PSYCHOSIS Last administered on 05/18/18at 07:34; Start 05/06/18 at 18:45 Quetiapine Fumarate (SEROquel) 12.5 mg 0900,1300,1700 PO Last administered on at 17:27; Start 05/07/18 at 17:00; Stop 05/09/18 at 18:48; Status DC Mirtazapine (Remeron) 15 mg QHS PO Last administered on 05/19/18at 20:21; Start 05/08/18 at 21:00 Loperamide HCl (Imodium) 2 mg PRN QID PRN PO DIARRHEA Last administered on 05/16at 16:17; Start 05/08/18 at 16:30 Quetiapine Fumarate (SEROquel) 25 mg 1700,2100 PO Last administered on 17:18; Start 05/09/18 at 21:00; Stop 05/18/18 at 20:07; Status DC Quetiapine Fumarate (SEROquel) 12.5 mg 0900,1300 PO Last administered on at 13:52; Start 05/10/18 at 09:00; Stop 05/10/18 at 19:08; Status DC Quetiapine Fumarate (SEROquel) 12.5 mg DAILY@1300 PO Last administered on at 14:00; Start 05/11/18 at 13:00; Stop 05/12/18 at 18:28; Status DC Quetiapine Fumarate (SEROquel) 25 mg DAILY PO Last administered on 05/18/18at 09 :19; Start 05/11/18 at 09:00; Stop 05/18/18 at 20:07; Status DC Nystatin (Nystop) 1 bessy BID TP Last administered on 05/19/18at 20:23; Start 05/11 at 21:00 Docusate Sodium (Colace) 100 mg BID PO Last administered on 05/19/18at 20:20; Start 05/12/18 at 21:00 Quetiapine Fumarate (SEROquel) 25 mg DAILY@1300 PO Last administered on at 13:43; Start 05/13/18 at 13:00; Stop 05/14/18 at 19:23; Status DC Ciprofloxacin (Cipro) 500 mg BID PO Last administered on 05/19/18at 20:25; Start 05/13/18 at 10:00; Stop 05/20/18 at 09:59 Lactobacillus Rhamnosus (Culturelle) 1 cap BID PO Last administered on at 20:20; Start 05/13/18 at 21:00 Quetiapine Fumarate (SEROquel) 25 mg DAILY PO ; Start 05/15/18 at 09:00; Status Cancel Neomycin/ Polymyxin/ Bacitracin (Triple Antibiotic Ointment) 1 pkt 1X ONCE TP Last administered on 05/15/18at 10:15; Start 05/15/18 at 10:15; Stop 05/15/18 at 10:16; Status DC Fluconazole (Diflucan) 100 mg 1X ONCE PO Last administered on 05/15/18at 16:25 ; Start 05/15/18 at 16:00; Stop 05/15/18 at 16:12; Status DC Nystatin (Nystop) 15 bessy STK-MED ONCE TP Last administered on 05/17/18at 17:12; Start 05/10/18 at 14:29; Stop 05/17/18 at 17:07; Status DC Quetiapine Fumarate (SEROquel) 37.5 mg TID@0900,1300,1700 PO Last administered on 05/19/18at 17:15; Start 05/19/18 at 09:00 Active Scripts Active Reported Proctosol-Hc (Hydrocortisone) 28.35 Gm Cream..g. 1 Applic RC BID Proctosol-Hc (Hydrocortisone) 28.35 Gm Cream..g. 1 Applic RC PRN BID PRN Ondansetron Hcl 4 Mg Tablet 4 Mg PO PRN TID PRN Metoprolol Tartrate 50 Mg Tablet 50 Mg PO BID Omeprazole 20 Mg Tablet.dr 20 Mg PO DAILY07 Citalopram Hbr (Citalopram Hydrobromide) 10 Mg Tablet 10 Mg PO DAILY Centrum Silver Tablet (Multivits-Min/Fa/Lycopene/Lut) 1 Each Tablet 1 Each PO DAILY Keflex (Cephalexin) 500 Mg Capsule 500 Mg PO Q6HRS Ultram (Tramadol HCl) 50 Mg Tablet 50 Mg PO BID PRN Tapazole (Methimazole) 5 Mg Tablet 5 Mg PO Q8HRS Seroquel (Quetiapine Fumarate) 25 Mg Tablet 25 Mg PO PRN DAILY PRN Seroquel (Quetiapine Fumarate) 25 Mg Tablet 25 Mg PO QHS Tylenol (Acetaminophen) 325 Mg Tablet 650 Mg PO BID Tylenol (Acetaminophen) 325 Mg Tablet 650 Mg PO PRN Q6HRS PRN I have reviewed the current psychotropics carefully including drug interactions. Risk benefit ratio favors no change other than as noted in my dictated progress note. Diagnosis: Problems: (1) Dementia due to Alzheimer's disease (2) Anxiety disorder (3) Dementia in Alzheimer's disease with delusions (4) Dementia in Alzheimer's disease with depression (5) Dementia, vascular, with delusions (6) Dementia, vascular, with depression (7) Impulse control disorder KADEN RIVAS MD May 19, 2018 20:29
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
[2018-05-20 06:34] VITALS: BP 101/57
[2018-05-20] MEDS: LACTOBACILLUS RHAMNOSUS GG 1 CAPSULE. PO SCH ×2 (08:53→19:41)
[2018-05-20] MEDS: CIPROFLOXACIN HCL 500 MG TABLET PO SCH (08:53)
[2018-05-20] MEDS: ACETAMINOPHEN 325 MG TABLET PO SCH ×2 (08:53→19:44)
[2018-05-20] MEDS: MULTIVITAMIN with MINERAL TABLET. PO SCH (08:54)
[2018-05-20] MEDS: CITALOPRAM 10 MG TABLET. PO SCH (08:54)
[2018-05-20] MEDS: DOCUSATE SODIUM 100 MG CAPSULE PO SCH ×2 (08:54→08:58)
[2018-05-20] MEDS: PANTOPRAZOLE 40 MG TABLET. PO SCH (08:54)
[2018-05-20] MEDS: METOPROLOL TART IMMED RELEASE 50 MG TABLET PO SCH ×2 (08:54→19:44)
[2018-05-20] MEDS: QUEtiapine 25 MG TABLET. PO SCH ×3 (08:55→18:10)
[2018-05-20] MEDS: LOPERAMIDE 2 MG CAPSULE PO PRN ×2 (08:55→19:46)
[2018-05-20] MEDS: NYSTATIN TOPICAL POWDER 15GM BOTTLE. TP SCH ×2 (08:57→19:45)
--- NOTE | 2018-05-20 14:56 | PN ---
DATE: 05/19/2018 This is a late entry 05/19/2018, covers elements not covered in my initial note. SUBJECTIVE: I met with the patient in the evening. The patient slept 7 hours previous evening, had a good night, but morning of 05/19/2018, she was quite confused, had fecal matter on her hands and pants. When staff attempted to assist her with changing her, she was hitting, biting, kicking, quite out of control, unmanageable, disruptive. She was placed in ____. She is resistive to medications and confused. REVIEW OF SYSTEMS: No CV, , pulmonary, eye, ENT system symptoms on review. Reliability poor. MENTAL STATUS EXAM: Oriented to herself. Insight, judgment, recent and remote memory, attention, concentration, fund of knowledge poor, consistent with her diagnosis mentioned in my initial note. IMPRESSION: Major neurocognitive disorder, Alzheimer, vascular with delusion, depression, behavioral disturbance; anxiety disorder, unspecified; impulse control disorder, unspecified. PLAN: Continue psychotropics from initial note. Seroquel 25 t.i.d., Remeron 15 mg at bedtime, Zyprexa p.r.n., Celexa 10 mg a day, trazodone 50 at bedtime may repeat x 1. May need to increase Seroquel or add Depakote as a mood stabilizer. KADEN RIVAS MD DR: ZAHRA/marian JOB#: [id number] / [id number]
[2018-05-20 16:53] VITALS: BP 109/63
[2018-05-20] MEDS: traZODone 50 MG TABLET. PO SCH (19:41)
[2018-05-20] MEDS: MIRTAZAPINE 15 MG TABLET PO SCH (19:44)
--- NOTE | 2018-05-20 21:01 | PDOC ---
Exam Note: [place] Note: Please also refer to the separate dictated note~for this date of service dictated separately.~Patient seen individually. Discussed the patient with Nursing staff reviewed the chart.~Reviewed interim history and current functioning. Reviewed vital signs,~Labs/ Radiology~and current medications noted below. Continue current treatment with the changes noted in the dictated addendum note Assessment: Vital Signs: Vital Signs Date Time Temp Pulse Resp B/P (MAP) Pulse Ox O2 Delivery O2 Flow Rate FiO2 05/20/18 19:44 76 109/63 05/20/18 16:53 97.3 16 97 05/19/18 06:08 Room Air I&O Intake and Output 05/20/18 06:59 Intake Total 580 ml Balance 580 ml Intake Oral 580 ml # Voids 1 Current Medications: Meds: Current Medications Ceftriaxone Sodium 1 gm/ Sodium Chloride 50 ml @ 100 mls/hr 1X ONCE IV ; Start 05/03/18 at 22:30; Stop 05/03/18 at 22:30; Status DC Ceftriaxone Sodium (Rocephin Im) 1 gm 1X ONCE IM Last administered on at 22:46; Start 05/03/18 at 22:45; Stop 05/03/18 at 23:54; Status DC Ceftriaxone Sodium (Rocephin) 1 gm STK-MED ONCE IV ; Start 05/03/18 at 22:37; Stop 05/03/18 at 22:38; Status DC Acetaminophen (Tylenol) 650 mg PRN Q6HRS PRN PO PAIN / TEMP; Start 05/03/18 at 23:15; Status Cancel Multi-Ingredient Ointment (Analgesic [place]) 1 bessy PRN QID PRN TP MUSCLE PAIN; Start 05/03/18 at 23:15 Al Hydroxide/Mg Hydroxide (Mylanta Plus Xs) 15 ml PRN AFTMEALHC PRN PO DYSPEPSIA; Start 05/03/18 at 23:15 Magnesium Hydroxide (Milk Of Magnesia) 2,400 mg PRN QHS PRN PO CONSTIPATION; Start 05/03/18 at 23:15 Citalopram Hydrobromide (CeleXA) 10 mg DAILY PO Last administered on 05/20/18at 08:54; Start 05/04/18 at 09:00 Non-Formulary Medication (Quetiapine Fumarate (Seroquel)) 25 mg PRN DAILY PRN PO AGITATION; Start 05/04/18 at 00:15; Status UNV Non-Formulary Medication (Quetiapine Fumarate (Seroquel)) 25 mg QHS PO ; Start 05/04/18 at 21:00; Status UNV Acetaminophen (Tylenol) 650 mg BID PO Last administered on 05/20/18at 19:44; Start 05/04/18 at 09:00 Acetaminophen (Tylenol) 650 mg PRN Q6HRS PRN PO PAIN; Start 05/04/18 at 00:15 Hydrocortisone (Proctosol-Hc) 1 bessy PRN BID PRN RC RECTAL PAIN; Start 05/04/18 at 00:15 Tramadol HCl (Ultram) 50 mg PRN BID PRN PO PAIN Last administered on 05/13/18at 21:26; Start 05/04/18 at 00:15 Non-Formulary Medication (Cephalexin (Keflex)) 500 mg Q6HRS PO ; Start 05/04/18 at 06:00; Status UNV Non-Formulary Medication (Methimazole (Tapazole)) 5 mg Q8HRS PO ; Start 05/04/18 at 06:00; Status UNV Non-Formulary Medication (Metoprolol Tartrate ) 50 mg BID PO ; Start 05/04/18 at 09:00; Stop 05/04/18 at 09:00; Status Cancel Non-Formulary Medication (Multivits-Min/ Fa/Lycopene/Lut (Centrum Silver Tablet) ) 1 each DAILY PO ; Start 05/04/18 at 09:00; Stop 05/04/18 at 09:00; Status DC Non-Formulary Medication (Omeprazole ) 20 mg DAILY07 PO ; Start 05/04/18 at 07:00 ; Stop 05/04/18 at 07:00; Status DC Non-Formulary Medication (Ondansetron Hcl ) 4 mg PRN TID PRN PO NAUSEA/VOMITING ; Start 05/04/18 at 00:15; Status UNV Cephalexin HCl (Keflex) 500 mg Q6HRS PO Last administered on 05/06/18at 17:55; Start 05/04/18 at 06:00; Stop 05/06/18 at 19:00; Status DC Methimazole (Tapazole) 5 mg Q8HRS PO Last administered on 05/20/18 19:45; Start 05/04/18 at 06:00 Quetiapine Fumarate (SEROquel) 25 mg HS PO Last administered on 05/08/18 20:45 ; Start 05/04/18 at 21:00; Stop 05/09/18 at 18:48; Status DC Quetiapine Fumarate (SEROquel) 25 mg PRN DAILY PRN PO ANXIETY / AGITATION Last administered on 05/05/18 22:11; Start 05/04/18 at 02:30; Stop 05/06/18 at 18:40; Status DC Ondansetron HCl (Zofran Odt) 4 mg PRN TID PRN PO NAUSEA/VOMITING; Start at 02:30 Metoprolol Tartrate (Lopressor) 50 mg BID PO Last administered on 05/20/18 19: 44; Start 05/04/18 at 09:00 Multivitamins/ Calcium (Thera-M Plus) 1 tab DAILY PO Last administered on at 08:54; Start 05/04/18 at 09:00 Pantoprazole Sodium (Protonix) 40 mg DAILYAC PO Last administered on 05/20/18 08:54; Start 05/04/18 at 07:30 Trazodone HCl (Desyrel) 25 mg PRN QHS PRN PO INSOMNIA, MAY REPEAT X1 Last administered on 05/05/18at 22:12; Start 05/04/18 at 19:45; Stop 05/06/18 at 18:40; Status DC Mirtazapine (Remeron) 7.5 mg QHS PO Last administered on 05/07/18 20:57; Start 05/05/18 at 21:00; Stop 05/08/18 at 11:20; Status DC Quetiapine Fumarate (SEROquel) 12.5 mg DAILY PO Last administered on 05/06/18at 11:41; Start 05/06/18 at 09:00; Stop 05/06/18 at 18:40; Status DC Quetiapine Fumarate (SEROquel) 12.5 mg 0900,1700 PO Last administered on 10:35; Start 05/07/18 at 09:00; Stop 05/07/18 at 16:38; Status DC Trazodone HCl (Desyrel) 50 mg PRN QHS PRN PO INSOMNIA, MAY REPEAT X1 Last administered on 05/13/18at 21:25; Start 05/06/18 at 18:45 Trazodone HCl (Desyrel) 50 mg QHS PO Last administered on 05/20/18at 19:41; Start 05/06/18 at 21:00 Olanzapine (ZyPREXA ZYDIS) 2.5 mg PRN Q2HR PRN PO PSYCHOSIS Last administered on 05/18/18at 07:34; Start 05/06/18 at 18:45 Quetiapine Fumarate (SEROquel) 12.5 mg 0900,1300,1700 PO Last administered on 17:27; Start 05/07/18 at 17:00; Stop 05/09/18 at 18:48; Status DC Mirtazapine (Remeron) 15 mg QHS PO Last administered on 05/20/18at 19:44; Start 05/08/18 at 21:00 Loperamide HCl (Imodium) 2 mg PRN QID PRN PO DIARRHEA Last administered on 05/20 19:46; Start 05/08/18 at 16:30 Quetiapine Fumarate (SEROquel) 25 mg 1700,2100 PO Last administered on 17:18; Start 05/09/18 at 21:00; Stop 05/18/18 at 20:07; Status DC Quetiapine Fumarate (SEROquel) 12.5 mg 0900,1300 PO Last administered on at 13:52; Start 05/10/18 at 09:00; Stop 05/10/18 at 19:08; Status DC Quetiapine Fumarate (SEROquel) 12.5 mg DAILY@1300 PO Last administered on at 14:00; Start 05/11/18 at 13:00; Stop 05/12/18 at 18:28; Status DC Quetiapine Fumarate (SEROquel) 25 mg DAILY PO Last administered on 05/18/18 09 :19; Start 05/11/18 at 09:00; Stop 05/18/18 at 20:07; Status DC Nystatin (Nystop) 1 bessy BID TP Last administered on 7/17/18at 19:45; Start 05/11 at 21:00 Docusate Sodium (Colace) 100 mg BID PO Last administered on 05/19/18at 20:20; Start 05/12/18 at 21:00; Stop 05/20/18 at 18:08; Status DC Quetiapine Fumarate (SEROquel) 25 mg DAILY@1300 PO Last administered on at 13:43; Start 05/13/18 at 13:00; Stop 05/14/18 at 19:23; Status DC Ciprofloxacin (Cipro) 500 mg BID PO Last administered on 05/20/18at 08:53; Start 05/13/18 at 10:00; Stop 05/20/18 at 09:59; Status DC Lactobacillus Rhamnosus (Culturelle) 1 cap BID PO Last administered on at 19:41; Start 05/13/18 at 21:00 Quetiapine Fumarate (SEROquel) 25 mg DAILY PO ; Start 05/15/18 at 09:00; Status Cancel Neomycin/ Polymyxin/ Bacitracin (Triple Antibiotic Ointment) 1 pkt 1X ONCE TP Last administered on 05/15/18at 10:15; Start 05/15/18 at 10:15; Stop 05/15/18 at 10:16; Status DC Fluconazole (Diflucan) 100 mg 1X ONCE PO Last administered on 05/15/18at 16:25 ; Start 05/15/18 at 16:00; Stop 05/15/18 at 16:12; Status DC Nystatin (Nystop) 15 bessy STK-MED ONCE TP Last administered on 05/17/18at 17:12; Start 05/10/18 at 14:29; Stop 05/17/18 at 17:07; Status DC Quetiapine Fumarate (SEROquel) 37.5 mg TID@0900,1300,1700 PO Last administered on 05/20/18at 18:10; Start 05/19/18 at 09:00 Active Scripts Active Reported Proctosol-Hc (Hydrocortisone) 28.35 Gm Cream..g. 1 Applic RC BID Proctosol-Hc (Hydrocortisone) 28.35 Gm Cream..g. 1 Applic RC PRN BID PRN Ondansetron Hcl 4 Mg Tablet 4 Mg PO PRN TID PRN Metoprolol Tartrate 50 Mg Tablet 50 Mg PO BID Omeprazole 20 Mg Tablet.dr 20 Mg PO DAILY07 Citalopram Hbr (Citalopram Hydrobromide) 10 Mg Tablet 10 Mg PO DAILY Centrum Silver Tablet (Multivits-Min/Fa/Lycopene/Lut) 1 Each Tablet 1 Each PO DAILY Keflex (Cephalexin) 500 Mg Capsule 500 Mg PO Q6HRS Ultram (Tramadol HCl) 50 Mg Tablet 50 Mg PO BID PRN Tapazole (Methimazole) 5 Mg Tablet 5 Mg PO Q8HRS Seroquel (Quetiapine Fumarate) 25 Mg Tablet 25 Mg PO PRN DAILY PRN Seroquel (Quetiapine Fumarate) 25 Mg Tablet 25 Mg PO QHS Tylenol (Acetaminophen) 325 Mg Tablet 650 Mg PO BID Tylenol (Acetaminophen) 325 Mg Tablet 650 Mg PO PRN Q6HRS PRN I have reviewed the current psychotropics carefully including drug interactions. Risk benefit ratio favors no change other than as noted in my dictated progress note. Diagnosis: Problems: (1) Dementia due to Alzheimer's disease (2) Anxiety disorder (3) Dementia in Alzheimer's disease with delusions (4) Dementia in Alzheimer's disease with depression (5) Dementia, vascular, with delusions (6) Dementia, vascular, with depression (7) Impulse control disorder KADEN RIVAS MD May 20, 2018 21:01
[2018-05-21 06:06] VITALS: BP 112/58
[2018-05-21] MEDS: PANTOPRAZOLE 40 MG TABLET. PO SCH (08:50)
[2018-05-21] MEDS: CITALOPRAM 10 MG TABLET. PO SCH (08:50)
[2018-05-21] MEDS: METOPROLOL TART IMMED RELEASE 50 MG TABLET PO SCH ×2 (08:50→19:45)
[2018-05-21] MEDS: LACTOBACILLUS RHAMNOSUS GG 1 CAPSULE. PO SCH ×2 (08:50→19:44)
[2018-05-21] MEDS: MULTIVITAMIN with MINERAL TABLET. PO SCH (08:50)
[2018-05-21] MEDS: ACETAMINOPHEN 325 MG TABLET PO SCH ×2 (08:50→19:45)
[2018-05-21] MEDS: QUEtiapine 25 MG TABLET. PO SCH ×3 (08:51→18:17)
[2018-05-21] MEDS: NYSTATIN TOPICAL POWDER 15GM BOTTLE. TP SCH ×2 (08:52→19:46)
[2018-05-21 15:54] VITALS: BP 102/70
[2018-05-21] MEDS: traZODone 50 MG TABLET. PO SCH (19:44)
[2018-05-21] MEDS: MIRTAZAPINE 15 MG TABLET PO SCH (19:45)
--- NOTE | 2018-05-21 20:46 | PDOC ---
Exam Note: [place] Note: Please also refer to the separate dictated note~for this date of service dictated separately.~Patient seen individually. Discussed the patient with Nursing staff reviewed the chart.~Reviewed interim history and current functioning. Reviewed vital signs,~Labs/ Radiology~and current medications noted below. Continue current treatment with the changes noted in the dictated addendum note Assessment: Vital Signs: Vital Signs Date Time Temp Pulse Resp B/P (MAP) Pulse Ox O2 Delivery O2 Flow Rate FiO2 05/21/18 19:45 82 102/70 05/21/18 15:54 98.0 18 95 05/19/18 06:08 Room Air I&O Intake and Output 05/21/18 06:59 Intake Total 600 ml Balance 600 ml Intake Oral 600 ml # Voids 1 # Bowel Movements 1 Current Medications: Meds: Current Medications Ceftriaxone Sodium 1 gm/ Sodium Chloride 50 ml @ 100 mls/hr 1X ONCE IV ; Start 05/03/18 at 22:30; Stop 05/03/18 at 22:30; Status DC Ceftriaxone Sodium (Rocephin Im) 1 gm 1X ONCE IM Last administered on at 22:46; Start 05/03/18 at 22:45; Stop 05/03/18 at 23:54; Status DC Ceftriaxone Sodium (Rocephin) 1 gm STK-MED ONCE IV ; Start 05/03/18 at 22:37; Stop 05/03/18 at 22:38; Status DC Acetaminophen (Tylenol) 650 mg PRN Q6HRS PRN PO PAIN / TEMP; Start 05/03/18 at 23:15; Status Cancel Multi-Ingredient Ointment (Analgesic [place]) 1 bessy PRN QID PRN TP MUSCLE PAIN; Start 05/03/18 at 23:15 Al Hydroxide/Mg Hydroxide (Mylanta Plus Xs) 15 ml PRN AFTMEALHC PRN PO DYSPEPSIA; Start 05/03/18 at 23:15 Magnesium Hydroxide (Milk Of Magnesia) 2,400 mg PRN QHS PRN PO CONSTIPATION; Start 05/03/18 at 23:15 Citalopram Hydrobromide (CeleXA) 10 mg DAILY PO Last administered on 05/21/18at 08:50; Start 05/04/18 at 09:00 Non-Formulary Medication (Quetiapine Fumarate (Seroquel)) 25 mg PRN DAILY PRN PO AGITATION; Start 05/04/18 at 00:15; Status UNV Non-Formulary Medication (Quetiapine Fumarate (Seroquel)) 25 mg QHS PO ; Start 05/04/18 at 21:00; Status UNV Acetaminophen (Tylenol) 650 mg BID PO Last administered on 05/21/18at 19:45; Start 05/04/18 at 09:00 Acetaminophen (Tylenol) 650 mg PRN Q6HRS PRN PO PAIN; Start 05/04/18 at 00:15 Hydrocortisone (Proctosol-Hc) 1 bessy PRN BID PRN RC RECTAL PAIN; Start 05/04/18 at 00:15 Tramadol HCl (Ultram) 50 mg PRN BID PRN PO PAIN Last administered on 05/13/18at 21:26; Start 05/04/18 at 00:15 Non-Formulary Medication (Cephalexin (Keflex)) 500 mg Q6HRS PO ; Start 05/04/18 at 06:00; Status UNV Non-Formulary Medication (Methimazole (Tapazole)) 5 mg Q8HRS PO ; Start 05/04/18 at 06:00; Status UNV Non-Formulary Medication (Metoprolol Tartrate ) 50 mg BID PO ; Start 05/04/18 at 09:00; Stop 05/04/18 at 09:00; Status Cancel Non-Formulary Medication (Multivits-Min/ Fa/Lycopene/Lut (Centrum Silver Tablet) ) 1 each DAILY PO ; Start 05/04/18 at 09:00; Stop 05/04/18 at 09:00; Status DC Non-Formulary Medication (Omeprazole ) 20 mg DAILY07 PO ; Start 05/04/18 at 07:00 ; Stop 05/04/18 at 07:00; Status DC Non-Formulary Medication (Ondansetron Hcl ) 4 mg PRN TID PRN PO NAUSEA/VOMITING ; Start 05/04/18 at 00:15; Status UNV Cephalexin HCl (Keflex) 500 mg Q6HRS PO Last administered on 05/06/18at 17:55; Start 05/04/18 at 06:00; Stop 05/06/18 at 19:00; Status DC Methimazole (Tapazole) 5 mg Q8HRS PO Last administered on 05/21/18 19:46; Start 05/04/18 at 06:00 Quetiapine Fumarate (SEROquel) 25 mg HS PO Last administered on 05/08/18 20:45 ; Start 05/04/18 at 21:00; Stop 05/09/18 at 18:48; Status DC Quetiapine Fumarate (SEROquel) 25 mg PRN DAILY PRN PO ANXIETY / AGITATION Last administered on 05/05/18at 22:11; Start 05/04/18 at 02:30; Stop 05/06/18 at 18:40; Status DC Ondansetron HCl (Zofran Odt) 4 mg PRN TID PRN PO NAUSEA/VOMITING; Start at 02:30 Metoprolol Tartrate (Lopressor) 50 mg BID PO Last administered on 05/21/18 08: 50; Start 05/04/18 at 09:00 Multivitamins/ Calcium (Thera-M Plus) 1 tab DAILY PO Last administered on at 08:50; Start 05/04/18 at 09:00 Pantoprazole Sodium (Protonix) 40 mg DAILYAC PO Last administered on 05/21/18 08:50; Start 05/04/18 at 07:30 Trazodone HCl (Desyrel) 25 mg PRN QHS PRN PO INSOMNIA, MAY REPEAT X1 Last administered on 05/05/18at 22:12; Start 05/04/18 at 19:45; Stop 05/06/18 at 18:40; Status DC Mirtazapine (Remeron) 7.5 mg QHS PO Last administered on 05/07/18at 20:57; Start 05/05/18 at 21:00; Stop 05/08/18 at 11:20; Status DC Quetiapine Fumarate (SEROquel) 12.5 mg DAILY PO Last administered on 05/06/18at 11:41; Start 05/06/18 at 09:00; Stop 05/06/18 at 18:40; Status DC Quetiapine Fumarate (SEROquel) 12.5 mg 0900,1700 PO Last administered on at 10:35; Start 05/07/18 at 09:00; Stop 05/07/18 at 16:38; Status DC Trazodone HCl (Desyrel) 50 mg PRN QHS PRN PO INSOMNIA, MAY REPEAT X1 Last administered on 05/13/18at 21:25; Start 05/06/18 at 18:45 Trazodone HCl (Desyrel) 50 mg QHS PO Last administered on 05/21/18at 19:44; Start 05/06/18 at 21:00 Olanzapine (ZyPREXA ZYDIS) 2.5 mg PRN Q2HR PRN PO PSYCHOSIS Last administered on 05/21/18at 18:17; Start 05/06/18 at 18:45 Quetiapine Fumarate (SEROquel) 12.5 mg 0900,1300,1700 PO Last administered on at 17:27; Start 05/07/18 at 17:00; Stop 05/09/18 at 18:48; Status DC Mirtazapine (Remeron) 15 mg QHS PO Last administered on 05/21/18at 19:45; Start 05/08/18 at 21:00 Loperamide HCl (Imodium) 2 mg PRN QID PRN PO DIARRHEA Last administered on 05/20at 19:46; Start 05/08/18 at 16:30 Quetiapine Fumarate (SEROquel) 25 mg 1700,2100 PO Last administered on at 17:18; Start 05/09/18 at 21:00; Stop 05/18/18 at 20:07; Status DC Quetiapine Fumarate (SEROquel) 12.5 mg 0900,1300 PO Last administered on at 13:52; Start 05/10/18 at 09:00; Stop 05/10/18 at 19:08; Status DC Quetiapine Fumarate (SEROquel) 12.5 mg DAILY@1300 PO Last administered on at 14:00; Start 05/11/18 at 13:00; Stop 05/12/18 at 18:28; Status DC Quetiapine Fumarate (SEROquel) 25 mg DAILY PO Last administered on 05/18/18at 09 :19; Start 05/11/18 at 09:00; Stop 05/18/18 at 20:07; Status DC Nystatin (Nystop) 1 bessy BID TP Last administered on 05/21/18at 19:46; Start 05/11 at 21:00 Docusate Sodium (Colace) 100 mg BID PO Last administered on 05/19/18at 20:20; Start 05/12/18 at 21:00; Stop 05/20/18 at 18:08; Status DC Quetiapine Fumarate (SEROquel) 25 mg DAILY@1300 PO Last administered on at 13:43; Start 05/13/18 at 13:00; Stop 05/14/18 at 19:23; Status DC Ciprofloxacin (Cipro) 500 mg BID PO Last administered on 05/20/18at 08:53; Start 05/13/18 at 10:00; Stop 05/20/18 at 09:59; Status DC Lactobacillus Rhamnosus (Culturelle) 1 cap BID PO Last administered on at 19:44; Start 05/13/18 at 21:00 Quetiapine Fumarate (SEROquel) 25 mg DAILY PO ; Start 05/15/18 at 09:00; Status Cancel Neomycin/ Polymyxin/ Bacitracin (Triple Antibiotic Ointment) 1 pkt 1X ONCE TP Last administered on 05/15/18at 10:15; Start 05/15/18 at 10:15; Stop 05/15/18 at 10:16; Status DC Fluconazole (Diflucan) 100 mg 1X ONCE PO Last administered on 05/15/18at 16:25 ; Start 05/15/18 at 16:00; Stop 05/15/18 at 16:12; Status DC Nystatin (Nystop) 15 bessy STK-MED ONCE TP Last administered on 05/17/18at 17:12; Start 05/10/18 at 14:29; Stop 05/17/18 at 17:07; Status DC Quetiapine Fumarate (SEROquel) 37.5 mg TID@0900,1300,1700 PO Last administered on 05/21/18at 18:17; Start 05/19/18 at 09:00 Divalproex Sodium (Depakote Sprinkles) 125 mg BID@0900,1700 PO ; Start 05/22/18 at 09:00 Active Scripts Active Reported Proctosol-Hc (Hydrocortisone) 28.35 Gm Cream..g. 1 Applic RC BID Proctosol-Hc (Hydrocortisone) 28.35 Gm Cream..g. 1 Applic RC PRN BID PRN Ondansetron Hcl 4 Mg Tablet 4 Mg PO PRN TID PRN Metoprolol Tartrate 50 Mg Tablet 50 Mg PO BID Omeprazole 20 Mg Tablet.dr 20 Mg PO DAILY07 Citalopram Hbr (Citalopram Hydrobromide) 10 Mg Tablet 10 Mg PO DAILY Centrum Silver Tablet (Multivits-Min/Fa/Lycopene/Lut) 1 Each Tablet 1 Each PO DAILY Keflex (Cephalexin) 500 Mg Capsule 500 Mg PO Q6HRS Ultram (Tramadol HCl) 50 Mg Tablet 50 Mg PO BID PRN Tapazole (Methimazole) 5 Mg Tablet 5 Mg PO Q8HRS Seroquel (Quetiapine Fumarate) 25 Mg Tablet 25 Mg PO PRN DAILY PRN Seroquel (Quetiapine Fumarate) 25 Mg Tablet 25 Mg PO QHS Tylenol (Acetaminophen) 325 Mg Tablet 650 Mg PO BID Tylenol (Acetaminophen) 325 Mg Tablet 650 Mg PO PRN Q6HRS PRN I have reviewed the current psychotropics carefully including drug interactions. Risk benefit ratio favors no change other than as noted in my dictated progress note. Diagnosis: Problems: (1) Dementia due to Alzheimer's disease (2) Anxiety disorder (3) Dementia in Alzheimer's disease with delusions (4) Dementia in Alzheimer's disease with depression (5) Dementia, vascular, with delusions (6) Dementia, vascular, with depression (7) Impulse control disorder KADEN RIVAS MD May 21, 2018 20:46
--- NOTE | 2018-05-21 22:23 | PN ---
DATE: 05/20/2018 PSYCHIATRIC PROGRESS NOTE This is a late entry 05/20/2018, covers elements not covered in my initial note. SUBJECTIVE: I met with the patient in the evening. The patient slept 7-1/4 hours previous evening. She has had some watery diarrhea, confused, but less aggressive. REVIEW OF SYSTEMS: No CV, , pulmonary, eye, ENT system symptoms on review other than above. Reliability poor. MENTAL STATUS EXAM: Oriented to herself. Insight, judgment, recent and remote memory, attention, concentration, fund of knowledge poor, consistent with her diagnoses mentioned in my initial note. PLAN: No change from my initial note in her current psychotropics. KADEN RIVAS MD DR: ZAHRA/marian JOB#: [id number] / [id number]
[2018-05-22 05:42] VITALS: BP 105/60
[2018-05-22] MEDS: PANTOPRAZOLE 40 MG TABLET. PO SCH (08:27)
[2018-05-22] MEDS: MULTIVITAMIN with MINERAL TABLET. PO SCH (08:28)
[2018-05-22] MEDS: ACETAMINOPHEN 325 MG TABLET PO SCH ×2 (08:28→19:47)
[2018-05-22] MEDS: QUEtiapine 25 MG TABLET. PO SCH ×3 (08:28→17:28)
[2018-05-22] MEDS: CITALOPRAM 10 MG TABLET. PO SCH (08:28)
[2018-05-22] MEDS: METOPROLOL TART IMMED RELEASE 50 MG TABLET PO SCH ×2 (08:29→19:46)
[2018-05-22] MEDS: DIVALPROEX 125 MG CAP.SPRINK PO SCH ×2 (08:29→17:28)
[2018-05-22] MEDS: LACTOBACILLUS RHAMNOSUS GG 1 CAPSULE. PO SCH ×2 (08:29→19:46)
[2018-05-22] MEDS: NYSTATIN TOPICAL POWDER 15GM BOTTLE. TP SCH ×2 (08:30→19:46)
[2018-05-22 16:19] VITALS: BP 93/65
[2018-05-22 19:40] VITALS: BP 117/76
[2018-05-22] MEDS: MIRTAZAPINE 15 MG TABLET PO SCH (19:46)
[2018-05-22] MEDS: traZODone 50 MG TABLET. PO SCH (19:46)
--- NOTE | 2018-05-22 20:42 | PDOC ---
Exam Note: [place] Note: Please also refer to the separate dictated note~for this date of service dictated separately.~Patient seen individually. Discussed the patient with Nursing staff reviewed the chart.~Reviewed interim history and current functioning. Reviewed vital signs,~Labs/ Radiology~and current medications noted below. Continue current treatment with the changes noted in the dictated addendum note Assessment: Vital Signs: Vital Signs Date Time Temp Pulse Resp B/P (MAP) Pulse Ox O2 Delivery O2 Flow Rate FiO2 05/22/18 19:46 76 117/76 05/22/18 16:19 99.1 20 96 Room Air I&O Intake and Output 05/22/18 06:59 Intake Total 360 ml Balance 360 ml Intake Oral 360 ml # Voids 1 # Bowel Movements 1 Current Medications: Meds: Current Medications Ceftriaxone Sodium 1 gm/ Sodium Chloride 50 ml @ 100 mls/hr 1X ONCE IV ; Start 05/03/18 at 22:30; Stop 05/03/18 at 22:30; Status DC Ceftriaxone Sodium (Rocephin Im) 1 gm 1X ONCE IM Last administered on at 22:46; Start 05/03/18 at 22:45; Stop 05/03/18 at 23:54; Status DC Ceftriaxone Sodium (Rocephin) 1 gm STK-MED ONCE IV ; Start 05/03/18 at 22:37; Stop 05/03/18 at 22:38; Status DC Acetaminophen (Tylenol) 650 mg PRN Q6HRS PRN PO PAIN / TEMP; Start 05/03/18 at 23:15; Status Cancel Multi-Ingredient Ointment (Analgesic [place]) 1 bessy PRN QID PRN TP MUSCLE PAIN; Start 05/03/18 at 23:15 Al Hydroxide/Mg Hydroxide (Mylanta Plus Xs) 15 ml PRN AFTMEALHC PRN PO DYSPEPSIA; Start 05/03/18 at 23:15 Magnesium Hydroxide (Milk Of Magnesia) 2,400 mg PRN QHS PRN PO CONSTIPATION; Start 05/03/18 at 23:15 Citalopram Hydrobromide (CeleXA) 10 mg DAILY PO Last administered on 05/22/18at 08:28; Start 05/04/18 at 09:00 Non-Formulary Medication (Quetiapine Fumarate (Seroquel)) 25 mg PRN DAILY PRN PO AGITATION; Start 05/04/18 at 00:15; Status UNV Non-Formulary Medication (Quetiapine Fumarate (Seroquel)) 25 mg QHS PO ; Start 05/04/18 at 21:00; Status UNV Acetaminophen (Tylenol) 650 mg BID PO Last administered on 05/22/18at 19:47; Start 05/04/18 at 09:00 Acetaminophen (Tylenol) 650 mg PRN Q6HRS PRN PO PAIN; Start 05/04/18 at 00:15 Hydrocortisone (Proctosol-Hc) 1 bessy PRN BID PRN RC RECTAL PAIN; Start 05/04/18 at 00:15 Tramadol HCl (Ultram) 50 mg PRN BID PRN PO PAIN Last administered on 05/13/18at 21:26; Start 05/04/18 at 00:15 Non-Formulary Medication (Cephalexin (Keflex)) 500 mg Q6HRS PO ; Start 05/04/18 at 06:00; Status UNV Non-Formulary Medication (Methimazole (Tapazole)) 5 mg Q8HRS PO ; Start 05/04/18 at 06:00; Status UNV Non-Formulary Medication (Metoprolol Tartrate ) 50 mg BID PO ; Start 05/04/18 at 09:00; Stop 05/04/18 at 09:00; Status Cancel Non-Formulary Medication (Multivits-Min/ Fa/Lycopene/Lut (Centrum Silver Tablet) ) 1 each DAILY PO ; Start 05/04/18 at 09:00; Stop 05/04/18 at 09:00; Status DC Non-Formulary Medication (Omeprazole ) 20 mg DAILY07 PO ; Start 05/04/18 at 07:00 ; Stop 05/04/18 at 07:00; Status DC Non-Formulary Medication (Ondansetron Hcl ) 4 mg PRN TID PRN PO NAUSEA/VOMITING ; Start 05/04/18 at 00:15; Status UNV Cephalexin HCl (Keflex) 500 mg Q6HRS PO Last administered on 05/06/18at 17:55; Start 05/04/18 at 06:00; Stop 05/06/18 at 19:00; Status DC Methimazole (Tapazole) 5 mg Q8HRS PO Last administered on 05/22/18 19:49; Start 05/04/18 at 06:00 Quetiapine Fumarate (SEROquel) 25 mg HS PO Last administered on 05/08/18 20:45 ; Start 05/04/18 at 21:00; Stop 05/09/18 at 18:48; Status DC Quetiapine Fumarate (SEROquel) 25 mg PRN DAILY PRN PO ANXIETY / AGITATION Last administered on 05/05/18at 22:11; Start 05/04/18 at 02:30; Stop 05/06/18 at 18:40; Status DC Ondansetron HCl (Zofran Odt) 4 mg PRN TID PRN PO NAUSEA/VOMITING; Start at 02:30 Metoprolol Tartrate (Lopressor) 50 mg BID PO Last administered on 05/22/18at 19: 46; Start 05/04/18 at 09:00 Multivitamins/ Calcium (Thera-M Plus) 1 tab DAILY PO Last administered on at 08:28; Start 05/04/18 at 09:00 Pantoprazole Sodium (Protonix) 40 mg DAILYAC PO Last administered on 05/22/18 08:27; Start 05/04/18 at 07:30 Trazodone HCl (Desyrel) 25 mg PRN QHS PRN PO INSOMNIA, MAY REPEAT X1 Last administered on 05/05/18at 22:12; Start 05/04/18 at 19:45; Stop 05/06/18 at 18:40; Status DC Mirtazapine (Remeron) 7.5 mg QHS PO Last administered on 05/07/18at 20:57; Start 05/05/18 at 21:00; Stop 05/08/18 at 11:20; Status DC Quetiapine Fumarate (SEROquel) 12.5 mg DAILY PO Last administered on 05/06/18at 11:41; Start 05/06/18 at 09:00; Stop 05/06/18 at 18:40; Status DC Quetiapine Fumarate (SEROquel) 12.5 mg 0900,1700 PO Last administered on at 10:35; Start 05/07/18 at 09:00; Stop 05/07/18 at 16:38; Status DC Trazodone HCl (Desyrel) 50 mg PRN QHS PRN PO INSOMNIA, MAY REPEAT X1 Last administered on 05/13/18at 21:25; Start 05/06/18 at 18:45 Trazodone HCl (Desyrel) 50 mg QHS PO Last administered on 05/22/18at 19:46; Start 05/06/18 at 21:00 Olanzapine (ZyPREXA ZYDIS) 2.5 mg PRN Q2HR PRN PO PSYCHOSIS Last administered on 05/21/18at 18:17; Start 05/06/18 at 18:45 Quetiapine Fumarate (SEROquel) 12.5 mg 0900,1300,1700 PO Last administered on at 17:27; Start 05/07/18 at 17:00; Stop 05/09/18 at 18:48; Status DC Mirtazapine (Remeron) 15 mg QHS PO Last administered on 05/22/18at 19:46; Start 05/08/18 at 21:00 Loperamide HCl (Imodium) 2 mg PRN QID PRN PO DIARRHEA Last administered on 05/20at 19:46; Start 05/08/18 at 16:30 Quetiapine Fumarate (SEROquel) 25 mg 1700,2100 PO Last administered on 17:18; Start 05/09/18 at 21:00; Stop 05/18/18 at 20:07; Status DC Quetiapine Fumarate (SEROquel) 12.5 mg 0900,1300 PO Last administered on at 13:52; Start 05/10/18 at 09:00; Stop 05/10/18 at 19:08; Status DC Quetiapine Fumarate (SEROquel) 12.5 mg DAILY@1300 PO Last administered on at 14:00; Start 05/11/18 at 13:00; Stop 05/12/18 at 18:28; Status DC Quetiapine Fumarate (SEROquel) 25 mg DAILY PO Last administered on 05/18/18 09 :19; Start 05/11/18 at 09:00; Stop 05/18/18 at 20:07; Status DC Nystatin (Nystop) 1 bessy BID TP Last administered on 05/22/18at 19:46; Start 05/11 at 21:00 Docusate Sodium (Colace) 100 mg BID PO Last administered on 05/19/18at 20:20; Start 05/12/18 at 21:00; Stop 05/20/18 at 18:08; Status DC Quetiapine Fumarate (SEROquel) 25 mg DAILY@1300 PO Last administered on at 13:43; Start 05/13/18 at 13:00; Stop 05/14/18 at 19:23; Status DC Ciprofloxacin (Cipro) 500 mg BID PO Last administered on 05/20/18at 08:53; Start 05/13/18 at 10:00; Stop 05/20/18 at 09:59; Status DC Lactobacillus Rhamnosus (Culturelle) 1 cap BID PO Last administered on at 19:46; Start 05/13/18 at 21:00 Quetiapine Fumarate (SEROquel) 25 mg DAILY PO ; Start 05/15/18 at 09:00; Status Cancel Neomycin/ Polymyxin/ Bacitracin (Triple Antibiotic Ointment) 1 pkt 1X ONCE TP Last administered on 05/15/18at 10:15; Start 05/15/18 at 10:15; Stop 05/15/18 at 10:16; Status DC Fluconazole (Diflucan) 100 mg 1X ONCE PO Last administered on 05/15/18at 16:25 ; Start 05/15/18 at 16:00; Stop 05/15/18 at 16:12; Status DC Nystatin (Nystop) 15 bessy STK-MED ONCE TP Last administered on 05/17/18at 17:12; Start 05/10/18 at 14:29; Stop 05/17/18 at 17:07; Status DC Quetiapine Fumarate (SEROquel) 37.5 mg TID@0900,1300,1700 PO Last administered on 05/22/18at 17:28; Start 05/19/18 at 09:00 Divalproex Sodium (Depakote Sprinkles) 125 mg BID@0900,1700 PO Last administered on 05/22/18at 17:28; Start 05/22/18 at 09:00 Active Scripts Active Reported Proctosol-Hc (Hydrocortisone) 28.35 Gm Cream..g. 1 Applic RC BID Proctosol-Hc (Hydrocortisone) 28.35 Gm Cream..g. 1 Applic RC PRN BID PRN Ondansetron Hcl 4 Mg Tablet 4 Mg PO PRN TID PRN Metoprolol Tartrate 50 Mg Tablet 50 Mg PO BID Omeprazole 20 Mg Tablet.dr 20 Mg PO DAILY07 Citalopram Hbr (Citalopram Hydrobromide) 10 Mg Tablet 10 Mg PO DAILY Centrum Silver Tablet (Multivits-Min/Fa/Lycopene/Lut) 1 Each Tablet 1 Each PO DAILY Keflex (Cephalexin) 500 Mg Capsule 500 Mg PO Q6HRS Ultram (Tramadol HCl) 50 Mg Tablet 50 Mg PO BID PRN Tapazole (Methimazole) 5 Mg Tablet 5 Mg PO Q8HRS Seroquel (Quetiapine Fumarate) 25 Mg Tablet 25 Mg PO PRN DAILY PRN Seroquel (Quetiapine Fumarate) 25 Mg Tablet 25 Mg PO QHS Tylenol (Acetaminophen) 325 Mg Tablet 650 Mg PO BID Tylenol (Acetaminophen) 325 Mg Tablet 650 Mg PO PRN Q6HRS PRN I have reviewed the current psychotropics carefully including drug interactions. Risk benefit ratio favors no change other than as noted in my dictated progress note. Diagnosis: Problems: (1) Dementia due to Alzheimer's disease (2) Anxiety disorder (3) Dementia in Alzheimer's disease with delusions (4) Dementia in Alzheimer's disease with depression (5) Dementia, vascular, with delusions (6) Dementia, vascular, with depression (7) Impulse control disorder KADEN RIVAS MD May 22, 2018 20:42
[2018-05-23 06:25] VITALS: BP 122/83
[2018-05-23] MEDS: LACTOBACILLUS RHAMNOSUS GG 1 CAPSULE. PO SCH ×2 (07:57→19:37)
[2018-05-23] MEDS: CITALOPRAM 10 MG TABLET. PO SCH (07:57)
[2018-05-23] MEDS: MULTIVITAMIN with MINERAL TABLET. PO SCH (07:57)
[2018-05-23] MEDS: PANTOPRAZOLE 40 MG TABLET. PO SCH (07:57)
[2018-05-23] MEDS: ACETAMINOPHEN 325 MG TABLET PO SCH ×2 (07:58→19:36)
[2018-05-23] MEDS: DIVALPROEX 125 MG CAP.SPRINK PO SCH ×2 (07:58→17:03)
[2018-05-23] MEDS: QUEtiapine 25 MG TABLET. PO SCH ×3 (07:58→17:04)
[2018-05-23] MEDS: METOPROLOL TART IMMED RELEASE 50 MG TABLET PO SCH ×2 (07:58→19:36)
[2018-05-23] MEDS: NYSTATIN TOPICAL POWDER 15GM BOTTLE. TP SCH ×2 (07:59→19:37)
[2018-05-23] MEDS: LOPERAMIDE 2 MG CAPSULE PO PRN ×2 (08:49→17:13)
[2018-05-23 15:57] VITALS: BP 103/69
[2018-05-23] MEDS: traZODone 50 MG TABLET. PO SCH (19:37)
[2018-05-23] MEDS: MIRTAZAPINE 15 MG TABLET PO SCH (19:37)
--- NOTE | 2018-05-23 20:50 | PDOC ---
Exam Note: [place] Note: Please also refer to the separate dictated note~for this date of service dictated separately.~Patient seen individually. Discussed the patient with Nursing staff reviewed the chart.~Reviewed interim history and current functioning. Reviewed vital signs,~Labs/ Radiology~and current medications noted below. Continue current treatment with the changes noted in the dictated addendum note Assessment: Vital Signs: Vital Signs Date Time Temp Pulse Resp B/P (MAP) Pulse Ox O2 Delivery O2 Flow Rate FiO2 05/23/18 19:36 83 103/69 05/23/18 15:57 97.5 18 93 05/22/18 16:19 Room Air I&O Intake and Output 05/23/18 07:00 Intake Total 360 ml Balance 360 ml Intake Oral 360 ml # Voids 1 Current Medications: Meds: Current Medications Ceftriaxone Sodium 1 gm/ Sodium Chloride 50 ml @ 100 mls/hr 1X ONCE IV ; Start 05/03/18 at 22:30; Stop 05/03/18 at 22:30; Status DC Ceftriaxone Sodium (Rocephin Im) 1 gm 1X ONCE IM Last administered on at 22:46; Start 05/03/18 at 22:45; Stop 05/03/18 at 23:54; Status DC Ceftriaxone Sodium (Rocephin) 1 gm STK-MED ONCE IV ; Start 05/03/18 at 22:37; Stop 05/03/18 at 22:38; Status DC Acetaminophen (Tylenol) 650 mg PRN Q6HRS PRN PO PAIN / TEMP; Start 05/03/18 at 23:15; Status Cancel Multi-Ingredient Ointment (Analgesic [place]) 1 bessy PRN QID PRN TP MUSCLE PAIN; Start 05/03/18 at 23:15 Al Hydroxide/Mg Hydroxide (Mylanta Plus Xs) 15 ml PRN AFTMEALHC PRN PO DYSPEPSIA; Start 05/03/18 at 23:15 Magnesium Hydroxide (Milk Of Magnesia) 2,400 mg PRN QHS PRN PO CONSTIPATION; Start 05/03/18 at 23:15 Citalopram Hydrobromide (CeleXA) 10 mg DAILY PO Last administered on 05/23/18at 07:57; Start 05/04/18 at 09:00 Non-Formulary Medication (Quetiapine Fumarate (Seroquel)) 25 mg PRN DAILY PRN PO AGITATION; Start 05/04/18 at 00:15; Status UNV Non-Formulary Medication (Quetiapine Fumarate (Seroquel)) 25 mg QHS PO ; Start 05/04/18 at 21:00; Status UNV Acetaminophen (Tylenol) 650 mg BID PO Last administered on 05/23/18at 19:36; Start 05/04/18 at 09:00 Acetaminophen (Tylenol) 650 mg PRN Q6HRS PRN PO PAIN; Start 05/04/18 at 00:15 Hydrocortisone (Proctosol-Hc) 1 bessy PRN BID PRN RC RECTAL PAIN; Start 05/04/18 at 00:15 Tramadol HCl (Ultram) 50 mg PRN BID PRN PO PAIN Last administered on 05/13/18at 21:26; Start 05/04/18 at 00:15 Non-Formulary Medication (Cephalexin (Keflex)) 500 mg Q6HRS PO ; Start 05/04/18 at 06:00; Status UNV Non-Formulary Medication (Methimazole (Tapazole)) 5 mg Q8HRS PO ; Start 05/04/18 at 06:00; Status UNV Non-Formulary Medication (Metoprolol Tartrate ) 50 mg BID PO ; Start 05/04/18 at 09:00; Stop 05/04/18 at 09:00; Status Cancel Non-Formulary Medication (Multivits-Min/ Fa/Lycopene/Lut (Centrum Silver Tablet) ) 1 each DAILY PO ; Start 05/04/18 at 09:00; Stop 05/04/18 at 09:00; Status DC Non-Formulary Medication (Omeprazole ) 20 mg DAILY07 PO ; Start 05/04/18 at 07:00 ; Stop 05/04/18 at 07:00; Status DC Non-Formulary Medication (Ondansetron Hcl ) 4 mg PRN TID PRN PO NAUSEA/VOMITING ; Start 05/04/18 at 00:15; Status UNV Cephalexin HCl (Keflex) 500 mg Q6HRS PO Last administered on 05/06/18at 17:55; Start 05/04/18 at 06:00; Stop 05/06/18 at 19:00; Status DC Methimazole (Tapazole) 5 mg Q8HRS PO Last administered on 05/23/18 19:37; Start 05/04/18 at 06:00 Quetiapine Fumarate (SEROquel) 25 mg HS PO Last administered on 05/08/18 20:45 ; Start 05/04/18 at 21:00; Stop 05/09/18 at 18:48; Status DC Quetiapine Fumarate (SEROquel) 25 mg PRN DAILY PRN PO ANXIETY / AGITATION Last administered on 05/05/18 22:11; Start 05/04/18 at 02:30; Stop 05/06/18 at 18:40; Status DC Ondansetron HCl (Zofran Odt) 4 mg PRN TID PRN PO NAUSEA/VOMITING; Start at 02:30 Metoprolol Tartrate (Lopressor) 50 mg BID PO Last administered on 05/23/18 07: 58; Start 05/04/18 at 09:00 Multivitamins/ Calcium (Thera-M Plus) 1 tab DAILY PO Last administered on 07:57; Start 05/04/18 at 09:00 Pantoprazole Sodium (Protonix) 40 mg DAILYAC PO Last administered on 05/23/18 07:57; Start 05/04/18 at 07:30 Trazodone HCl (Desyrel) 25 mg PRN QHS PRN PO INSOMNIA, MAY REPEAT X1 Last administered on 05/05/18at 22:12; Start 05/04/18 at 19:45; Stop 05/06/18 at 18:40; Status DC Mirtazapine (Remeron) 7.5 mg QHS PO Last administered on 05/07/18 20:57; Start 05/05/18 at 21:00; Stop 05/08/18 at 11:20; Status DC Quetiapine Fumarate (SEROquel) 12.5 mg DAILY PO Last administered on 05/06/18at 11:41; Start 05/06/18 at 09:00; Stop 05/06/18 at 18:40; Status DC Quetiapine Fumarate (SEROquel) 12.5 mg 0900,1700 PO Last administered on 10:35; Start 05/07/18 at 09:00; Stop 05/07/18 at 16:38; Status DC Trazodone HCl (Desyrel) 50 mg PRN QHS PRN PO INSOMNIA, MAY REPEAT X1 Last administered on 05/13/18at 21:25; Start 05/06/18 at 18:45 Trazodone HCl (Desyrel) 50 mg QHS PO Last administered on 05/23/18 19:37; Start 05/06/18 at 21:00 Olanzapine (ZyPREXA ZYDIS) 2.5 mg PRN Q2HR PRN PO PSYCHOSIS Last administered on 05/21/18at 18:17; Start 05/06/18 at 18:45 Quetiapine Fumarate (SEROquel) 12.5 mg 0900,1300,1700 PO Last administered on 17:27; Start 05/07/18 at 17:00; Stop 05/09/18 at 18:48; Status DC Mirtazapine (Remeron) 15 mg QHS PO Last administered on 05/23/18 19:37; Start 05/08/18 at 21:00 Loperamide HCl (Imodium) 2 mg PRN QID PRN PO DIARRHEA Last administered on 05/23 17:13; Start 05/08/18 at 16:30 Quetiapine Fumarate (SEROquel) 25 mg 1700,2100 PO Last administered on 17:18; Start 05/09/18 at 21:00; Stop 05/18/18 at 20:07; Status DC Quetiapine Fumarate (SEROquel) 12.5 mg 0900,1300 PO Last administered on at 13:52; Start 05/10/18 at 09:00; Stop 05/10/18 at 19:08; Status DC Quetiapine Fumarate (SEROquel) 12.5 mg DAILY@1300 PO Last administered on at 14:00; Start 05/11/18 at 13:00; Stop 05/12/18 at 18:28; Status DC Quetiapine Fumarate (SEROquel) 25 mg DAILY PO Last administered on 05/18/18 09 :19; Start 05/11/18 at 09:00; Stop 05/18/18 at 20:07; Status DC Nystatin (Nystop) 1 bessy BID TP Last administered on 7/20/18at 19:37; Start 05/11 at 21:00 Docusate Sodium (Colace) 100 mg BID PO Last administered on 05/19/18at 20:20; Start 05/12/18 at 21:00; Stop 05/20/18 at 18:08; Status DC Quetiapine Fumarate (SEROquel) 25 mg DAILY@1300 PO Last administered on at 13:43; Start 05/13/18 at 13:00; Stop 05/14/18 at 19:23; Status DC Ciprofloxacin (Cipro) 500 mg BID PO Last administered on 05/20/18at 08:53; Start 05/13/18 at 10:00; Stop 05/20/18 at 09:59; Status DC Lactobacillus Rhamnosus (Culturelle) 1 cap BID PO Last administered on at 19:37; Start 05/13/18 at 21:00 Quetiapine Fumarate (SEROquel) 25 mg DAILY PO ; Start 05/15/18 at 09:00; Status Cancel Neomycin/ Polymyxin/ Bacitracin (Triple Antibiotic Ointment) 1 pkt 1X ONCE TP Last administered on 05/15/18at 10:15; Start 05/15/18 at 10:15; Stop 05/15/18 at 10:16; Status DC Fluconazole (Diflucan) 100 mg 1X ONCE PO Last administered on 05/15/18at 16:25 ; Start 05/15/18 at 16:00; Stop 05/15/18 at 16:12; Status DC Nystatin (Nystop) 15 bessy STK-MED ONCE TP Last administered on 05/17/18at 17:12; Start 05/10/18 at 14:29; Stop 05/17/18 at 17:07; Status DC Quetiapine Fumarate (SEROquel) 37.5 mg TID@0900,1300,1700 PO Last administered on 05/23/18at 17:04; Start 05/19/18 at 09:00 Divalproex Sodium (Depakote Sprinkles) 125 mg BID@0900,1700 PO Last administered on 05/23/18at 17:03; Start 05/22/18 at 09:00 Active Scripts Active Reported Proctosol-Hc (Hydrocortisone) 28.35 Gm Cream..g. 1 Applic RC BID Proctosol-Hc (Hydrocortisone) 28.35 Gm Cream..g. 1 Applic RC PRN BID PRN Ondansetron Hcl 4 Mg Tablet 4 Mg PO PRN TID PRN Metoprolol Tartrate 50 Mg Tablet 50 Mg PO BID Omeprazole 20 Mg Tablet.dr 20 Mg PO DAILY07 Citalopram Hbr (Citalopram Hydrobromide) 10 Mg Tablet 10 Mg PO DAILY Centrum Silver Tablet (Multivits-Min/Fa/Lycopene/Lut) 1 Each Tablet 1 Each PO DAILY Keflex (Cephalexin) 500 Mg Capsule 500 Mg PO Q6HRS Ultram (Tramadol HCl) 50 Mg Tablet 50 Mg PO BID PRN Tapazole (Methimazole) 5 Mg Tablet 5 Mg PO Q8HRS Seroquel (Quetiapine Fumarate) 25 Mg Tablet 25 Mg PO PRN DAILY PRN Seroquel (Quetiapine Fumarate) 25 Mg Tablet 25 Mg PO QHS Tylenol (Acetaminophen) 325 Mg Tablet 650 Mg PO BID Tylenol (Acetaminophen) 325 Mg Tablet 650 Mg PO PRN Q6HRS PRN I have reviewed the current psychotropics carefully including drug interactions. Risk benefit ratio favors no change other than as noted in my dictated progress note. Diagnosis: Problems: (1) Dementia due to Alzheimer's disease (2) Anxiety disorder (3) Dementia in Alzheimer's disease with delusions (4) Dementia in Alzheimer's disease with depression (5) Dementia, vascular, with delusions (6) Dementia, vascular, with depression (7) Impulse control disorder KADEN RIVAS MD May 23, 2018 20:50
--- NOTE | 2018-05-23 23:58 | PN ---
DATE: 05/22/2018 This is a late entry for 05/22/2018 covers elements not covered in my initial note. SUBJECTIVE: I met with the patient in the evening and staffed at a treatment team meeting with the entire team in the morning and the patient's brother, Balaji, attended the conference. The patient has had some diarrhea. C. diff is being checked. She was agitated in the evening with another patient, takes meds in ice-cream, sleeping average 6-1/2 hours, slept 7-1/2 hours previous evening. REVIEW OF SYSTEMS: No CV, , pulmonary, eye, ENT system symptoms on review other than the diarrhea. MENTAL STATUS EXAM: Oriented to herself. Insight, judgment, recent and remote memory, attention, concentration, fund of knowledge poor, consistent with her diagnosis mentioned in my initial note. PLAN: Continue psychotropics from initial note. MAN Tosha RIVAS MD DR: ZAHRA/marian JOB#: [id number] / [id number]
--- NOTE | 2018-05-24 | PN ---
DATE: 05/21/2018 This is a late entry for 05/21/2018 and the covers elements not covered in my initial note. SUBJECTIVE: I met with the patient in the evening. The patient slept 7-1/2 hours previous evening, received Zyprexa at 6:10 p.m. She was rattling the paper at another patient in the [facility], where she had been placed due to increased agitation. It took 3 people to help contain her. She is paranoid, believes people were stealing her money and that Efraín was here. REVIEW OF SYSTEMS: No CV, , pulmonary, eye, ENT system symptoms on review. Reliability poor. MENTAL STATUS EXAM: Oriented to herself. Insight, judgment, recent and remote memory, attention, concentration, fund of knowledge poor, consistent with her diagnosis mentioned in my initial note. PLAN: Start Depakote Sprinkles 125 mg twice a day. Check CBC, CMP, valproic acid level in 3 days. Continue rest unchanged. KADEN RIVAS MD DR: ZAHRA/marian JOB#: [id number] / [id number]
[2018-05-24 05:48] VITALS: BP 109/61
[2018-05-24] MEDS: METOPROLOL TART IMMED RELEASE 50 MG TABLET PO SCH ×2 (08:17→19:34)
[2018-05-24] MEDS: MULTIVITAMIN with MINERAL TABLET. PO SCH (08:17)
[2018-05-24] MEDS: QUEtiapine 25 MG TABLET. PO SCH ×3 (08:17→16:29)
[2018-05-24] MEDS: PANTOPRAZOLE 40 MG TABLET. PO SCH (08:18)
[2018-05-24] MEDS: CITALOPRAM 10 MG TABLET. PO SCH (08:18)
[2018-05-24] MEDS: LACTOBACILLUS RHAMNOSUS GG 1 CAPSULE. PO SCH ×2 (08:18→19:34)
[2018-05-24] MEDS: DIVALPROEX 125 MG CAP.SPRINK PO SCH ×2 (08:18→19:36)
[2018-05-24] MEDS: ACETAMINOPHEN 325 MG TABLET PO SCH ×2 (08:18→19:35)
[2018-05-24] MEDS: NYSTATIN TOPICAL POWDER 15GM BOTTLE. TP SCH ×2 (08:19→19:35)
[2018-05-24 08:25] LABS: BASO # 0.1 x10^3/uL (0.0-0.2); BASO % 1 % (0-3); EOS # 0.3 x10^3/uL (0.0-0.7); EOS % 4 % (0-3); HEMATOCRIT 41.9 % (36.0-47.0); HEMOGLOBIN 13.8 g/dL (12.0-15.5); LYMPH # 1.2 x10^3/uL (1.0-4.8); LYMPH % 18 % (24-48); MEAN CORPUSCULAR HEMOGLOBIN 29 pg (25-35); MEAN CORPUSCULAR HGB CONC 33 g/dL (31-37); MEAN CORPUSCULAR VOLUME 89 fL (79-100); MONO # 0.7 x10^3/uL (0.0-1.1); MONO % 12 % (0-9); NEUT # 4.2 x10^3uL (1.8-7.7); NEUT % 64 % (31-73); PLATELET COUNT 330 x10^3/uL (140-400); RED CELL DISTRIBUTION WIDTH 13.8 % (11.5-14.5); WHITE BLOOD COUNT 6.4 x10^3/uL (4.0-11.0)
[2018-05-24 08:40] LABS: ALBUMIN 3.2 g/dL (3.4-5.0); ALBUMIN/GLOBULIN RATIO 0.9 (1.0-1.7); ALK PHOS 70 U/L (46-116); ALT (SGPT) 19 U/L (14-59); ANION GAP 4 (6-14); AST (SGOT) 19 U/L (15-37); BLOOD UREA NITROGEN 24 mg/dL (7-20); BUN/CREATININE RATIO 30 (6-20); CALCIUM 9.3 mg/dL (8.5-10.1); CARBON DIOXIDE 29 mmol/L (21-32); CHLORIDE 105 mmol/L (98-107); CREATININE 0.8 mg/dL (0.6-1.0); GFR 70.5; GLUCOSE 122 mg/dL (70-99); POTASSIUM 4.3 mmol/L (3.5-5.1); SODIUM 138 mmol/L (136-145); TOTAL BILIRUBIN 0.4 mg/dL (0.2-1.0); TOTAL PROTEIN 6.8 g/dL (6.4-8.2)
[2018-05-24 08:41] LABS: VAL ACID 17 mcg/mL (50-100)
[2018-05-24 16:00] VITALS: BP 101/68
[2018-05-24] MEDS: MIRTAZAPINE 15 MG TABLET PO SCH (19:34)
[2018-05-24] MEDS: traZODone 50 MG TABLET. PO SCH (19:35)
--- NOTE | 2018-05-24 23:05 | PDOC ---
Exam Note: [place] Note: Please also refer to the separate dictated note~for this date of service dictated separately.~Patient seen individually. Discussed the patient with Nursing staff reviewed the chart.~Reviewed interim history and current functioning. Reviewed vital signs,~Labs/ Radiology~and current medications noted below. Continue current treatment with the changes noted in the dictated addendum note Assessment: Vital Signs: Vital Signs Date Time Temp Pulse Resp B/P (MAP) Pulse Ox O2 Delivery O2 Flow Rate FiO2 05/24/18 19:34 87 101/68 05/24/18 16:00 97.3 18 96 Room Air I&O Intake and Output 05/24/18 06:59 Intake Total 950 ml Balance 950 ml Intake Oral 720 ml Tube Feeding 230 ml # Bowel Movements 1 Labs: Laboratory Tests Test 05/24/18 08:05 White Blood Count 6.4 x10^3/uL (4.0-11.0) Red Blood Count 4.70 x10^6/uL (3.50-5.40) Hemoglobin 13.8 g/dL (12.0-15.5) Hematocrit 41.9 % (36.0-47.0) Mean Corpuscular Volume 89 fL (79-100) Mean Corpuscular Hemoglobin 29 pg (25-35) Mean Corpuscular Hemoglobin Concent 33 g/dL (31-37) Red Cell Distribution Width 13.8 % (11.5-14.5) Platelet Count 330 x10^3/uL (140-400) Neutrophils (%) (Auto) 64 % (31-73) Lymphocytes (%) (Auto) 18 % (24-48) L Monocytes (%) (Auto) 12 % (0-9) H Eosinophils (%) (Auto) 4 % (0-3) H Basophils (%) (Auto) 1 % (0-3) Neutrophils # (Auto) 4.2 x10^3uL (1.8-7.7) Lymphocytes # (Auto) 1.2 x10^3/uL (1.0-4.8) Monocytes # (Auto) 0.7 x10^3/uL (0.0-1.1) Eosinophils # (Auto) 0.3 x10^3/uL (0.0-0.7) Basophils # (Auto) 0.1 x10^3/uL (0.0-0.2) Sodium Level 138 mmol/L (136-145) Potassium Level 4.3 mmol/L (3.5-5.1) Chloride Level 105 mmol/L (98-107) Carbon Dioxide Level 29 mmol/L (21-32) Anion Gap 4 (6-14) L Blood Urea Nitrogen 24 mg/dL (7-20) H Creatinine 0.8 mg/dL (0.6-1.0) Estimated GFR (Cockcroft-Gault) 70.5 BUN/Creatinine Ratio 30 (6-20) H Glucose Level 122 mg/dL (70-99) H Calcium Level 9.3 mg/dL (8.5-10.1) Total Bilirubin 0.4 mg/dL (0.2-1.0) Aspartate Amino Transferase (AST) 19 U/L (15-37) Alanine Aminotransferase (ALT) 19 U/L (14-59) Alkaline Phosphatase 70 U/L (46-116) Total Protein 6.8 g/dL (6.4-8.2) Albumin 3.2 g/dL (3.4-5.0) L Albumin/Globulin Ratio 0.9 (1.0-1.7) L Valproic Acid Level 17 mcg/mL (50-100) L Valproic Acid Last Dose Date 05/23/18 Valproic Acid Last Dose Time 1700 Current Medications: Meds: Current Medications Ceftriaxone Sodium 1 gm/ Sodium Chloride 50 ml @ 100 mls/hr 1X ONCE IV ; Start 05/03/18 at 22:30; Stop 05/03/18 at 22:30; Status DC Ceftriaxone Sodium (Rocephin Im) 1 gm 1X ONCE IM Last administered on at 22:46; Start 05/03/18 at 22:45; Stop 05/03/18 at 23:54; Status DC Ceftriaxone Sodium (Rocephin) 1 gm STK-MED ONCE IV ; Start 05/03/18 at 22:37; Stop 05/03/18 at 22:38; Status DC Acetaminophen (Tylenol) 650 mg PRN Q6HRS PRN PO PAIN / TEMP; Start 05/03/18 at 23:15; Status Cancel Multi-Ingredient Ointment (Analgesic [place]) 1 bessy PRN QID PRN TP MUSCLE PAIN; Start 05/03/18 at 23:15 Al Hydroxide/Mg Hydroxide (Mylanta Plus Xs) 15 ml PRN AFTMEALHC PRN PO DYSPEPSIA; Start 05/03/18 at 23:15 Magnesium Hydroxide (Milk Of Magnesia) 2,400 mg PRN QHS PRN PO CONSTIPATION; Start 05/03/18 at 23:15 Citalopram Hydrobromide (CeleXA) 10 mg DAILY PO Last administered on 05/24/18at 08:18; Start 05/04/18 at 09:00 Non-Formulary Medication (Quetiapine Fumarate (Seroquel)) 25 mg PRN DAILY PRN PO AGITATION; Start 05/04/18 at 00:15; Status UNV Non-Formulary Medication (Quetiapine Fumarate (Seroquel)) 25 mg QHS PO ; Start 05/04/18 at 21:00; Status UNV Acetaminophen (Tylenol) 650 mg BID PO Last administered on 05/24/18at 19:35; Start 05/04/18 at 09:00 Acetaminophen (Tylenol) 650 mg PRN Q6HRS PRN PO PAIN; Start 05/04/18 at 00:15 Hydrocortisone (Proctosol-Hc) 1 bessy PRN BID PRN RC RECTAL PAIN; Start 05/04/18 at 00:15 Tramadol HCl (Ultram) 50 mg PRN BID PRN PO PAIN Last administered on 05/13/18at 21:26; Start 05/04/18 at 00:15 Non-Formulary Medication (Cephalexin (Keflex)) 500 mg Q6HRS PO ; Start 05/04/18 at 06:00; Status UNV Non-Formulary Medication (Methimazole (Tapazole)) 5 mg Q8HRS PO ; Start 05/04/18 at 06:00; Status UNV Non-Formulary Medication (Metoprolol Tartrate ) 50 mg BID PO ; Start 05/04/18 at 09:00; Stop 05/04/18 at 09:00; Status Cancel Non-Formulary Medication (Multivits-Min/ Fa/Lycopene/Lut (Centrum Silver Tablet) ) 1 each DAILY PO ; Start 05/04/18 at 09:00; Stop 05/04/18 at 09:00; Status DC Non-Formulary Medication (Omeprazole ) 20 mg DAILY07 PO ; Start 05/04/18 at 07:00 ; Stop 05/04/18 at 07:00; Status DC Non-Formulary Medication (Ondansetron Hcl ) 4 mg PRN TID PRN PO NAUSEA/VOMITING ; Start 05/04/18 at 00:15; Status UNV Cephalexin HCl (Keflex) 500 mg Q6HRS PO Last administered on 05/06/18 17:55; Start 05/04/18 at 06:00; Stop 05/06/18 at 19:00; Status DC Methimazole (Tapazole) 5 mg Q8HRS PO Last administered on 05/24/18 19:36; Start 05/04/18 at 06:00 Quetiapine Fumarate (SEROquel) 25 mg HS PO Last administered on 05/08/18 20:45 ; Start 05/04/18 at 21:00; Stop 05/09/18 at 18:48; Status DC Quetiapine Fumarate (SEROquel) 25 mg PRN DAILY PRN PO ANXIETY / AGITATION Last administered on 05/05/18 22:11; Start 05/04/18 at 02:30; Stop 05/06/18 at 18:40; Status DC Ondansetron HCl (Zofran Odt) 4 mg PRN TID PRN PO NAUSEA/VOMITING; Start at 02:30 Metoprolol Tartrate (Lopressor) 50 mg BID PO Last administered on 05/24/18 08: 17; Start 05/04/18 at 09:00 Multivitamins/ Calcium (Thera-M Plus) 1 tab DAILY PO Last administered on 08:17; Start 05/04/18 at 09:00 Pantoprazole Sodium (Protonix) 40 mg DAILYAC PO Last administered on 05/24/18 08:18; Start 05/04/18 at 07:30 Trazodone HCl (Desyrel) 25 mg PRN QHS PRN PO INSOMNIA, MAY REPEAT X1 Last administered on 05/05/18 22:12; Start 05/04/18 at 19:45; Stop 05/06/18 at 18:40; Status DC Mirtazapine (Remeron) 7.5 mg QHS PO Last administered on 05/07/18 20:57; Start 05/05/18 at 21:00; Stop 05/08/18 at 11:20; Status DC Quetiapine Fumarate (SEROquel) 12.5 mg DAILY PO Last administered on 05/06/18at 11:41; Start 05/06/18 at 09:00; Stop 05/06/18 at 18:40; Status DC Quetiapine Fumarate (SEROquel) 12.5 mg 0900,1700 PO Last administered on at 10:35; Start 05/07/18 at 09:00; Stop 05/07/18 at 16:38; Status DC Trazodone HCl (Desyrel) 50 mg PRN QHS PRN PO INSOMNIA, MAY REPEAT X1 Last administered on 05/13/18at 21:25; Start 05/06/18 at 18:45 Trazodone HCl (Desyrel) 50 mg QHS PO Last administered on 05/24/18at 19:35; Start 05/06/18 at 21:00 Olanzapine (ZyPREXA ZYDIS) 2.5 mg PRN Q2HR PRN PO PSYCHOSIS Last administered on 05/21/18at 18:17; Start 05/06/18 at 18:45 Quetiapine Fumarate (SEROquel) 12.5 mg 0900,1300,1700 PO Last administered on at 17:27; Start 05/07/18 at 17:00; Stop 05/09/18 at 18:48; Status DC Mirtazapine (Remeron) 15 mg QHS PO Last administered on 05/24/18at 19:34; Start 05/08/18 at 21:00 Loperamide HCl (Imodium) 2 mg PRN QID PRN PO DIARRHEA Last administered on 05/23at 17:13; Start 05/08/18 at 16:30 Quetiapine Fumarate (SEROquel) 25 mg 1700,2100 PO Last administered on at 17:18; Start 05/09/18 at 21:00; Stop 05/18/18 at 20:07; Status DC Quetiapine Fumarate (SEROquel) 12.5 mg 0900,1300 PO Last administered on at 13:52; Start 05/10/18 at 09:00; Stop 05/10/18 at 19:08; Status DC Quetiapine Fumarate (SEROquel) 12.5 mg DAILY@1300 PO Last administered on at 14:00; Start 05/11/18 at 13:00; Stop 05/12/18 at 18:28; Status DC Quetiapine Fumarate (SEROquel) 25 mg DAILY PO Last administered on 05/18/18at 09 :19; Start 05/11/18 at 09:00; Stop 05/18/18 at 20:07; Status DC Nystatin (Nystop) 1 bessy BID TP Last administered on 05/24/18at 19:35; Start 05/11 at 21:00 Docusate Sodium (Colace) 100 mg BID PO Last administered on 05/19/18at 20:20; Start 05/12/18 at 21:00; Stop 05/20/18 at 18:08; Status DC Quetiapine Fumarate (SEROquel) 25 mg DAILY@1300 PO Last administered on at 13:43; Start 05/13/18 at 13:00; Stop 05/14/18 at 19:23; Status DC Ciprofloxacin (Cipro) 500 mg BID PO Last administered on 05/20/18at 08:53; Start 05/13/18 at 10:00; Stop 05/20/18 at 09:59; Status DC Lactobacillus Rhamnosus (Culturelle) 1 cap BID PO Last administered on at 19:34; Start 05/13/18 at 21:00 Quetiapine Fumarate (SEROquel) 25 mg DAILY PO ; Start 05/15/18 at 09:00; Status Cancel Neomycin/ Polymyxin/ Bacitracin (Triple Antibiotic Ointment) 1 pkt 1X ONCE TP Last administered on 05/15/18at 10:15; Start 05/15/18 at 10:15; Stop 05/15/18 at 10:16; Status DC Fluconazole (Diflucan) 100 mg 1X ONCE PO Last administered on 05/15/18at 16:25 ; Start 05/15/18 at 16:00; Stop 05/15/18 at 16:12; Status DC Nystatin (Nystop) 15 bessy STK-MED ONCE TP Last administered on 05/17/18at 17:12; Start 05/10/18 at 14:29; Stop 05/17/18 at 17:07; Status DC Quetiapine Fumarate (SEROquel) 37.5 mg TID@0900,1300,1700 PO Last administered on 05/24/18at 16:29; Start 05/19/18 at 09:00 Divalproex Sodium (Depakote Sprinkles) 125 mg BID@0900,1700 PO Last administered on 05/24/18at 08:18; Start 05/22/18 at 09:00; Stop 05/24/18 at 14:09 ; Status DC Divalproex Sodium (Depakote Sprinkles) 250 mg BID PO Last administered on at 19:36; Start 05/24/18 at 21:00 Active Scripts Active Reported Proctosol-Hc (Hydrocortisone) 28.35 Gm Cream..g. 1 Applic RC BID Proctosol-Hc (Hydrocortisone) 28.35 Gm Cream..g. 1 Applic RC PRN BID PRN Ondansetron Hcl 4 Mg Tablet 4 Mg PO PRN TID PRN Metoprolol Tartrate 50 Mg Tablet 50 Mg PO BID Omeprazole 20 Mg Tablet.dr 20 Mg PO DAILY07 Citalopram Hbr (Citalopram Hydrobromide) 10 Mg Tablet 10 Mg PO DAILY Centrum Silver Tablet (Multivits-Min/Fa/Lycopene/Lut) 1 Each Tablet 1 Each PO DAILY Keflex (Cephalexin) 500 Mg Capsule 500 Mg PO Q6HRS Ultram (Tramadol HCl) 50 Mg Tablet 50 Mg PO BID PRN Tapazole (Methimazole) 5 Mg Tablet 5 Mg PO Q8HRS Seroquel (Quetiapine Fumarate) 25 Mg Tablet 25 Mg PO PRN DAILY PRN Seroquel (Quetiapine Fumarate) 25 Mg Tablet 25 Mg PO QHS Tylenol (Acetaminophen) 325 Mg Tablet 650 Mg PO BID Tylenol (Acetaminophen) 325 Mg Tablet 650 Mg PO PRN Q6HRS PRN I have reviewed the current psychotropics carefully including drug interactions. Risk benefit ratio favors no change other than as noted in my dictated progress note. Diagnosis: Problems: (1) Dementia due to Alzheimer's disease (2) Anxiety disorder (3) Dementia in Alzheimer's disease with delusions (4) Dementia in Alzheimer's disease with depression (5) Dementia, vascular, with delusions (6) Dementia, vascular, with depression (7) Impulse control disorder KADEN RIVAS MD May 24, 2018 23:05
[2018-05-25 05:41] VITALS: BP 104/57
--- NOTE | 2018-05-25 09:34 | PN ---
DATE: 05/23/2018 This is a late entry 05/23/2018 covers elements not covered in my initial note. SUBJECTIVE: I met with the patient in the evening. The patient slept 6-3/4 hours previous evening, remains confused, wandering, stool for C. diff is negative. Urine culture is negative. She has been taking 2 Ensures twice a day, otherwise solid food intake is limited. REVIEW OF SYSTEMS: No CV, , pulmonary, eye, ENT system symptoms on review. Reliability poor. MENTAL STATUS EXAM: Oriented to herself. Insight, judgment, recent and remote memory, attention, concentration, fund of knowledge poor, consistent with her diagnosis mentioned in my initial note. PLAN: Continue psychotropics from initial note. Adjust as indicated. MAN Tosha RIVAS MD DR: ZAHRA/marian JOB#: [id number] / [id number]
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
[2018-05-25] MEDS: PANTOPRAZOLE 40 MG TABLET. PO SCH (09:40)
[2018-05-25] MEDS: ACETAMINOPHEN 325 MG TABLET PO SCH ×2 (09:41→20:23)
[2018-05-25] MEDS: QUEtiapine 25 MG TABLET. PO SCH ×3 (09:42→17:43)
[2018-05-25] MEDS: METOPROLOL TART IMMED RELEASE 50 MG TABLET PO SCH ×2 (09:42→20:22)
[2018-05-25] MEDS: LACTOBACILLUS RHAMNOSUS GG 1 CAPSULE. PO SCH ×2 (09:42→20:23)
[2018-05-25] MEDS: MULTIVITAMIN with MINERAL TABLET. PO SCH (09:42)
[2018-05-25] MEDS: CITALOPRAM 10 MG TABLET. PO SCH (09:42)
[2018-05-25] MEDS: DIVALPROEX 125 MG CAP.SPRINK PO SCH ×2 (09:42→20:23)
[2018-05-25] MEDS: NYSTATIN TOPICAL POWDER 15GM BOTTLE. TP SCH ×2 (09:43→20:23)
[2018-05-25 16:07] VITALS: BP 100/64
--- NOTE | 2018-05-25 20:15 | PDOC ---
Exam Note: [place] Note: Please also refer to the separate dictated note~for this date of service dictated separately.~Patient seen individually. Discussed the patient with Nursing staff reviewed the chart.~Reviewed interim history and current functioning. Reviewed vital signs,~Labs/ Radiology~and current medications noted below. Continue current treatment with the changes noted in the dictated addendum note Assessment: Vital Signs: Vital Signs Date Time Temp Pulse Resp B/P (MAP) Pulse Ox O2 Delivery O2 Flow Rate FiO2 05/25/18 16:07 97.7 68 18 100/64 (76) 96 05/24/18 16:00 Room Air I&O Intake and Output 05/25/18 06:59 Intake Total 1440 ml Balance 1440 ml Intake Oral 1440 ml Current Medications: Meds: Current Medications Ceftriaxone Sodium 1 gm/ Sodium Chloride 50 ml @ 100 mls/hr 1X ONCE IV ; Start 05/03/18 at 22:30; Stop 05/03/18 at 22:30; Status DC Ceftriaxone Sodium (Rocephin Im) 1 gm 1X ONCE IM Last administered on at 22:46; Start 05/03/18 at 22:45; Stop 05/03/18 at 23:54; Status DC Ceftriaxone Sodium (Rocephin) 1 gm STK-MED ONCE IV ; Start 05/03/18 at 22:37; Stop 05/03/18 at 22:38; Status DC Acetaminophen (Tylenol) 650 mg PRN Q6HRS PRN PO PAIN / TEMP; Start 05/03/18 at 23:15; Status Cancel Multi-Ingredient Ointment (Analgesic [place]) 1 bessy PRN QID PRN TP MUSCLE PAIN; Start 05/03/18 at 23:15 Al Hydroxide/Mg Hydroxide (Mylanta Plus Xs) 15 ml PRN AFTMEALHC PRN PO DYSPEPSIA; Start 05/03/18 at 23:15 Magnesium Hydroxide (Milk Of Magnesia) 2,400 mg PRN QHS PRN PO CONSTIPATION; Start 05/03/18 at 23:15 Citalopram Hydrobromide (CeleXA) 10 mg DAILY PO Last administered on 05/25/18at 09:42; Start 05/04/18 at 09:00 Non-Formulary Medication (Quetiapine Fumarate (Seroquel)) 25 mg PRN DAILY PRN PO AGITATION; Start 05/04/18 at 00:15; Status UNV Non-Formulary Medication (Quetiapine Fumarate (Seroquel)) 25 mg QHS PO ; Start 05/04/18 at 21:00; Status UNV Acetaminophen (Tylenol) 650 mg BID PO Last administered on 05/25/18at 09:41; Start 05/04/18 at 09:00 Acetaminophen (Tylenol) 650 mg PRN Q6HRS PRN PO PAIN; Start 05/04/18 at 00:15 Hydrocortisone (Proctosol-Hc) 1 bessy PRN BID PRN RC RECTAL PAIN; Start 05/04/18 at 00:15 Tramadol HCl (Ultram) 50 mg PRN BID PRN PO PAIN Last administered on 05/13/18at 21:26; Start 05/04/18 at 00:15 Non-Formulary Medication (Cephalexin (Keflex)) 500 mg Q6HRS PO ; Start 05/04/18 at 06:00; Status UNV Non-Formulary Medication (Methimazole (Tapazole)) 5 mg Q8HRS PO ; Start 05/04/18 at 06:00; Status UNV Non-Formulary Medication (Metoprolol Tartrate ) 50 mg BID PO ; Start 05/04/18 at 09:00; Stop 05/04/18 at 09:00; Status Cancel Non-Formulary Medication (Multivits-Min/ Fa/Lycopene/Lut (Centrum Silver Tablet) ) 1 each DAILY PO ; Start 05/04/18 at 09:00; Stop 05/04/18 at 09:00; Status DC Non-Formulary Medication (Omeprazole ) 20 mg DAILY07 PO ; Start 05/04/18 at 07:00 ; Stop 05/04/18 at 07:00; Status DC Non-Formulary Medication (Ondansetron Hcl ) 4 mg PRN TID PRN PO NAUSEA/VOMITING ; Start 05/04/18 at 00:15; Status UNV Cephalexin HCl (Keflex) 500 mg Q6HRS PO Last administered on 05/06/18at 17:55; Start 05/04/18 at 06:00; Stop 05/06/18 at 19:00; Status DC Methimazole (Tapazole) 5 mg Q8HRS PO Last administered on 05/25/18 13:48; Start 05/04/18 at 06:00 Quetiapine Fumarate (SEROquel) 25 mg HS PO Last administered on 05/08/18 20:45 ; Start 05/04/18 at 21:00; Stop 05/09/18 at 18:48; Status DC Quetiapine Fumarate (SEROquel) 25 mg PRN DAILY PRN PO ANXIETY / AGITATION Last administered on 05/05/18 22:11; Start 05/04/18 at 02:30; Stop 05/06/18 at 18:40; Status DC Ondansetron HCl (Zofran Odt) 4 mg PRN TID PRN PO NAUSEA/VOMITING; Start at 02:30 Metoprolol Tartrate (Lopressor) 50 mg BID PO Last administered on 05/25/18 09: 42; Start 05/04/18 at 09:00 Multivitamins/ Calcium (Thera-M Plus) 1 tab DAILY PO Last administered on 09:42; Start 05/04/18 at 09:00 Pantoprazole Sodium (Protonix) 40 mg DAILYAC PO Last administered on 05/25/18 09:40; Start 05/04/18 at 07:30 Trazodone HCl (Desyrel) 25 mg PRN QHS PRN PO INSOMNIA, MAY REPEAT X1 Last administered on 05/05/18 22:12; Start 05/04/18 at 19:45; Stop 05/06/18 at 18:40; Status DC Mirtazapine (Remeron) 7.5 mg QHS PO Last administered on 05/07/18 20:57; Start 05/05/18 at 21:00; Stop 05/08/18 at 11:20; Status DC Quetiapine Fumarate (SEROquel) 12.5 mg DAILY PO Last administered on 05/06/18 11:41; Start 05/06/18 at 09:00; Stop 05/06/18 at 18:40; Status DC Quetiapine Fumarate (SEROquel) 12.5 mg 0900,1700 PO Last administered on at 10:35; Start 05/07/18 at 09:00; Stop 05/07/18 at 16:38; Status DC Trazodone HCl (Desyrel) 50 mg PRN QHS PRN PO INSOMNIA, MAY REPEAT X1 Last administered on 05/13/18at 21:25; Start 05/06/18 at 18:45 Trazodone HCl (Desyrel) 50 mg QHS PO Last administered on 05/24/18at 19:35; Start 05/06/18 at 21:00 Olanzapine (ZyPREXA ZYDIS) 2.5 mg PRN Q2HR PRN PO PSYCHOSIS Last administered on 05/21/18at 18:17; Start 05/06/18 at 18:45 Quetiapine Fumarate (SEROquel) 12.5 mg 0900,1300,1700 PO Last administered on at 17:27; Start 05/07/18 at 17:00; Stop 05/09/18 at 18:48; Status DC Mirtazapine (Remeron) 15 mg QHS PO Last administered on 05/24/18at 19:34; Start 05/08/18 at 21:00 Loperamide HCl (Imodium) 2 mg PRN QID PRN PO DIARRHEA Last administered on 05/23at 17:13; Start 05/08/18 at 16:30 Quetiapine Fumarate (SEROquel) 25 mg 1700,2100 PO Last administered on 17:18; Start 05/09/18 at 21:00; Stop 05/18/18 at 20:07; Status DC Quetiapine Fumarate (SEROquel) 12.5 mg 0900,1300 PO Last administered on at 13:52; Start 05/10/18 at 09:00; Stop 05/10/18 at 19:08; Status DC Quetiapine Fumarate (SEROquel) 12.5 mg DAILY@1300 PO Last administered on at 14:00; Start 05/11/18 at 13:00; Stop 05/12/18 at 18:28; Status DC Quetiapine Fumarate (SEROquel) 25 mg DAILY PO Last administered on 05/18/18 09 :19; Start 05/11/18 at 09:00; Stop 05/18/18 at 20:07; Status DC Nystatin (Nystop) 1 bessy BID TP Last administered on 05/25/18at 09:43; Start 05/11 at 21:00 Docusate Sodium (Colace) 100 mg BID PO Last administered on 05/19/18at 20:20; Start 05/12/18 at 21:00; Stop 05/20/18 at 18:08; Status DC Quetiapine Fumarate (SEROquel) 25 mg DAILY@1300 PO Last administered on at 13:43; Start 05/13/18 at 13:00; Stop 05/14/18 at 19:23; Status DC Ciprofloxacin (Cipro) 500 mg BID PO Last administered on 05/20/18at 08:53; Start 05/13/18 at 10:00; Stop 05/20/18 at 09:59; Status DC Lactobacillus Rhamnosus (Culturelle) 1 cap BID PO Last administered on at 09:42; Start 05/13/18 at 21:00 Quetiapine Fumarate (SEROquel) 25 mg DAILY PO ; Start 05/15/18 at 09:00; Status Cancel Neomycin/ Polymyxin/ Bacitracin (Triple Antibiotic Ointment) 1 pkt 1X ONCE TP Last administered on 05/15/18at 10:15; Start 05/15/18 at 10:15; Stop 05/15/18 at 10:16; Status DC Fluconazole (Diflucan) 100 mg 1X ONCE PO Last administered on 05/15/18at 16:25 ; Start 05/15/18 at 16:00; Stop 05/15/18 at 16:12; Status DC Nystatin (Nystop) 15 bessy STK-MED ONCE TP Last administered on 05/17/18at 17:12; Start 05/10/18 at 14:29; Stop 05/17/18 at 17:07; Status DC Quetiapine Fumarate (SEROquel) 37.5 mg TID@0900,1300,1700 PO Last administered on 05/25/18at 17:43; Start 05/19/18 at 09:00 Divalproex Sodium (Depakote Sprinkles) 125 mg BID@0900,1700 PO Last administered on 05/24/18at 08:18; Start 05/22/18 at 09:00; Stop 05/24/18 at 14:09 ; Status DC Divalproex Sodium (Depakote Sprinkles) 250 mg BID PO Last administered on at 09:42; Start 05/24/18 at 21:00 Active Scripts Active Reported Proctosol-Hc (Hydrocortisone) 28.35 Gm Cream..g. 1 Applic RC BID Proctosol-Hc (Hydrocortisone) 28.35 Gm Cream..g. 1 Applic RC PRN BID PRN Ondansetron Hcl 4 Mg Tablet 4 Mg PO PRN TID PRN Metoprolol Tartrate 50 Mg Tablet 50 Mg PO BID Omeprazole 20 Mg Tablet.dr 20 Mg PO DAILY07 Citalopram Hbr (Citalopram Hydrobromide) 10 Mg Tablet 10 Mg PO DAILY Centrum Silver Tablet (Multivits-Min/Fa/Lycopene/Lut) 1 Each Tablet 1 Each PO DAILY Keflex (Cephalexin) 500 Mg Capsule 500 Mg PO Q6HRS Ultram (Tramadol HCl) 50 Mg Tablet 50 Mg PO BID PRN Tapazole (Methimazole) 5 Mg Tablet 5 Mg PO Q8HRS Seroquel (Quetiapine Fumarate) 25 Mg Tablet 25 Mg PO PRN DAILY PRN Seroquel (Quetiapine Fumarate) 25 Mg Tablet 25 Mg PO QHS Tylenol (Acetaminophen) 325 Mg Tablet 650 Mg PO BID Tylenol (Acetaminophen) 325 Mg Tablet 650 Mg PO PRN Q6HRS PRN I have reviewed the current psychotropics carefully including drug interactions. Risk benefit ratio favors no change other than as noted in my dictated progress note. Diagnosis: Problems: (1) Dementia due to Alzheimer's disease (2) Anxiety disorder (3) Dementia in Alzheimer's disease with delusions (4) Dementia in Alzheimer's disease with depression (5) Dementia, vascular, with delusions (6) Dementia, vascular, with depression (7) Impulse control disorder KADEN RIVAS MD May 25, 2018 20:15
[2018-05-25] MEDS: MIRTAZAPINE 15 MG TABLET PO SCH (20:21)
[2018-05-25] MEDS: traZODone 50 MG TABLET. PO SCH (20:22)
[2018-05-26 06:22] VITALS: BP 98/60
[2018-05-26] MEDS: METOPROLOL TART IMMED RELEASE 50 MG TABLET PO SCH ×2 (09:00→20:53)
[2018-05-26] MEDS: DIVALPROEX 125 MG CAP.SPRINK PO SCH ×2 (10:08→20:53)
[2018-05-26] MEDS: CITALOPRAM 10 MG TABLET. PO SCH (10:09)
[2018-05-26] MEDS: MULTIVITAMIN with MINERAL TABLET. PO SCH (10:09)
[2018-05-26] MEDS: PANTOPRAZOLE 40 MG TABLET. PO SCH (10:09)
[2018-05-26] MEDS: QUEtiapine 25 MG TABLET. PO SCH ×3 (10:09→18:22)
[2018-05-26] MEDS: LACTOBACILLUS RHAMNOSUS GG 1 CAPSULE. PO SCH ×2 (10:09→20:53)
[2018-05-26] MEDS: ACETAMINOPHEN 325 MG TABLET PO SCH ×2 (10:09→20:53)
[2018-05-26] MEDS: NYSTATIN TOPICAL POWDER 15GM BOTTLE. TP SCH ×2 (10:11→20:54)
[2018-05-26 16:04] VITALS: BP 103/68
--- NOTE | 2018-05-26 20:37 | PDOC ---
Exam Note: [place] Note: Please also refer to the separate dictated note~for this date of service dictated separately.~Patient seen individually. Discussed the patient with Nursing staff reviewed the chart.~Reviewed interim history and current functioning. Reviewed vital signs,~Labs/ Radiology~and current medications noted below. Continue current treatment with the changes noted in the dictated addendum note Assessment: Vital Signs: Vital Signs Date Time Temp Pulse Resp B/P (MAP) Pulse Ox O2 Delivery O2 Flow Rate FiO2 05/26/18 16:04 97.4 89 20 103/68 (80) 97 05/24/18 16:00 Room Air I&O Intake and Output 05/26/18 07:00 Intake Total 485 ml Balance 485 ml Intake Oral 485 ml # Bowel Movements 1 Current Medications: Meds: Current Medications Ceftriaxone Sodium 1 gm/ Sodium Chloride 50 ml @ 100 mls/hr 1X ONCE IV ; Start 05/03/18 at 22:30; Stop 05/03/18 at 22:30; Status DC Ceftriaxone Sodium (Rocephin Im) 1 gm 1X ONCE IM Last administered on at 22:46; Start 05/03/18 at 22:45; Stop 05/03/18 at 23:54; Status DC Ceftriaxone Sodium (Rocephin) 1 gm STK-MED ONCE IV ; Start 05/03/18 at 22:37; Stop 05/03/18 at 22:38; Status DC Acetaminophen (Tylenol) 650 mg PRN Q6HRS PRN PO PAIN / TEMP; Start 05/03/18 at 23:15; Status Cancel Multi-Ingredient Ointment (Analgesic [place]) 1 bessy PRN QID PRN TP MUSCLE PAIN; Start 05/03/18 at 23:15 Al Hydroxide/Mg Hydroxide (Mylanta Plus Xs) 15 ml PRN AFTMEALHC PRN PO DYSPEPSIA; Start 05/03/18 at 23:15 Magnesium Hydroxide (Milk Of Magnesia) 2,400 mg PRN QHS PRN PO CONSTIPATION; Start 05/03/18 at 23:15 Citalopram Hydrobromide (CeleXA) 10 mg DAILY PO Last administered on 05/26/18at 10:09; Start 05/04/18 at 09:00 Non-Formulary Medication (Quetiapine Fumarate (Seroquel)) 25 mg PRN DAILY PRN PO AGITATION; Start 05/04/18 at 00:15; Status UNV Non-Formulary Medication (Quetiapine Fumarate (Seroquel)) 25 mg QHS PO ; Start 05/04/18 at 21:00; Status UNV Acetaminophen (Tylenol) 650 mg BID PO Last administered on 05/26/18at 10:09; Start 05/04/18 at 09:00 Acetaminophen (Tylenol) 650 mg PRN Q6HRS PRN PO PAIN; Start 05/04/18 at 00:15 Hydrocortisone (Proctosol-Hc) 1 bessy PRN BID PRN RC RECTAL PAIN; Start 05/04/18 at 00:15 Tramadol HCl (Ultram) 50 mg PRN BID PRN PO PAIN Last administered on 05/13/18at 21:26; Start 05/04/18 at 00:15 Non-Formulary Medication (Cephalexin (Keflex)) 500 mg Q6HRS PO ; Start 05/04/18 at 06:00; Status UNV Non-Formulary Medication (Methimazole (Tapazole)) 5 mg Q8HRS PO ; Start 05/04/18 at 06:00; Status UNV Non-Formulary Medication (Metoprolol Tartrate ) 50 mg BID PO ; Start 05/04/18 at 09:00; Stop 05/04/18 at 09:00; Status Cancel Non-Formulary Medication (Multivits-Min/ Fa/Lycopene/Lut (Centrum Silver Tablet) ) 1 each DAILY PO ; Start 05/04/18 at 09:00; Stop 05/04/18 at 09:00; Status DC Non-Formulary Medication (Omeprazole ) 20 mg DAILY07 PO ; Start 05/04/18 at 07:00 ; Stop 05/04/18 at 07:00; Status DC Non-Formulary Medication (Ondansetron Hcl ) 4 mg PRN TID PRN PO NAUSEA/VOMITING ; Start 05/04/18 at 00:15; Status UNV Cephalexin HCl (Keflex) 500 mg Q6HRS PO Last administered on 05/06/18at 17:55; Start 05/04/18 at 06:00; Stop 05/06/18 at 19:00; Status DC Methimazole (Tapazole) 5 mg Q8HRS PO Last administered on 05/26/18 13:47; Start 05/04/18 at 06:00 Quetiapine Fumarate (SEROquel) 25 mg HS PO Last administered on 05/08/18 20:45 ; Start 05/04/18 at 21:00; Stop 05/09/18 at 18:48; Status DC Quetiapine Fumarate (SEROquel) 25 mg PRN DAILY PRN PO ANXIETY / AGITATION Last administered on 05/05/18 22:11; Start 05/04/18 at 02:30; Stop 05/06/18 at 18:40; Status DC Ondansetron HCl (Zofran Odt) 4 mg PRN TID PRN PO NAUSEA/VOMITING; Start at 02:30 Metoprolol Tartrate (Lopressor) 50 mg BID PO Last administered on 05/25/18 09: 42; Start 05/04/18 at 09:00 Multivitamins/ Calcium (Thera-M Plus) 1 tab DAILY PO Last administered on 10:09; Start 05/04/18 at 09:00 Pantoprazole Sodium (Protonix) 40 mg DAILYAC PO Last administered on 05/26/18 10:09; Start 05/04/18 at 07:30 Trazodone HCl (Desyrel) 25 mg PRN QHS PRN PO INSOMNIA, MAY REPEAT X1 Last administered on 05/05/18at 22:12; Start 05/04/18 at 19:45; Stop 05/06/18 at 18:40; Status DC Mirtazapine (Remeron) 7.5 mg QHS PO Last administered on 05/07/18at 20:57; Start 05/05/18 at 21:00; Stop 05/08/18 at 11:20; Status DC Quetiapine Fumarate (SEROquel) 12.5 mg DAILY PO Last administered on 05/06/18at 11:41; Start 05/06/18 at 09:00; Stop 05/06/18 at 18:40; Status DC Quetiapine Fumarate (SEROquel) 12.5 mg 0900,1700 PO Last administered on at 10:35; Start 05/07/18 at 09:00; Stop 05/07/18 at 16:38; Status DC Trazodone HCl (Desyrel) 50 mg PRN QHS PRN PO INSOMNIA, MAY REPEAT X1 Last administered on 05/13/18at 21:25; Start 05/06/18 at 18:45 Trazodone HCl (Desyrel) 50 mg QHS PO Last administered on 05/25/18at 20:22; Start 05/06/18 at 21:00 Olanzapine (ZyPREXA ZYDIS) 2.5 mg PRN Q2HR PRN PO PSYCHOSIS Last administered on 05/21/18at 18:17; Start 05/06/18 at 18:45 Quetiapine Fumarate (SEROquel) 12.5 mg 0900,1300,1700 PO Last administered on at 17:27; Start 05/07/18 at 17:00; Stop 05/09/18 at 18:48; Status DC Mirtazapine (Remeron) 15 mg QHS PO Last administered on 05/25/18at 20:21; Start 05/08/18 at 21:00 Loperamide HCl (Imodium) 2 mg PRN QID PRN PO DIARRHEA Last administered on 05/23at 17:13; Start 05/08/18 at 16:30 Quetiapine Fumarate (SEROquel) 25 mg 1700,2100 PO Last administered on 17:18; Start 05/09/18 at 21:00; Stop 05/18/18 at 20:07; Status DC Quetiapine Fumarate (SEROquel) 12.5 mg 0900,1300 PO Last administered on at 13:52; Start 05/10/18 at 09:00; Stop 05/10/18 at 19:08; Status DC Quetiapine Fumarate (SEROquel) 12.5 mg DAILY@1300 PO Last administered on at 14:00; Start 05/11/18 at 13:00; Stop 05/12/18 at 18:28; Status DC Quetiapine Fumarate (SEROquel) 25 mg DAILY PO Last administered on 05/18/18 09 :19; Start 05/11/18 at 09:00; Stop 05/18/18 at 20:07; Status DC Nystatin (Nystop) 1 bessy BID TP Last administered on 05/26/18at 10:11; Start 05/11 at 21:00 Docusate Sodium (Colace) 100 mg BID PO Last administered on 05/19/18at 20:20; Start 05/12/18 at 21:00; Stop 05/20/18 at 18:08; Status DC Quetiapine Fumarate (SEROquel) 25 mg DAILY@1300 PO Last administered on at 13:43; Start 05/13/18 at 13:00; Stop 05/14/18 at 19:23; Status DC Ciprofloxacin (Cipro) 500 mg BID PO Last administered on 05/20/18at 08:53; Start 05/13/18 at 10:00; Stop 05/20/18 at 09:59; Status DC Lactobacillus Rhamnosus (Culturelle) 1 cap BID PO Last administered on at 10:09; Start 05/13/18 at 21:00 Quetiapine Fumarate (SEROquel) 25 mg DAILY PO ; Start 05/15/18 at 09:00; Status Cancel Neomycin/ Polymyxin/ Bacitracin (Triple Antibiotic Ointment) 1 pkt 1X ONCE TP Last administered on 05/15/18at 10:15; Start 05/15/18 at 10:15; Stop 05/15/18 at 10:16; Status DC Fluconazole (Diflucan) 100 mg 1X ONCE PO Last administered on 05/15/18at 16:25 ; Start 05/15/18 at 16:00; Stop 05/15/18 at 16:12; Status DC Nystatin (Nystop) 15 bessy STK-MED ONCE TP Last administered on 05/17/18at 17:12; Start 05/10/18 at 14:29; Stop 05/17/18 at 17:07; Status DC Quetiapine Fumarate (SEROquel) 37.5 mg TID@0900,1300,1700 PO Last administered on 05/26/18at 18:22; Start 05/19/18 at 09:00; Stop 05/26/18 at 19:39; Status DC Divalproex Sodium (Depakote Sprinkles) 125 mg BID@0900,1700 PO Last administered on 05/24/18at 08:18; Start 05/22/18 at 09:00; Stop 7/21/18 at 14:09 ; Status DC Divalproex Sodium (Depakote Sprinkles) 250 mg BID PO Last administered on at 10:08; Start 05/24/18 at 21:00 Quetiapine Fumarate (SEROquel) 37.5 mg 1300,1700 PO ; Start 05/27/18 at 13:00 Quetiapine Fumarate (SEROquel) 50 mg DAILY PO ; Start 05/27/18 at 09:00 Active Scripts Active Reported Proctosol-Hc (Hydrocortisone) 28.35 Gm Cream..g. 1 Applic RC BID Proctosol-Hc (Hydrocortisone) 28.35 Gm Cream..g. 1 Applic RC PRN BID PRN Ondansetron Hcl 4 Mg Tablet 4 Mg PO PRN TID PRN Metoprolol Tartrate 50 Mg Tablet 50 Mg PO BID Omeprazole 20 Mg Tablet.dr 20 Mg PO DAILY07 Citalopram Hbr (Citalopram Hydrobromide) 10 Mg Tablet 10 Mg PO DAILY Centrum Silver Tablet (Multivits-Min/Fa/Lycopene/Lut) 1 Each Tablet 1 Each PO DAILY Keflex (Cephalexin) 500 Mg Capsule 500 Mg PO Q6HRS Ultram (Tramadol HCl) 50 Mg Tablet 50 Mg PO BID PRN Tapazole (Methimazole) 5 Mg Tablet 5 Mg PO Q8HRS Seroquel (Quetiapine Fumarate) 25 Mg Tablet 25 Mg PO PRN DAILY PRN Seroquel (Quetiapine Fumarate) 25 Mg Tablet 25 Mg PO QHS Tylenol (Acetaminophen) 325 Mg Tablet 650 Mg PO BID Tylenol (Acetaminophen) 325 Mg Tablet 650 Mg PO PRN Q6HRS PRN I have reviewed the current psychotropics carefully including drug interactions. Risk benefit ratio favors no change other than as noted in my dictated progress note. Diagnosis: Problems: (1) Dementia due to Alzheimer's disease (2) Anxiety disorder (3) Dementia in Alzheimer's disease with delusions (4) Dementia in Alzheimer's disease with depression (5) Dementia, vascular, with delusions (6) Dementia, vascular, with depression (7) Impulse control disorder KADEN RIVAS MD May 26, 2018 20:37
[2018-05-26] MEDS: traZODone 50 MG TABLET. PO SCH (20:53)
[2018-05-26] MEDS: MIRTAZAPINE 15 MG TABLET PO SCH (20:53)
--- NOTE | 2018-05-26 21:20 | PN ---
DATE: 05/25/2018 PSYCHIATRIC PROGRESS NOTE This is a late entry for 05/25/2018, covers elements not covered in my initial note. SUBJECTIVE: I met with the patient in the evening. The patient remains confused, but otherwise pleasant, took her medications, takes her medications crushed in strawberry boost or vanilla ice cream. Less aggressive. REVIEW OF SYSTEMS: No CV, , pulmonary, eye, ENT system symptoms on review. Reliability poor. MENTAL STATUS EXAM: Oriented to herself. Insight, judgment, recent and remote memory, attention, concentration, fund of knowledge poor, consistent with her diagnosis mentioned in my initial note. PLAN: No change from a psychiatric standpoint. KADEN RIVAS MD DR: ZAHRA/marian JOB#: [id number] / [id number]
[2018-05-27 05:50] VITALS: BP 104/53
[2018-05-27] MEDS: DIVALPROEX 125 MG CAP.SPRINK PO SCH ×2 (08:58→19:36)
[2018-05-27] MEDS: LACTOBACILLUS RHAMNOSUS GG 1 CAPSULE. PO SCH ×2 (08:58→19:36)
[2018-05-27] MEDS: CITALOPRAM 10 MG TABLET. PO SCH (08:58)
[2018-05-27] MEDS: METOPROLOL TART IMMED RELEASE 50 MG TABLET PO SCH (08:59)
[2018-05-27] MEDS: MULTIVITAMIN with MINERAL TABLET. PO SCH (08:59)
[2018-05-27] MEDS: ACETAMINOPHEN 325 MG TABLET PO SCH ×2 (08:59→19:36)
[2018-05-27] MEDS: PANTOPRAZOLE 40 MG TABLET. PO SCH (08:59)
[2018-05-27] MEDS: QUEtiapine 50 MG TABLET. PO SCH (09:00)
[2018-05-27] MEDS: NYSTATIN TOPICAL POWDER 15GM BOTTLE. TP SCH ×2 (09:00→19:40)
[2018-05-27] MEDS: QUEtiapine 25 MG TABLET. PO SCH ×2 (13:42→17:21)
[2018-05-27 15:59] VITALS: BP 150/76
[2018-05-27] MEDS: traZODone 50 MG TABLET. PO SCH ×2 (19:36→22:06)
[2018-05-27] MEDS: MIRTAZAPINE 15 MG TABLET PO SCH (19:37)
[2018-05-27] MEDS: METOPROLOL TART IMMED RELEASE 25 MG TABLET PO SCH (19:38)
--- NOTE | 2018-05-27 21:19 | PDOC ---
Exam Note: [place] Note: Please also refer to the separate dictated note~for this date of service dictated separately.~Patient seen individually. Discussed the patient with Nursing staff reviewed the chart.~Reviewed interim history and current functioning. Reviewed vital signs,~Labs/ Radiology~and current medications noted below. Continue current treatment with the changes noted in the dictated addendum note Assessment: Vital Signs: Vital Signs Date Time Temp Pulse Resp B/P (MAP) Pulse Ox O2 Delivery O2 Flow Rate FiO2 05/27/18 19:38 68 150/76 05/27/18 15:59 97.3 20 98 05/24/18 16:00 Room Air I&O Intake and Output 05/27/18 07:00 Intake Total 1080 ml Balance 1080 ml Intake Oral 1080 ml # Voids 1 Current Medications: Meds: Current Medications Ceftriaxone Sodium 1 gm/ Sodium Chloride 50 ml @ 100 mls/hr 1X ONCE IV ; Start 05/03/18 at 22:30; Stop 05/03/18 at 22:30; Status DC Ceftriaxone Sodium (Rocephin Im) 1 gm 1X ONCE IM Last administered on at 22:46; Start 05/03/18 at 22:45; Stop 05/03/18 at 23:54; Status DC Ceftriaxone Sodium (Rocephin) 1 gm STK-MED ONCE IV ; Start 05/03/18 at 22:37; Stop 05/03/18 at 22:38; Status DC Acetaminophen (Tylenol) 650 mg PRN Q6HRS PRN PO PAIN / TEMP; Start 05/03/18 at 23:15; Status Cancel Multi-Ingredient Ointment (Analgesic [place]) 1 bessy PRN QID PRN TP MUSCLE PAIN; Start 05/03/18 at 23:15 Al Hydroxide/Mg Hydroxide (Mylanta Plus Xs) 15 ml PRN AFTMEALHC PRN PO DYSPEPSIA; Start 05/03/18 at 23:15 Magnesium Hydroxide (Milk Of Magnesia) 2,400 mg PRN QHS PRN PO CONSTIPATION; Start 05/03/18 at 23:15 Citalopram Hydrobromide (CeleXA) 10 mg DAILY PO Last administered on 05/27/18at 08:58; Start 05/04/18 at 09:00 Non-Formulary Medication (Quetiapine Fumarate (Seroquel)) 25 mg PRN DAILY PRN PO AGITATION; Start 05/04/18 at 00:15; Status UNV Non-Formulary Medication (Quetiapine Fumarate (Seroquel)) 25 mg QHS PO ; Start 05/04/18 at 21:00; Status UNV Acetaminophen (Tylenol) 650 mg BID PO Last administered on 05/27/18at 19:36; Start 05/04/18 at 09:00 Acetaminophen (Tylenol) 650 mg PRN Q6HRS PRN PO PAIN; Start 05/04/18 at 00:15 Hydrocortisone (Proctosol-Hc) 1 bessy PRN BID PRN RC RECTAL PAIN; Start 05/04/18 at 00:15 Tramadol HCl (Ultram) 50 mg PRN BID PRN PO PAIN Last administered on 05/13/18at 21:26; Start 05/04/18 at 00:15 Non-Formulary Medication (Cephalexin (Keflex)) 500 mg Q6HRS PO ; Start 05/04/18 at 06:00; Status UNV Non-Formulary Medication (Methimazole (Tapazole)) 5 mg Q8HRS PO ; Start 05/04/18 at 06:00; Status UNV Non-Formulary Medication (Metoprolol Tartrate ) 50 mg BID PO ; Start 05/04/18 at 09:00; Stop 05/04/18 at 09:00; Status Cancel Non-Formulary Medication (Multivits-Min/ Fa/Lycopene/Lut (Centrum Silver Tablet) ) 1 each DAILY PO ; Start 05/04/18 at 09:00; Stop 05/04/18 at 09:00; Status DC Non-Formulary Medication (Omeprazole ) 20 mg DAILY07 PO ; Start 05/04/18 at 07:00 ; Stop 05/04/18 at 07:00; Status DC Non-Formulary Medication (Ondansetron Hcl ) 4 mg PRN TID PRN PO NAUSEA/VOMITING ; Start 05/04/18 at 00:15; Status UNV Cephalexin HCl (Keflex) 500 mg Q6HRS PO Last administered on 05/06/18at 17:55; Start 05/04/18 at 06:00; Stop 05/06/18 at 19:00; Status DC Methimazole (Tapazole) 5 mg Q8HRS PO Last administered on 05/27/18 13:42; Start 05/04/18 at 06:00 Quetiapine Fumarate (SEROquel) 25 mg HS PO Last administered on 05/08/18 20:45 ; Start 05/04/18 at 21:00; Stop 05/09/18 at 18:48; Status DC Quetiapine Fumarate (SEROquel) 25 mg PRN DAILY PRN PO ANXIETY / AGITATION Last administered on 05/05/18 22:11; Start 05/04/18 at 02:30; Stop 05/06/18 at 18:40; Status DC Ondansetron HCl (Zofran Odt) 4 mg PRN TID PRN PO NAUSEA/VOMITING; Start at 02:30 Metoprolol Tartrate (Lopressor) 50 mg BID PO Last administered on 05/27/18 08: 59; Start 05/04/18 at 09:00; Stop 05/27/18 at 15:42; Status DC Multivitamins/ Calcium (Thera-M Plus) 1 tab DAILY PO Last administered on at 08:59; Start 05/04/18 at 09:00 Pantoprazole Sodium (Protonix) 40 mg DAILYAC PO Last administered on 05/27/18 08:59; Start 05/04/18 at 07:30 Trazodone HCl (Desyrel) 25 mg PRN QHS PRN PO INSOMNIA, MAY REPEAT X1 Last administered on 05/05/18at 22:12; Start 05/04/18 at 19:45; Stop 05/06/18 at 18:40; Status DC Mirtazapine (Remeron) 7.5 mg QHS PO Last administered on 05/07/18 20:57; Start 05/05/18 at 21:00; Stop 05/08/18 at 11:20; Status DC Quetiapine Fumarate (SEROquel) 12.5 mg DAILY PO Last administered on 05/06/18 11:41; Start 05/06/18 at 09:00; Stop 05/06/18 at 18:40; Status DC Quetiapine Fumarate (SEROquel) 12.5 mg 0900,1700 PO Last administered on at 10:35; Start 05/07/18 at 09:00; Stop 05/07/18 at 16:38; Status DC Trazodone HCl (Desyrel) 50 mg PRN QHS PRN PO INSOMNIA, MAY REPEAT X1 Last administered on 05/13/18at 21:25; Start 05/06/18 at 18:45 Trazodone HCl (Desyrel) 50 mg QHS PO Last administered on 05/27/18at 19:36; Start 05/06/18 at 21:00 Olanzapine (ZyPREXA ZYDIS) 2.5 mg PRN Q2HR PRN PO PSYCHOSIS Last administered on 05/21/18at 18:17; Start 05/06/18 at 18:45 Quetiapine Fumarate (SEROquel) 12.5 mg 0900,1300,1700 PO Last administered on at 17:27; Start 05/07/18 at 17:00; Stop 05/09/18 at 18:48; Status DC Mirtazapine (Remeron) 15 mg QHS PO Last administered on 05/27/18at 19:37; Start 05/08/18 at 21:00 Loperamide HCl (Imodium) 2 mg PRN QID PRN PO DIARRHEA Last administered on 05/23at 17:13; Start 05/08/18 at 16:30 Quetiapine Fumarate (SEROquel) 25 mg 1700,2100 PO Last administered on at 17:18; Start 05/09/18 at 21:00; Stop 05/18/18 at 20:07; Status DC Quetiapine Fumarate (SEROquel) 12.5 mg 0900,1300 PO Last administered on at 13:52; Start 05/10/18 at 09:00; Stop 05/10/18 at 19:08; Status DC Quetiapine Fumarate (SEROquel) 12.5 mg DAILY@1300 PO Last administered on at 14:00; Start 05/11/18 at 13:00; Stop 05/12/18 at 18:28; Status DC Quetiapine Fumarate (SEROquel) 25 mg DAILY PO Last administered on 05/18/18at 09 :19; Start 05/11/18 at 09:00; Stop 05/18/18 at 20:07; Status DC Nystatin (Nystop) 1 bessy BID TP Last administered on 05/27/18at 19:40; Start 05/11 at 21:00 Docusate Sodium (Colace) 100 mg BID PO Last administered on 05/19/18at 20:20; Start 05/12/18 at 21:00; Stop 05/20/18 at 18:08; Status DC Quetiapine Fumarate (SEROquel) 25 mg DAILY@1300 PO Last administered on at 13:43; Start 05/13/18 at 13:00; Stop 05/14/18 at 19:23; Status DC Ciprofloxacin (Cipro) 500 mg BID PO Last administered on 05/20/18at 08:53; Start 05/13/18 at 10:00; Stop 05/20/18 at 09:59; Status DC Lactobacillus Rhamnosus (Culturelle) 1 cap BID PO Last administered on at 19:36; Start 05/13/18 at 21:00 Quetiapine Fumarate (SEROquel) 25 mg DAILY PO ; Start 05/15/18 at 09:00; Status Cancel Neomycin/ Polymyxin/ Bacitracin (Triple Antibiotic Ointment) 1 pkt 1X ONCE TP Last administered on 05/15/18at 10:15; Start 05/15/18 at 10:15; Stop 05/15/18 at 10:16; Status DC Fluconazole (Diflucan) 100 mg 1X ONCE PO Last administered on 05/15/18at 16:25 ; Start 05/15/18 at 16:00; Stop 05/15/18 at 16:12; Status DC Nystatin (Nystop) 15 bessy STK-MED ONCE TP Last administered on 05/17/18at 17:12; Start 05/10/18 at 14:29; Stop 05/17/18 at 17:07; Status DC Quetiapine Fumarate (SEROquel) 37.5 mg TID@0900,1300,1700 PO Last administered on 05/26/18at 18:22; Start 05/19/18 at 09:00; Stop 05/26/18 at 19:39; Status DC Divalproex Sodium (Depakote Sprinkles) 125 mg BID@0900,1700 PO Last administered on 05/24/18at 08:18; Start 05/22/18 at 09:00; Stop 05/24/18 at 14:09 ; Status DC Divalproex Sodium (Depakote Sprinkles) 250 mg BID PO Last administered on at 19:36; Start 05/24/18 at 21:00 Quetiapine Fumarate (SEROquel) 37.5 mg 1300,1700 PO Last administered on at 17:21; Start 05/27/18 at 13:00 Quetiapine Fumarate (SEROquel) 50 mg DAILY PO Last administered on 05/27/18at 09 :00; Start 05/27/18 at 09:00 Metoprolol Tartrate (Lopressor) 25 mg BID PO Last administered on 05/27/18at 19: 38; Start 05/27/18 at 21:00 Active Scripts Active Reported Proctosol-Hc (Hydrocortisone) 28.35 Gm Cream..g. 1 Applic RC BID Proctosol-Hc (Hydrocortisone) 28.35 Gm Cream..g. 1 Applic RC PRN BID PRN Ondansetron Hcl 4 Mg Tablet 4 Mg PO PRN TID PRN Metoprolol Tartrate 50 Mg Tablet 50 Mg PO BID Omeprazole 20 Mg Tablet.dr 20 Mg PO DAILY07 Citalopram Hbr (Citalopram Hydrobromide) 10 Mg Tablet 10 Mg PO DAILY Centrum Silver Tablet (Multivits-Min/Fa/Lycopene/Lut) 1 Each Tablet 1 Each PO DAILY Keflex (Cephalexin) 500 Mg Capsule 500 Mg PO Q6HRS Ultram (Tramadol HCl) 50 Mg Tablet 50 Mg PO BID PRN Tapazole (Methimazole) 5 Mg Tablet 5 Mg PO Q8HRS Seroquel (Quetiapine Fumarate) 25 Mg Tablet 25 Mg PO PRN DAILY PRN Seroquel (Quetiapine Fumarate) 25 Mg Tablet 25 Mg PO QHS Tylenol (Acetaminophen) 325 Mg Tablet 650 Mg PO BID Tylenol (Acetaminophen) 325 Mg Tablet 650 Mg PO PRN Q6HRS PRN I have reviewed the current psychotropics carefully including drug interactions. Risk benefit ratio favors no change other than as noted in my dictated progress note. Diagnosis: Problems: (1) Dementia due to Alzheimer's disease (2) Anxiety disorder (3) Dementia in Alzheimer's disease with delusions (4) Dementia in Alzheimer's disease with depression (5) Dementia, vascular, with delusions (6) Dementia, vascular, with depression (7) Impulse control disorder KADEN RIVAS MD May 27, 2018 21:19
[2018-05-27] MEDS: traMADol 50 MG TABLET PO PRN (22:07)
--- NOTE | 2018-05-27 23:16 | PN ---
DATE: 05/26/2018 PSYCHIATRIC PROGRESS NOTE This is a late entry 05/26/2018 covers elements not covered in my initial note. SUBJECTIVE: I met with the patient in the evening. The patient slept 7 hours previous evening. Her metoprolol was held last night secondary to her blood pressure being low. She slept in the day room, slept 7 hours. Quite anxious, agitated in the afternoon of 05/26/2018, [facility] time since she was agitated in the day room. REVIEW OF SYSTEMS: No CV, , pulmonary, eye, ENT system symptoms on review. Reliability poor. MENTAL STATUS EXAM: Oriented to herself. Insight, judgment, recent and remote memory, attention, concentration, fund of knowledge poor, consistent with her diagnosis mentioned in my initial note. PLAN: Increase a.m. Seroquel from 37.5 mg to 50 mg, continue 37.5 b.i.d., Remeron, Zyprexa p.r.n., Celexa, trazodone, and Depakote. Valproic acid level is to be repeated 05/28/2018, may adjust further to reach therapeutic level. KADEN RIVAS MD DR: ZAHRA/marian JOB#: [id number] / [id number]
[2018-05-28 06:07] VITALS: BP 90/51
[2018-05-28 07:03] LABS: BASO # 0.1 x10^3/uL (0.0-0.2); BASO % 2 % (0-3); EOS # 0.5 x10^3/uL (0.0-0.7); EOS % 8 % (0-3); HEMOGLOBIN 12.5 g/dL (12.0-15.5); LYMPH # 1.9 x10^3/uL (1.0-4.8); LYMPH % 33 % (24-48); MEAN CORPUSCULAR HEMOGLOBIN 30 pg (25-35); MEAN CORPUSCULAR HGB CONC 34 g/dL (31-37); MEAN CORPUSCULAR VOLUME 90 fL (79-100); MONO # 0.8 x10^3/uL (0.0-1.1); MONO % 15 % (0-9); NEUT # 2.4 x10^3uL (1.8-7.7); NEUT % 43 % (31-73); PLATELET COUNT 277 x10^3/uL (140-400); RED BLOOD COUNT 4.13 x10^6/uL (3.50-5.40); WHITE BLOOD COUNT 5.6 x10^3/uL (4.0-11.0)
[2018-05-28 07:16] LABS: ALBUMIN 2.7 g/dL (3.4-5.0); ALBUMIN/GLOBULIN RATIO 0.8 (1.0-1.7); ALK PHOS 61 U/L (46-116); ALT (SGPT) 17 U/L (14-59); ANION GAP 4 (6-14); AST (SGOT) 17 U/L (15-37); BLOOD UREA NITROGEN 26 mg/dL (7-20); BUN/CREATININE RATIO 37 (6-20); CARBON DIOXIDE 32 mmol/L (21-32); CHLORIDE 106 mmol/L (98-107); CREATININE 0.7 mg/dL (0.6-1.0); GFR 82.3; GLUCOSE 83 mg/dL (70-99); POTASSIUM 4.4 mmol/L (3.5-5.1); SODIUM 142 mmol/L (136-145); TOTAL BILIRUBIN 0.4 mg/dL (0.2-1.0)
[2018-05-28 07:19] LABS: VAL ACID 31 mcg/mL (50-100)
[2018-05-28] MEDS: QUEtiapine 25 MG TABLET. PO SCH ×2 (08:00→17:27)
[2018-05-28] MEDS: CITALOPRAM 10 MG TABLET. PO SCH (08:00)
[2018-05-28] MEDS: DIVALPROEX 125 MG CAP.SPRINK PO SCH ×2 (08:00→20:00)
[2018-05-28] MEDS: LACTOBACILLUS RHAMNOSUS GG 1 CAPSULE. PO SCH ×2 (08:00→19:59)
[2018-05-28] MEDS: PANTOPRAZOLE 40 MG TABLET. PO SCH (08:00)
[2018-05-28] MEDS: QUEtiapine 50 MG TABLET. PO SCH (08:01)
[2018-05-28] MEDS: ACETAMINOPHEN 325 MG TABLET PO SCH ×2 (08:01→20:01)
[2018-05-28] MEDS: MULTIVITAMIN with MINERAL TABLET. PO SCH (08:02)
[2018-05-28] MEDS: METOPROLOL TART IMMED RELEASE 25 MG TABLET PO SCH ×2 (08:02→20:00)
[2018-05-28] MEDS: NYSTATIN TOPICAL POWDER 15GM BOTTLE. TP SCH ×2 (08:03→20:03)
[2018-05-28 16:23] VITALS: BP 102/64
--- NOTE | 2018-05-28 19:29 | PN ---
DATE: 05/27/2018 PSYCHIATRIC PROGRESS NOTE This late entry 05/27/2018 covers elements not covered in my initial note. SUBJECTIVE: I met with the patient in the evening. The patient slept 7-1/2 hours previous evening. She has had no behaviors, remains anxious, restless, wandering up and down the hallway, but redirectable. She refused her medications in the afternoon, took them later with Ensure. REVIEW OF SYSTEMS: No CV, , pulmonary, eye, ENT system symptoms on review. Reliability poor. MENTAL STATUS EXAM: Oriented to herself. Insight, judgment, recent and remote memory, attention, concentration, fund of knowledge poor, consistent with her diagnosis mentioned in my initial note. PLAN: Continue current psychotropics. Valproic acid level will be repeated 06/01/2018, will adjust Depakote thereafter. MAN Tosha RIVAS MD DR: ZAHRA/marian JOB#: [id number] / [id number]
[2018-05-28] MEDS: MIRTAZAPINE 15 MG TABLET PO SCH (20:00)
--- NOTE | 2018-05-28 21:03 | PDOC ---
Exam Note: [place] Note: Please also refer to the separate dictated note~for this date of service dictated separately.~Patient seen individually. Discussed the patient with Nursing staff reviewed the chart.~Reviewed interim history and current functioning. Reviewed vital signs,~Labs/ Radiology~and current medications noted below. Continue current treatment with the changes noted in the dictated addendum note Assessment: Vital Signs: Vital Signs Date Time Temp Pulse Resp B/P (MAP) Pulse Ox O2 Delivery O2 Flow Rate FiO2 05/28/18 20:00 82 102/64 05/28/18 16:23 98.6 20 98 Room Air I&O Intake and Output 05/28/18 07:00 Intake Total 720 ml Balance 720 ml Intake Oral 720 ml # Voids 1 Labs: Laboratory Tests Test 05/28/18 06:45 White Blood Count 5.6 x10^3/uL (4.0-11.0) Red Blood Count 4.13 x10^6/uL (3.50-5.40) Hemoglobin 12.5 g/dL (12.0-15.5) Hematocrit 37.0 % (36.0-47.0) Mean Corpuscular Volume 90 fL (79-100) Mean Corpuscular Hemoglobin 30 pg (25-35) Mean Corpuscular Hemoglobin Concent 34 g/dL (31-37) Red Cell Distribution Width 14.0 % (11.5-14.5) Platelet Count 277 x10^3/uL (140-400) Neutrophils (%) (Auto) 43 % (31-73) Lymphocytes (%) (Auto) 33 % (24-48) Monocytes (%) (Auto) 15 % (0-9) H Eosinophils (%) (Auto) 8 % (0-3) H Basophils (%) (Auto) 2 % (0-3) Neutrophils # (Auto) 2.4 x10^3uL (1.8-7.7) Lymphocytes # (Auto) 1.9 x10^3/uL (1.0-4.8) Monocytes # (Auto) 0.8 x10^3/uL (0.0-1.1) Eosinophils # (Auto) 0.5 x10^3/uL (0.0-0.7) Basophils # (Auto) 0.1 x10^3/uL (0.0-0.2) Sodium Level 142 mmol/L (136-145) Potassium Level 4.4 mmol/L (3.5-5.1) Chloride Level 106 mmol/L (98-107) Carbon Dioxide Level 32 mmol/L (21-32) Anion Gap 4 (6-14) L Blood Urea Nitrogen 26 mg/dL (7-20) H Creatinine 0.7 mg/dL (0.6-1.0) Estimated GFR (Cockcroft-Gault) 82.3 BUN/Creatinine Ratio 37 (6-20) H Glucose Level 83 mg/dL (70-99) Calcium Level 9.0 mg/dL (8.5-10.1) Total Bilirubin 0.4 mg/dL (0.2-1.0) Aspartate Amino Transferase (AST) 17 U/L (15-37) Alanine Aminotransferase (ALT) 17 U/L (14-59) Alkaline Phosphatase 61 U/L (46-116) Total Protein 6.0 g/dL (6.4-8.2) L Albumin 2.7 g/dL (3.4-5.0) L Albumin/Globulin Ratio 0.8 (1.0-1.7) L Valproic Acid Level 31 mcg/mL (50-100) L Valproic Acid Last Dose Date 05/27/2018 Valproic Acid Last Dose Time 2100 Current Medications: Meds: Current Medications Ceftriaxone Sodium 1 gm/ Sodium Chloride 50 ml @ 100 mls/hr 1X ONCE IV ; Start 05/03/18 at 22:30; Stop 05/03/18 at 22:30; Status DC Ceftriaxone Sodium (Rocephin Im) 1 gm 1X ONCE IM Last administered on at 22:46; Start 05/03/18 at 22:45; Stop 05/03/18 at 23:54; Status DC Ceftriaxone Sodium (Rocephin) 1 gm STK-MED ONCE IV ; Start 05/03/18 at 22:37; Stop 05/03/18 at 22:38; Status DC Acetaminophen (Tylenol) 650 mg PRN Q6HRS PRN PO PAIN / TEMP; Start 05/03/18 at 23:15; Status Cancel Multi-Ingredient Ointment (Analgesic Thorp) 1 bessy PRN QID PRN TP MUSCLE PAIN; Start 05/03/18 at 23:15 Al Hydroxide/Mg Hydroxide (Mylanta Plus Xs) 15 ml PRN AFTMEALHC PRN PO DYSPEPSIA; Start 05/03/18 at 23:15 Magnesium Hydroxide (Milk Of Magnesia) 2,400 mg PRN QHS PRN PO CONSTIPATION; Start 05/03/18 at 23:15 Citalopram Hydrobromide (CeleXA) 10 mg DAILY PO Last administered on 05/28/18at 08:00; Start 05/04/18 at 09:00 Non-Formulary Medication (Quetiapine Fumarate (Seroquel)) 25 mg PRN DAILY PRN PO AGITATION; Start 05/04/18 at 00:15; Status UNV Non-Formulary Medication (Quetiapine Fumarate (Seroquel)) 25 mg QHS PO ; Start 05/04/18 at 21:00; Status UNV Acetaminophen (Tylenol) 650 mg BID PO Last administered on 05/28/18at 20:01; Start 05/04/18 at 09:00 Acetaminophen (Tylenol) 650 mg PRN Q6HRS PRN PO PAIN; Start 05/04/18 at 00:15 Hydrocortisone (Proctosol-Hc) 1 bessy PRN BID PRN RC RECTAL PAIN; Start 05/04/18 at 00:15 Tramadol HCl (Ultram) 50 mg PRN BID PRN PO PAIN Last administered on 05/27/18at 22:07; Start 05/04/18 at 00:15 Non-Formulary Medication (Cephalexin (Keflex)) 500 mg Q6HRS PO ; Start 05/04/18 at 06:00; Status UNV Non-Formulary Medication (Methimazole (Tapazole)) 5 mg Q8HRS PO ; Start 05/04/18 at 06:00; Status UNV Non-Formulary Medication (Metoprolol Tartrate ) 50 mg BID PO ; Start 05/04/18 at 09:00; Stop 05/04/18 at 09:00; Status Cancel Non-Formulary Medication (Multivits-Min/ Fa/Lycopene/Lut (Centrum Silver Tablet) ) 1 each DAILY PO ; Start 05/04/18 at 09:00; Stop 05/04/18 at 09:00; Status DC Non-Formulary Medication (Omeprazole ) 20 mg DAILY07 PO ; Start 05/04/18 at 07:00 ; Stop 05/04/18 at 07:00; Status DC Non-Formulary Medication (Ondansetron Hcl ) 4 mg PRN TID PRN PO NAUSEA/VOMITING ; Start 05/04/18 at 00:15; Status UNV Cephalexin HCl (Keflex) 500 mg Q6HRS PO Last administered on 05/06/18 17:55; Start 05/04/18 at 06:00; Stop 05/06/18 at 19:00; Status DC Methimazole (Tapazole) 5 mg Q8HRS PO Last administered on 05/28/18 20:03; Start 05/04/18 at 06:00 Quetiapine Fumarate (SEROquel) 25 mg HS PO Last administered on 05/08/18 20:45 ; Start 05/04/18 at 21:00; Stop 05/09/18 at 18:48; Status DC Quetiapine Fumarate (SEROquel) 25 mg PRN DAILY PRN PO ANXIETY / AGITATION Last administered on 05/05/18 22:11; Start 05/04/18 at 02:30; Stop 05/06/18 at 18:40; Status DC Ondansetron HCl (Zofran Odt) 4 mg PRN TID PRN PO NAUSEA/VOMITING; Start at 02:30 Metoprolol Tartrate (Lopressor) 50 mg BID PO Last administered on 05/27/18 08: 59; Start 05/04/18 at 09:00; Stop 05/27/18 at 15:42; Status DC Multivitamins/ Calcium (Thera-M Plus) 1 tab DAILY PO Last administered on 08:02; Start 05/04/18 at 09:00 Pantoprazole Sodium (Protonix) 40 mg DAILYAC PO Last administered on 05/28/18 08:00; Start 05/04/18 at 07:30 Trazodone HCl (Desyrel) 25 mg PRN QHS PRN PO INSOMNIA, MAY REPEAT X1 Last administered on 05/05/18 22:12; Start 05/04/18 at 19:45; Stop 05/06/18 at 18:40; Status DC Mirtazapine (Remeron) 7.5 mg QHS PO Last administered on 7/4/18at 20:57; Start 05/05/18 at 21:00; Stop 05/08/18 at 11:20; Status DC Quetiapine Fumarate (SEROquel) 12.5 mg DAILY PO Last administered on 05/06/18at 11:41; Start 05/06/18 at 09:00; Stop 05/06/18 at 18:40; Status DC Quetiapine Fumarate (SEROquel) 12.5 mg 0900,1700 PO Last administered on at 10:35; Start 05/07/18 at 09:00; Stop 05/07/18 at 16:38; Status DC Trazodone HCl (Desyrel) 50 mg PRN QHS PRN PO INSOMNIA, MAY REPEAT X1 Last administered on 05/13/18at 21:25; Start 05/06/18 at 18:45 Trazodone HCl (Desyrel) 50 mg QHS PO Last administered on 05/27/18at 22:06; Start 05/06/18 at 21:00 Olanzapine (ZyPREXA ZYDIS) 2.5 mg PRN Q2HR PRN PO PSYCHOSIS Last administered on 05/21/18at 18:17; Start 05/06/18 at 18:45 Quetiapine Fumarate (SEROquel) 12.5 mg 0900,1300,1700 PO Last administered on at 17:27; Start 05/07/18 at 17:00; Stop 05/09/18 at 18:48; Status DC Mirtazapine (Remeron) 15 mg QHS PO Last administered on 05/28/18at 20:00; Start 05/08/18 at 21:00 Loperamide HCl (Imodium) 2 mg PRN QID PRN PO DIARRHEA Last administered on 05/23at 17:13; Start 05/08/18 at 16:30 Quetiapine Fumarate (SEROquel) 25 mg 1700,2100 PO Last administered on 17:18; Start 05/09/18 at 21:00; Stop 05/18/18 at 20:07; Status DC Quetiapine Fumarate (SEROquel) 12.5 mg 0900,1300 PO Last administered on at 13:52; Start 05/10/18 at 09:00; Stop 05/10/18 at 19:08; Status DC Quetiapine Fumarate (SEROquel) 12.5 mg DAILY@1300 PO Last administered on at 14:00; Start 05/11/18 at 13:00; Stop 05/12/18 at 18:28; Status DC Quetiapine Fumarate (SEROquel) 25 mg DAILY PO Last administered on 05/18/18at 09 :19; Start 05/11/18 at 09:00; Stop 05/18/18 at 20:07; Status DC Nystatin (Nystop) 1 bessy BID TP Last administered on 05/28/18at 20:03; Start 05/11 at 21:00 Docusate Sodium (Colace) 100 mg BID PO Last administered on 05/19/18at 20:20; Start 05/12/18 at 21:00; Stop 05/20/18 at 18:08; Status DC Quetiapine Fumarate (SEROquel) 25 mg DAILY@1300 PO Last administered on at 13:43; Start 05/13/18 at 13:00; Stop 05/14/18 at 19:23; Status DC Ciprofloxacin (Cipro) 500 mg BID PO Last administered on 05/20/18at 08:53; Start 05/13/18 at 10:00; Stop 05/20/18 at 09:59; Status DC Lactobacillus Rhamnosus (Culturelle) 1 cap BID PO Last administered on at 19:59; Start 05/13/18 at 21:00 Quetiapine Fumarate (SEROquel) 25 mg DAILY PO ; Start 05/15/18 at 09:00; Status Cancel Neomycin/ Polymyxin/ Bacitracin (Triple Antibiotic Ointment) 1 pkt 1X ONCE TP Last administered on 05/15/18at 10:15; Start 05/15/18 at 10:15; Stop 05/15/18 at 10:16; Status DC Fluconazole (Diflucan) 100 mg 1X ONCE PO Last administered on 05/15/18at 16:25 ; Start 05/15/18 at 16:00; Stop 05/15/18 at 16:12; Status DC Nystatin (Nystop) 15 bessy STK-MED ONCE TP Last administered on 05/17/18at 17:12; Start 05/10/18 at 14:29; Stop 05/17/18 at 17:07; Status DC Quetiapine Fumarate (SEROquel) 37.5 mg TID@0900,1300,1700 PO Last administered on 05/26/18at 18:22; Start 05/19/18 at 09:00; Stop 05/26/18 at 19:39; Status DC Divalproex Sodium (Depakote Sprinkles) 125 mg BID@0900,1700 PO Last administered on 05/24/18at 08:18; Start 05/22/18 at 09:00; Stop 05/24/18 at 14:09 ; Status DC Divalproex Sodium (Depakote Sprinkles) 250 mg BID PO Last administered on at 20:00; Start 05/24/18 at 21:00 Quetiapine Fumarate (SEROquel) 37.5 mg 1300,1700 PO Last administered on at 17:27; Start 05/27/18 at 13:00 Quetiapine Fumarate (SEROquel) 50 mg DAILY PO Last administered on 05/28/18at 08 :01; Start 05/27/18 at 09:00 Metoprolol Tartrate (Lopressor) 25 mg BID PO Last administered on 05/28/18at 08: 02; Start 05/27/18 at 21:00 Divalproex Sodium (Depakote Sprinkles) 375 mg BID94 PO ; Start 05/29/18 at 09:00 Active Scripts Active Reported Proctosol-Hc (Hydrocortisone) 28.35 Gm Cream..g. 1 Applic RC BID Proctosol-Hc (Hydrocortisone) 28.35 Gm Cream..g. 1 Applic RC PRN BID PRN Ondansetron Hcl 4 Mg Tablet 4 Mg PO PRN TID PRN Metoprolol Tartrate 50 Mg Tablet 50 Mg PO BID Omeprazole 20 Mg Tablet.dr 20 Mg PO DAILY07 Citalopram Hbr (Citalopram Hydrobromide) 10 Mg Tablet 10 Mg PO DAILY Centrum Silver Tablet (Multivits-Min/Fa/Lycopene/Lut) 1 Each Tablet 1 Each PO DAILY Keflex (Cephalexin) 500 Mg Capsule 500 Mg PO Q6HRS Ultram (Tramadol HCl) 50 Mg Tablet 50 Mg PO BID PRN Tapazole (Methimazole) 5 Mg Tablet 5 Mg PO Q8HRS Seroquel (Quetiapine Fumarate) 25 Mg Tablet 25 Mg PO PRN DAILY PRN Seroquel (Quetiapine Fumarate) 25 Mg Tablet 25 Mg PO QHS Tylenol (Acetaminophen) 325 Mg Tablet 650 Mg PO BID Tylenol (Acetaminophen) 325 Mg Tablet 650 Mg PO PRN Q6HRS PRN I have reviewed the current psychotropics carefully including drug interactions. Risk benefit ratio favors no change other than as noted in my dictated progress note. Diagnosis: Problems: (1) Dementia due to Alzheimer's disease (2) Anxiety disorder (3) Dementia in Alzheimer's disease with delusions (4) Dementia in Alzheimer's disease with depression (5) Dementia, vascular, with delusions (6) Dementia, vascular, with depression (7) Impulse control disorder KADEN RIVAS MD May 28, 2018 21:03
[2018-05-29] MEDS ORDERED: TRAZ-85 PO ×2 (03:46→03:47)
[2018-05-29] MEDS ORDERED: OLAN5TAB5 PO (03:51)
[2018-05-29] MEDS ORDERED: LOPE2CAP PO (03:52)
[2018-05-29] MEDS ORDERED: LACT1CAP19 PO (03:55)
[2018-05-29] MEDS ORDERED: NYST15PO9 TP (03:56)
[2018-05-29 06:10] VITALS: BP 110/50
[2018-05-29] MEDS: LACTOBACILLUS RHAMNOSUS GG 1 CAPSULE. PO SCH (07:57)
[2018-05-29] MEDS: CITALOPRAM 10 MG TABLET. PO SCH (07:57)
[2018-05-29] MEDS: PANTOPRAZOLE 40 MG TABLET. PO SCH (07:57)
[2018-05-29] MEDS: MULTIVITAMIN with MINERAL TABLET. PO SCH (08:00)
[2018-05-29] MEDS: QUEtiapine 50 MG TABLET. PO SCH (08:00)
[2018-05-29] MEDS: ACETAMINOPHEN 325 MG TABLET PO SCH (08:00)
[2018-05-29] MEDS: NYSTATIN TOPICAL POWDER 15GM BOTTLE. TP SCH (08:01)
[2018-05-29] MEDS ORDERED: METH29OI TP (08:41)
[2018-05-29] MEDS ORDERED: DIVA125C PO (08:45)
[2018-05-29] MEDS ORDERED: MIRT15TA3 PO (08:48)
[2018-05-29] MEDS ORDERED: DIVALPROEX 125 MG CAP.SPRINK PO SCH (09:00)
[2018-05-29] MEDS ORDERED: MAG355OR11 PO (09:00)
[2018-05-29] MEDS ORDERED: MAGN2400 PO (09:02)
[2018-05-29] MEDS ORDERED: ONDA4TAB12 PO (09:27)
[2018-05-29 09:48] VITALS: BP 110/50
[2018-05-29] MEDS: METOPROLOL TART IMMED RELEASE 25 MG TABLET PO SCH (09:48)
[2018-05-29] MEDS: QUEtiapine 25 MG TABLET. PO SCH (12:33)
--- NOTE | 2018-05-29 20:36 | PDOC ---
Exam Note: [place] Note: Please also refer to the separate dictated note~for this date of service dictated separately.~Patient seen individually. Discussed the patient with Nursing staff reviewed the chart.~Reviewed interim history and current functioning. Reviewed vital signs,~Labs/ Radiology~and current medications noted below. Continue current treatment with the changes noted in the dictated addendum note Assessment: Vital Signs: Vital Signs Date Time Temp Pulse Resp B/P (MAP) Pulse Ox O2 Delivery O2 Flow Rate FiO2 05/29/18 09:48 72 110/50 05/29/18 06:10 98.0 14 96 05/28/18 16:23 Room Air I&O Intake and Output 05/29/18 06:59 Intake Total 1800 ml Balance 1800 ml Intake Oral 1800 ml # Voids 1 # Bowel Movements 1 Current Medications: Meds: Current Medications Ceftriaxone Sodium 1 gm/ Sodium Chloride 50 ml @ 100 mls/hr 1X ONCE IV ; Start 05/03/18 at 22:30; Stop 05/03/18 at 22:30; Status DC Ceftriaxone Sodium (Rocephin Im) 1 gm 1X ONCE IM Last administered on at 22:46; Start 05/03/18 at 22:45; Stop 05/03/18 at 23:54; Status DC Ceftriaxone Sodium (Rocephin) 1 gm STK-MED ONCE IV ; Start 05/03/18 at 22:37; Stop 05/03/18 at 22:38; Status DC Acetaminophen (Tylenol) 650 mg PRN Q6HRS PRN PO PAIN / TEMP; Start 05/03/18 at 23:15; Status Cancel Multi-Ingredient Ointment (Analgesic [place]) 1 tr PRN QID PRN TP MUSCLE PAIN; Start 05/03/18 at 23:15; Stop 05/29/18 at 13:03; Status DC Al Hydroxide/Mg Hydroxide (Mylanta Plus Xs) 15 ml PRN AFTMEALHC PRN PO DYSPEPSIA; Start 05/03/18 at 23:15; Stop 05/29/18 at 13:03; Status DC Magnesium Hydroxide (Milk Of Magnesia) 2,400 mg PRN QHS PRN PO CONSTIPATION; Start 05/03/18 at 23:15; Stop 05/29/18 at 13:03; Status DC Citalopram Hydrobromide (CeleXA) 10 mg DAILY PO Last administered on 05/29/18at 07:57; Start 05/04/18 at 09:00; Stop 05/29/18 at 13:03; Status DC Non-Formulary Medication (Quetiapine Fumarate (Seroquel)) 25 mg PRN DAILY PRN PO AGITATION; Start 05/04/18 at 00:15; Status UNV Non-Formulary Medication (Quetiapine Fumarate (Seroquel)) 25 mg QHS PO ; Start 05/04/18 at 21:00; Status UNV Acetaminophen (Tylenol) 650 mg BID PO Last administered on 05/29/18at 08:00; Start 05/04/18 at 09:00; Stop 05/29/18 at 13:03; Status DC Acetaminophen (Tylenol) 650 mg PRN Q6HRS PRN PO PAIN; Start 05/04/18 at 00:15; Stop 05/29/18 at 13:03; Status DC Hydrocortisone (Proctosol-Hc) 1 tr PRN BID PRN RC RECTAL PAIN; Start 05/04/18 at 00:15; Stop 05/29/18 at 13:03; Status DC Tramadol HCl (Ultram) 50 mg PRN BID PRN PO PAIN Last administered on 05/27/18at 22:07; Start 05/04/18 at 00:15; Stop 05/29/18 at 13:03; Status DC Non-Formulary Medication (Cephalexin (Keflex)) 500 mg Q6HRS PO ; Start 05/04/18 at 06:00; Status UNV Non-Formulary Medication (Methimazole (Tapazole)) 5 mg Q8HRS PO ; Start 05/04/18 at 06:00; Status UNV Non-Formulary Medication (Metoprolol Tartrate ) 50 mg BID PO ; Start 05/04/18 at 09:00; Stop 05/04/18 at 09:00; Status Cancel Non-Formulary Medication (Multivits-Min/ Fa/Lycopene/Lut (Centrum Silver Tablet) ) 1 each DAILY PO ; Start 05/04/18 at 09:00; Stop 05/04/18 at 09:00; Status DC Non-Formulary Medication (Omeprazole ) 20 mg DAILY07 PO ; Start 05/04/18 at 07:00 ; Stop 05/04/18 at 07:00; Status DC Non-Formulary Medication (Ondansetron Hcl ) 4 mg PRN TID PRN PO NAUSEA/VOMITING ; Start 05/04/18 at 00:15; Status UNV Cephalexin HCl (Keflex) 500 mg Q6HRS PO Last administered on 05/06/18at 17:55; Start 05/04/18 at 06:00; Stop 05/06/18 at 19:00; Status DC Methimazole (Tapazole) 5 mg Q8HRS PO Last administered on 05/29/18at 12:33; Start 05/04/18 at 06:00; Stop 05/29/18 at 13:03; Status DC Quetiapine Fumarate (SEROquel) 25 mg HS PO Last administered on 05/08/18at 20:45 ; Start 05/04/18 at 21:00; Stop 05/09/18 at 18:48; Status DC Quetiapine Fumarate (SEROquel) 25 mg PRN DAILY PRN PO ANXIETY / AGITATION Last administered on 05/05/18at 22:11; Start 05/04/18 at 02:30; Stop 05/06/18 at 18:40; Status DC Ondansetron HCl (Zofran Odt) 4 mg PRN TID PRN PO NAUSEA/VOMITING; Start at 02:30; Stop 05/29/18 at 13:03; Status DC Metoprolol Tartrate (Lopressor) 50 mg BID PO Last administered on 05/27/18at 08: 59; Start 05/04/18 at 09:00; Stop 05/27/18 at 15:42; Status DC Multivitamins/ Calcium (Thera-M Plus) 1 tab DAILY PO Last administered on at 08:00; Start 05/04/18 at 09:00; Stop 05/29/18 at 13:03; Status DC Pantoprazole Sodium (Protonix) 40 mg DAILYAC PO Last administered on 05/29/18at 07:57; Start 05/04/18 at 07:30; Stop 05/29/18 at 13:03; Status DC Trazodone HCl (Desyrel) 25 mg PRN QHS PRN PO INSOMNIA, MAY REPEAT X1 Last administered on 05/05/18at 22:12; Start 05/04/18 at 19:45; Stop 05/06/18 at 18:40; Status DC Mirtazapine (Remeron) 7.5 mg QHS PO Last administered on 05/07/18at 20:57; Start 05/05/18 at 21:00; Stop 05/08/18 at 11:20; Status DC Quetiapine Fumarate (SEROquel) 12.5 mg DAILY PO Last administered on 05/06/18at 11:41; Start 05/06/18 at 09:00; Stop 05/06/18 at 18:40; Status DC Quetiapine Fumarate (SEROquel) 12.5 mg 0900,1700 PO Last administered on at 10:35; Start 05/07/18 at 09:00; Stop 05/07/18 at 16:38; Status DC Trazodone HCl (Desyrel) 50 mg PRN QHS PRN PO INSOMNIA, MAY REPEAT X1 Last administered on 05/13/18at 21:25; Start 05/06/18 at 18:45; Stop 05/29/18 at 13:03 ; Status DC Trazodone HCl (Desyrel) 50 mg QHS PO Last administered on 05/27/18at 22:06; Start 05/06/18 at 21:00; Stop 05/29/18 at 13:03; Status DC Olanzapine (ZyPREXA ZYDIS) 2.5 mg PRN Q2HR PRN PO PSYCHOSIS Last administered on 05/21/18at 18:17; Start 05/06/18 at 18:45; Stop 05/29/18 at 13:03; Status DC Quetiapine Fumarate (SEROquel) 12.5 mg 0900,1300,1700 PO Last administered on at 17:27; Start 05/07/18 at 17:00; Stop 05/09/18 at 18:48; Status DC Mirtazapine (Remeron) 15 mg QHS PO Last administered on 05/28/18at 20:00; Start 05/08/18 at 21:00; Stop 05/29/18 at 13:03; Status DC Loperamide HCl (Imodium) 2 mg PRN QID PRN PO DIARRHEA Last administered on 05/23at 17:13; Start 05/08/18 at 16:30; Stop 05/29/18 at 13:03; Status DC Quetiapine Fumarate (SEROquel) 25 mg 1700,2100 PO Last administered on at 17:18; Start 05/09/18 at 21:00; Stop 05/18/18 at 20:07; Status DC Quetiapine Fumarate (SEROquel) 12.5 mg 0900,1300 PO Last administered on at 13:52; Start 05/10/18 at 09:00; Stop 05/10/18 at 19:08; Status DC Quetiapine Fumarate (SEROquel) 12.5 mg DAILY@1300 PO Last administered on at 14:00; Start 05/11/18 at 13:00; Stop 05/12/18 at 18:28; Status DC Quetiapine Fumarate (SEROquel) 25 mg DAILY PO Last administered on 05/18/18at 09 :19; Start 05/11/18 at 09:00; Stop 05/18/18 at 20:07; Status DC Nystatin (Nystop) 1 tr BID TP Last administered on 05/29/18at 08:01; Start 05/11 at 21:00; Stop 05/29/18 at 13:03; Status DC Docusate Sodium (Colace) 100 mg BID PO Last administered on 05/19/18at 20:20; Start 05/12/18 at 21:00; Stop 05/20/18 at 18:08; Status DC Quetiapine Fumarate (SEROquel) 25 mg DAILY@1300 PO Last administered on at 13:43; Start 05/13/18 at 13:00; Stop 05/14/18 at 19:23; Status DC Ciprofloxacin (Cipro) 500 mg BID PO Last administered on 05/20/18at 08:53; Start 05/13/18 at 10:00; Stop 05/20/18 at 09:59; Status DC Lactobacillus Rhamnosus (Culturelle) 1 cap BID PO Last administered on at 07:57; Start 05/13/18 at 21:00; Stop 05/29/18 at 13:03; Status DC Quetiapine Fumarate (SEROquel) 25 mg DAILY PO ; Start 05/15/18 at 09:00; Status Cancel Neomycin/ Polymyxin/ Bacitracin (Triple Antibiotic Ointment) 1 pkt 1X ONCE TP Last administered on 05/15/18at 10:15; Start 05/15/18 at 10:15; Stop 05/15/18 at 10:16; Status DC Fluconazole (Diflucan) 100 mg 1X ONCE PO Last administered on 05/15/18at 16:25 ; Start 05/15/18 at 16:00; Stop 05/15/18 at 16:12; Status DC Nystatin (Nystop) 15 tr STK-MED ONCE TP Last administered on 05/17/18at 17:12; Start 05/10/18 at 14:29; Stop 05/17/18 at 17:07; Status DC Quetiapine Fumarate (SEROquel) 37.5 mg TID@0900,1300,1700 PO Last administered on 05/26/18at 18:22; Start 05/19/18 at 09:00; Stop 05/26/18 at 19:39; Status DC Divalproex Sodium (Depakote Sprinkles) 125 mg BID@0900,1700 PO Last administered on 05/24/18at 08:18; Start 05/22/18 at 09:00; Stop 05/24/18 at 14:09 ; Status DC Divalproex Sodium (Depakote Sprinkles) 250 mg BID PO Last administered on at 20:00; Start 05/24/18 at 21:00; Stop 05/29/18 at 07:01; Status DC Quetiapine Fumarate (SEROquel) 37.5 mg 1300,1700 PO Last administered on at 12:33; Start 05/27/18 at 13:00; Stop 05/29/18 at 13:03; Status DC Quetiapine Fumarate (SEROquel) 50 mg DAILY PO Last administered on 05/29/18at 08 :00; Start 05/27/18 at 09:00; Stop 05/29/18 at 13:03; Status DC Metoprolol Tartrate (Lopressor) 25 mg BID PO Last administered on 05/28/18at 08: 02; Start 05/27/18 at 21:00; Stop 7/26/18 at 13:04; Status DC Divalproex Sodium (Depakote Sprinkles) 375 mg BID94 PO Last administered on at 08:00; Start 05/29/18 at 09:00; Stop 05/29/18 at 13:04; Status DC Active Scripts Active Reported Milk Of Magnesia (Magnesium Hydroxide) 2,400 Mg/10 Ml Oral.susp 2,400 Mg PO PRN QHS PRN Maalox Advanced Suspension (Mag Hydrox/Aluminum Hyd/Simeth) 355 Ml Oral.susp 15 Ml PO PRN AFTMEALHC PRN Mirtazapine 15 Mg Tablet 15 Mg PO QHS Depakote Sprinkle (Divalproex Sodium) 125 Mg Cap.sprink 375 Mg PO BID@0900,1600 Analgesic [place] (Methyl Salicylate/Menthol) 28 Gm Oint...g. 1 Tr TP Nystatin 15 Gm Powder 1 Tr TP BID Culturelle (Lactobacillus Rhamnosus Gg) 1 Each Cap.sprink 1 Each PO BID Loperamide (Loperamide Hcl) 2 Mg Capsule 2 Mg PO PRN QID PRN not to exceed 8 capsules in 24 hours. Zyprexa Zydis (Olanzapine) 5 Mg Tab.rapdis 2.5 Mg PO PRN Q2HR PRN max daily dose 7.5mg/24 hours Trazodone Hcl 50 Mg Tablet 50 Mg PO PRN QHS PRN may repeat if first dose is not effective. Trazodone Hcl 50 Mg Tablet 50 Mg PO HS Give PRN dose if first dose is not effective after 30 minutes. Proctosol-Hc (Hydrocortisone) 28.35 Gm Cream..g. 1 Applic RC PRN BID PRN Ondansetron Hcl 4 Mg Tablet 4 Mg PO PRN TID PRN Metoprolol Tartrate 50 Mg Tablet 50 Mg PO BID Omeprazole 20 Mg Tablet.dr 20 Mg PO DAILY07 Citalopram Hbr (Citalopram Hydrobromide) 10 Mg Tablet 10 Mg PO DAILY Centrum Silver Tablet (Multivits-Min/Fa/Lycopene/Lut) 1 Each Tablet 1 Each PO DAILY Ultram (Tramadol HCl) 50 Mg Tablet 50 Mg PO BID PRN Tapazole (Methimazole) 5 Mg Tablet 5 Mg PO Q8HRS Seroquel (Quetiapine Fumarate) 25 Mg Tablet 50 Mg PO DAILY@0900 Seroquel (Quetiapine Fumarate) 25 Mg Tablet 37.5 Mg PO BID@1300,1700 Tylenol (Acetaminophen) 325 Mg Tablet 650 Mg PO BID Tylenol (Acetaminophen) 325 Mg Tablet 650 Mg PO PRN Q6HRS PRN I have reviewed the current psychotropics carefully including drug interactions. Risk benefit ratio favors no change other than as noted in my dictated progress note. Diagnosis: Problems: (1) Dementia with behavioral disturbance (2) Anxiety disorder (3) Dementia in Alzheimer's disease with delusions (4) Dementia in Alzheimer's disease with depression (5) Dementia, vascular, with delusions (6) Dementia, vascular, with depression (7) Impulse control disorder KADEN RIVAS MD May 29, 2018 20:36
--- NOTE | 2018-05-30 23:28 | DS ---
DATE OF DISCHARGE: 05/29/2018 DISCHARGE SUMMARY/PSYCHIATRIC PROGRESS NOTE This is a late entry, date of service 05/29/2018, covers elements not covered in my initial note 05/29/2018. REASON FOR ADMISSION: Please refer to the admission history for details. Briefly, the patient is a 73-year-old female referred to us from [facility] by her primary care physician/psychiatrist on account of worsening aggressive behaviors. The patient was slapping other residents of the facility, throwing things, extremely confused, disorganized, appeared psychotic. She is disruptive at the longterm, unmanageable, referred for inpatient psychiatric stabilization. SIGNIFICANT FINDINGS AND CLINICAL COURSE: Following admission, the patient was seen daily individually by myself, followed medically per Dr. Gabriel/Dr. Sherman. She was extremely confused, agitated, labile, paranoid, and psychotic. Adjustments were made in her psychotropics. She seemed to respond to a combination of Seroquel 50 mg at 0900, 37.5 mg at 1300 and 1700, Remeron 15 mg at bedtime, Zyprexa p.r.n., Celexa 10 mg a day, trazodone 50 mg at bedtime, march repeat x 1 for insomnia, Depakote 375 mg twice a day with CBC, CMP, valproic acid level to be checked 3 days post-discharge since the prior level was 17, subtherapeutic on Depakote 250 b.i.d. Gradually, mood appeared to improve. She was much more redirectable. Certainly remained confused, but not aggressive, psychotic symptoms appeared to subside. CONDITION AT DISCHARGE: Improved. REVIEW OF SYSTEMS: Prior to discharge, no CV, , pulmonary, eye, ENT system symptoms on review. MENTAL STATUS EXAM: Oriented to herself. Insight, judgment, recent and remote memory, attention, concentration, fund of knowledge poor, consistent with her diagnosis. FINAL DIAGNOSES: Major neurocognitive disorder, Alzheimer, vascular with delusion, depression, behavioral disturbance; anxiety disorder, unspecified; impulse control disorder, unspecified. Rest unchanged from admission. DISCHARGE MEDICATIONS: Please refer to the [facility]. KADEN RIVAS MD DR: ZAHRA/marian JOB#: [id number] / [id number]
--- NOTE | 2018-05-31 11:27 | PN ---
DATE: 05/28/2018 PSYCHIATRIC PROGRESS NOTE This is a late entry of 05/28/2018, covers elements not covered in my initial note. SUBJECTIVE: I met with the patient evening of 05/28/2018. The patient slept 6-1/4 hours previous evening. She remains confused, wanders up and down the hallways, redirects better. REVIEW OF SYSTEMS: No CV, , pulmonary, eye, ENT system symptoms on review. MENTAL STATUS EXAMINATION: Oriented to herself. Insight, judgment, recent and remote memory, attention, concentration, fund of knowledge poor, consistent with her diagnosis mentioned in my initial note. Valproic acid level is subtherapeutic at 17. PLAN: Increase Depakote from 250 b.i.d. to 375 mg b.i.d. Check CBC, CMP, and valproic acid level in 3 days. Continue rest unchanged from initial note. Possible transition to halfway 05/29/2018. KADEN RIVAS MD DR: ZAHRA/marian JOB#: [id number] / [id number]
== END 2018-05-29 13:03 | DRG 57 ==
LOC: ER 20:23 → GEROPSY 22:49
PROVIDERS: ADMIT Psychiatry & Neurology Psychiatry; ATTEND Psychiatry & Neurology Psychiatry
DX: G30.9 Alzheimer's disease, unspecified (principal); F01.51 Vascular dementia, unspecified severity, with behavioral disturbance; F02.81 Dementia in other diseases classified elsewhere, unspecified severity, with behavioral disturbance; N39.0 Urinary tract infection, site not specified; B35.6 Tinea cruris; E03.9 Hypothyroidism, unspecified; E05.90 Thyrotoxicosis, unspecified without thyrotoxic crisis or storm; K21.9 Gastro-esophageal reflux disease without esophagitis; G47.00 Insomnia, unspecified; F32.9 Major depressive disorder, single episode, unspecified; F41.9 Anxiety disorder, unspecified; F63.9 Impulse disorder, unspecified; I10 Essential (primary) hypertension; L60.0 Ingrowing nail; Z66 Do not resuscitate; Z91.83 Wandering in diseases classified elsewhere
CPT/HCPCS: 36415; 80053; 80061; 80164; 81001; 82306; 82607; 83036; 83540; 83550; 83735; 84436; 84443; 85025; 86592; 87045; 87086; 87186; 87324; 93005; 96372; J0696; 99285-25